=== PATIENT | female | born 1965 | race Caucasian/White ===

== ENCOUNTER 2019-02-25 10:37 | Outpatient (RCR) | payer MEDICARE, SELFPAY | END 2019-03-10 00:01 | LOC: ONCRAD 10:37 | PROVIDERS: Family Provider Family Medicine; Visit Provider Specialist | DX: C15.5 Malignant neoplasm of lower third of esophagus (principal); C79.51 Secondary malignant neoplasm of bone; C77.2 Secondary and unspecified malignant neoplasm of intra-abdominal lymph nodes; C79.72 Secondary malignant neoplasm of left adrenal gland; G89.3 Neoplasm related pain (acute) (chronic); K21.9 Gastro-esophageal reflux disease without esophagitis; E11.9 Type 2 diabetes mellitus without complications; M54.5 Low back pain; Z79.891 Long term (current) use of opiate analgesic | CPT/HCPCS: 77290; 77295; 77300 ×2; 77301; 77334 ×2; 77338; 77470; 99205 ==

== ENCOUNTER 2019-03-22 18:19 | Emergency (ER) | payer MEDICARE, SELFPAY ==
[2019-03-22 18:38] VITALS: BP 131/98; PULSE 83; RESP 16; TEMP 37; O2SAT 100; BMI 23.3
--- NOTE | 2019-03-22 20:20 | ED_ITS ---
Entered by Hannah Gutierrez, acting as scribe for Jerod Banda MD, [facility] 22, 2019 18:19 HPI - General Adult General: Chief complaint: General Medical Stated complaint: Cancer Pt dehydration Time Seen by Provider: 03/22/19 20:19 Source: patient Mode of arrival: ambulatory Limitations: no limitations History of Present Illness: HPI narrative: 53 yo Female presents to ED with complaint of dehydration. Pt has esophageal cancer. Pt states she has back pain and is dehydrated. Pt states that she got choked and threw up. Pt's friend states that the tumor lays on her back and puts pressure on the nerves. Pt's friend states that the patient got very tired after her choking episode. Pt's friend states that the patient has had to get hydration treatments every 3-4 days and today is the 4th day. complaint: back pain/dehydrated Onset (ago): hour(s) Location: back Radiation: non-radiation Severity scale (1-10): 10 Quality: sharp Pain Consistency: constant Relieving factors: none Exacerbating factors: none Associated symptoms: Reports fevers/chills, nausea and vomiting Review of Systems General: Reports: 10 or more systems reviewed and unremarkable except in HPI and below Const: Reports: fever and chills GI: Reports: nausea and vomiting Musc: Reports: back pain PFSH ED PFSH: Statuses (acute, chronic, etc) shown below reflect problem list status as previously entered and may not be historically accurate Medical History (Updated 03/22/19 @ 22:53 by Jerod Banda MD, [facility] Biliary colic (Acute) Cholecystitis (Acute) Cholelithiasis (Acute) GI bleeding (Acute) HTN (hypertension) (Acute) UTI (urinary tract infection) (Acute) Surgical History (Updated 03/22/19 @ 20:33 by Hannah Gutierrez) History of cholecystectomy (Acute) Social History Smoking and tobacco status: never smoked Physical Exam Const: COMMON NORMALS: no apparent distress, average body habitus, oriented x3, no limitations, healthy appearing, alert and well nourished HENMT: COMMON NORMALS: normocephalic, head/scalp atraumatic, hearing grossly normal bilaterally, external ears normal, EAC's normal, TM's normal bilaterally, external nose normal, nasal mucous membranes and turbinates normal, moist oral mucous membranes, oropharynx normal, dentition normal and gingiva normal HEAD & SCALP: normocephalic and atraumatic NOSE: external nose normal and nasal mucous membranes and turbinates normal EXTERNAL EAR: Yes external ears normal EXTERNAL AUDITORY CANAL: EAC's normal TYMPANIC MEMBRANE: TM's normal bilaterally Eye: COMMON NORMALS: PERRL, EOMs intact bilaterally, conjunctivae normal, no scleral icterus, no papilledema, normal visual alston by confrontation and fundi normal bilaterally CONJUNCTIVA: Yes conjunctivae normal PUPIL: Yes PERRL DIRECT OPHTHALMOSCOPY: Yes no papilledema and Yes fundi normal bilaterally Neck/C-Spine: COMMON NORMALS: full ROM, supple, no meningeal signs, no JVD and no carotid bruits Chest: COMMONS NORMALS: inspection of chest normal and palpation of chest normal Resp: COMMON NORMALS: normal respiratory effort, no retractions, no use of accessory muscles, clear to auscultation bilaterally and percussion normal AUSCULTATION: clear to auscultation bilaterally PERCUSSION: percussion normal Cardio: COMMON NORMALS: no JVD, regular rate, regular rhythm, S1 normal heart sound, S2 normal heart sound, no gallops, no clicks, no murmurs, no rub and peripheral pulses 2+ throughout RATE: regular rate RHYTHM: regular rhythm HEART SOUNDS: S1 normal and S2 normal PERIPHERAL PULSES: pulses 2+ throughout GI: COMMON NORMALS: normal to inspection, nondistended, normoactive bowel sounds, soft to palpation, non-tender, no hepatosplenomegaly, no masses and no bruits PALPATION: Yes soft and Yes no hepatosplenomegaly : COMMON NORMALS: Yes no CVA tenderness BLADDER/KIDNEY EXAM: Yes no CVA tenderness Back/Pelvis: COMMON NORMALS: no CVA tenderness Extremity: COMMON NORMALS: normal to inspection, full ROM, normal capillary refill, no joint enlargement, no clubbing, cyanosis or edema, no calf tenderness and no pedal edema Neuro: COMMON NORMALS: oriented x3 SENSORIUM/ORIENTATION: Yes alert MENINGEAL SIGNS: Yes no meningeal signs Skin: COMMON NORMALS: no rashes or lesions noted, no wounds, skin turgor normal, no jaundice, no petechiae and no mottling GENERAL SKIN EXAM: no rashes or lesions noted and turgor normal Course Reevaluation(s): Reevaluation #1: Patient seen she feels much better. Pain resolved, no other symptoms. Discussed her lab and imaging findings with her-no acute findings. She is feels she is ready to go home. We will discharge her home with no new orders or medication. She voiced understanding and is in agreement with the plan. Time: 22:51 Vital Signs: Vital signs: Vital Signs Temperature 98.6 F 03/22/19 18:38 Pulse Rate 70 03/22/19 21:42 Respiratory Rate 18 03/22/19 21:42 Blood Pressure 123/85 03/22/19 21:42 Pulse Oximetry 100 03/22/19 21:42 MDM - General Adult MDM Narrative: Medical decision making narrative: Patient with metastatic esophageal cancer who presents to the emergency department with nonspecific s ymptoms. Evaluation in the emergency department was unremarkable. She is discharged home with no new orders. Medical Records: Attestation: I reviewed the patient's medical records. Lab Data: Attestation: I reviewed the patient's lab results. Labs: Lab Results 03/22/19 03/22/19 Range/Units 21:08 21:08 WBC 3.8 L (4.0-10.0) 10^3/ uL RBC 4.19 (4.1-5.3) 10^6/u L Hgb 11.8 (11.5-15.3) g/dL Hct 36.8 L (37.0-47.0) % MCV 87.8 (81-99) fL MCH 28.2 (28.0-34.0) pg MCHC 32.1 (30.0-36.0) g/dL RDW 13.8 (12.1-15.1) % Plt Count 178 (130-400) 10^3/c mm MPV 10.3 (7.4-10.4) fL Neut % (Auto) 71.6 % Lymph % (Auto) 15.9 % [place] % (Auto) 10.9 % Eos % (Auto) 0.8 % Baso % (Auto) 0.3 % Neut # (Auto) 2.8 (1.8-7.7) 10^3/u L Lymph # (Auto) 0.6 L (0.8-4.8) 10^3/u L [place] # (Auto) 0.4 (0.2-0.9) 10^3/u L Eos # (Auto) 0.0 (0.0-0.8) 10^3/u L Baso # (Auto) 0.0 (0.0-0.1) 10^3/u L Nucleated RBC % (a uto) 0 % Nucleated RBCs # 0.0 /100WBC Sodium 148 H (136-145) mmol/L Potassium 3.7 (3.5-5.1) mmol/L Chloride 106 (98-107) mmol/L Carbon Dioxide 26 (22-29) mmol/L Anion Gap 19.7 H (5-19) BUN 6 (6-20) mg/dL Creatinine 0.4 L (0.5-0.9) mg/dL GFR Calculation 165.7 H (90-130) mL/min Glucose 108 (74-109) mg/dL Calcium 9.2 (8.6-10.0) mg/Dl Total Bilirubin 0.6 (0.15-1.2) mg/dL AST 14 (0-32) U/L ALT 7 (0-33) U/L Alkaline Phosphata se 85 (35-105) IU/L Total Protein 6.4 L (6.6-8.7) g/dL Albumin 3.4 L (3.5-5.2) g/dL Globulin 3.0 (1.3-4.6) g/dL Lipase 12 L (13-60) U/L Imaging Data^: CXR: Attestation: I personally reviewed and interpreted this imaging study as follows: My impression: No acute findings Discharge Plan Discharge Patient Disposition: Home, Self-Care Clinical Impression: Vomiting Qualifiers: Vomiting type: unspecified Vomiting Intractability: non-intractable Nausea presence: with nausea Qualified Code(s): R11.2 - Nausea with vomiting, unspecified Condition: Stable Prescriptions: New Zofran 4 mg tablet 4 mg PO Q8H PRN (Reason: nausea and vomiting) Qty: 30 RF: 0 Continued oxycodone 15 mg tablet 15 mg PO Q4H RF: 0 famotidine 20 mg tablet 20 mg PO BID RF: 0 lisinopril 10 mg tablet 10 mg PO DAILY RF: 0 metoprolol succinate 25 mg tablet extended release 24 hr 12.5 mg PO DAILY RF: 0 ondansetron 4 mg tablet,disintegrating 4 mg translingual Q4H RF: 0 fluticasone propionate 50 mcg/actuation spray,suspension 1 spray INTRANASAL DAILY RF: 0 rosuvastatin 20 mg tablet 20 mg PO DAILY RF: 0 Discharge Orders: Discharge Order (Routine); Ordered 03/22/19 Ordered By: Jerod Banda Referrals: Antony Armstrong MD [Primary Care Provider] - 1-3 days Discharge Diet: Advance as tolerated Discharge Activity: Resume usual activity Activity Restrictions/Additional Instructions: Return for any new or worsening symptoms. Follow-up with your primary care provider within 3 days. Take the medicine for nausea as needed for nausea or vomiting. Drink plenty of fluids to keep well-hydrated. Coding Level of Care Code ED Manager Of Transportation for Chg Fwd Exam Problem Focused The documentation recorded by the Matt marrero Carmen, accurately reflects the service I personally performed and the decisions made by Solo ty Adegoke I, MD, [facility] Mar 22, 2019 18:19
[2019-03-22 20:24] VITALS: BP 136/98; PULSE 81; RESP 18; O2SAT 100
--- NOTE | 2019-03-22 21:07 | XR_ITS ---
WS: [id number] PROCEDURE: XR chest 2V* [id number] CLINICAL INFORMATION: vomiting COMPARISON: FINDINGS: Heart: Normal cardiac silhouette. Lungs: Lungs are clear. No consolidation or pleural fluid. Segmental elevation right hemidiaphragm. Bones: Normal visualized bony structures. XR/XR chest 2V* [id number] IMPRESSION: No acute chest findings.
[2019-03-22 21:21] LABS: Basophils % 0.3 %; Eosinophils % 0.8 %; Hematocrit 36.8 % (37.0-47.0); Hemoglobin 11.8 g/dL (11.5-15.3); Lymphocytes # 0.6 10^3/uL (0.8-4.8); Lymphocytes % 15.9 %; Mean Corpuscular HGB Conc 32.1 g/dL (30.0-36.0); Mean Corpuscular Hemoglobin 28.2 pg (28.0-34.0); Mean Corpuscular Volume 87.8 fL (81-99); Mean Platelet Volume 10.3 fL (7.4-10.4); Monocytes # 0.4 10^3/uL (0.2-0.9); Monocytes % 10.9 %; Neutrophils # 2.8 10^3/uL (1.8-7.7); Neutrophils % 71.6 %; Nucleated Red Blood Cells % 0 %; Platelet Count 178 10^3/cmm (130-400); Red Blood Count 4.19 10^6/uL (4.1-5.3); Red Cell Distribution Width 13.8 % (12.1-15.1); White Blood Count 3.8 10^3/uL (4.0-10.0)
[2019-03-22 21:31] VITALS: RESP 16
[2019-03-22] MEDS: morphine 4 mg/mL SDV 1 mL 6 MG IVP (21:31)
[2019-03-22] MEDS: sodium chloride 0.9% 1,000 ML 999 ML IV (21:32)
[2019-03-22] MEDS: ondansetron 2 mg/ML SDV 2 mL 4 MG IVP (21:32)
[2019-03-22 21:38] LABS: Alanine Aminotransferase 7 U/L (0-33); Albumin Level 3.4 g/dL (3.5-5.2); Alkaline Phosphatase 85 IU/L (35-105); Anion Gap 19.7 (5-19); Aspartate Amino Transferase 14 U/L (0-32); Blood Urea Nitrogen 6 mg/dL (6-20); Calcium 9.2 mg/Dl (8.6-10.0); Carbon Dioxide 26 mmol/L (22-29); Chloride 106 mmol/L (98-107); Glomerular Filtration Rate 165.7 mL/min (90-130); Glucose 108 mg/dL (74-109); Lipase 12 U/L (13-60); Potassium 3.7 mmol/L (3.5-5.1); Sodium 148 mmol/L (136-145); Total Bilirubin 0.6 mg/dL (0.15-1.2); Total Protein 6.4 g/dL (6.6-8.7)
[2019-03-22 21:42] VITALS: BP 123/85; PULSE 70; RESP 18; O2SAT 100
[2019-03-22 23:28] VITALS: BP 138/98; PULSE 89; RESP 16; O2SAT 97
== END 2019-03-22 23:28 | disposition home or self-care (01) ==
PROVIDERS: Emergency Provider Family Medicine; Family Provider Family Medicine; PCP Family Medicine
DX: R11.2 Nausea with vomiting, unspecified (principal); Z85.01 Personal history of malignant neoplasm of esophagus; I10 Essential (primary) hypertension
CPT/HCPCS: 71046; 80053; 83690; 85025; 96360; 96361; 96374; 96375; 99282; J2270; J2405; J7030

== ENCOUNTER 2019-04-08 15:47 | Emergency (ER) | payer MEDICARE, SELFPAY ==
[2019-04-08 16:30] VITALS: BP 133/76; PULSE 86; RESP 16; TEMP 36.3; O2SAT 100; BMI 21.6
--- NOTE | 2019-04-08 16:34 | XR_ITS ---
WS: [id number] Left femur and thigh, AP and lateral views, 04/08/2019 Clinical Data: FALL Comparison: None. Findings: No fractures or dislocations are seen. The soft tissues are normal. The visualized knee shows no abno rmalities. XR/XR femur LT min 2V* [id number] Impression: Negative left femur and thigh.
--- NOTE | 2019-04-08 16:34 | XR_ITS ---
WS: [id number] Left hip, 2 views, 04/08/2019 Clinical Data: FALL Comparison: None. Findings: No fractures or dislocations are seen. The hip joint is intact. The soft tissues are not remarkable. The adjacent pelvis is normal. XR/XR hip LT 2-3V wo/w pel* [id number] Impression: Negative left hip.
--- NOTE | 2019-04-08 19:09 | ED_ITS ---
HPI - Fall General: Chief Complaint: Fall Stated Complaint: fall Time Seen by Provider: 04/08/19 18:57 Source: patient Mode of arrival: ambulatory Limitations: no limitations History of Present Illness: HPI Narrative: Patient comes in for evaluation after a trip and fall at the [employer] store injuring her left hip and leg. Patient does have a history of cancer and is presently under treatment with radiation. Patient denies any other complaints of pain or discomfort. Patient appears well. Patient appears in moderate pain. Review of Systems General: Reports: 10 or more systems reviewed and unremarkable except in HPI and below Musc: Reports: extremity pain (left hip and leg) PFS ED PFSH: Statuses (acute, chronic, etc) shown below reflect problem list status as previously entered and may not be historically accurate Medical History (Updated 04/08/19 @ 19:11 by ACACIA Gauthier) Biliary colic (Acute) Cholecystitis (Acute) Cholelithiasis (Acute) GI bleeding (Acute) HTN (hypertension) (Acute) UTI (urinary tract infection) (Acute) Surgical History (Updated 03/22/19 @ 20:33 by Hannah Gutierrez) History of cholecystectomy (Acute) Social History Smoking and tobacco status: never smoked Physical Exam Const: COMMON NORMALS: no apparent distress and oriented x3 GENERAL APPEARANCE: cooperative HENMT: COMMON NORMALS: normocephalic, external ears normal, EAC's normal, TM's normal bilaterally and external nose normal HEAD & SCALP: normal to inspection and normocephalic FACE & SINUS: normal facial exam NOSE: external nose normal GENERAL EAR: hearing not grossly impaired EXTERNAL EAR: Yes external ears normal EXTERNAL AUDITORY CANAL: EAC's normal TYMPANIC MEMBRANE: TM's normal bilaterally MOUTH: oral and palatal mucosa normal THROAT: posterior oropharynx normal Eye: COMMON NORMALS: PERRL and EOMs intact bilaterally PUPIL: Yes PERRL Neck/C-Spine: COMMON NORMALS: full ROM and no lymphadenopathy Lymph: LYMPHATIC: no lymphedema noted Chest: COMMONS NORMALS: inspection of chest normal and palpation of chest normal Resp: COMMON NORMALS: normal respiratory effort and clear to auscultation bilaterally AUSCULTATION: clear to auscultation bilaterally Cardio: COMMON NORMALS: regular rate and regular rhythm RATE: regular rate RHYTHM: regular rhythm GI: COMMON NORMALS: normal to inspection, nondistended, normoactive bowel sounds and non-tender : COMMON NORMALS: Yes no CVA tenderness BLADDER/KIDNEY EXAM: Yes no CVA tenderness Back/Pelvis: COMMON NORMALS: no CVA tenderness and thoracic and lumbar spine normal to inspection Extremity: COMMON NORMALS: normal to inspection NARRATIVE EXTREMITY EXAM: no deformity noted, tenderness noted to lateral left hip, and left knee, no obvious deformity GENERAL: No edema Neuro: COMMON NORMALS: oriented x3, moves all extremities and no focal motor deficits Psych: COMMON NORMALS: mental status grossly normal and cooperative Skin: COMMON NORMALS: no rashes or lesions noted GENERAL SKIN EXAM: no rashes or lesions noted Course Vital Signs: Vital signs: Vital Signs Temperature 97.4 F L 04/08/19 16:30 Pulse Rate 86 04/08/19 16:30 Respiratory Rate 16 04/08/19 16:30 Blood Pressure 133/76 04/08/19 16:30 Pulse Oximetry 100 04/08/19 16:30 MDM - Fall MDM Narrative: Medical decision making narrative: Patient comes in for evaluation of injury sustained during a fall at the [employer]. Exam notes no obvious injury or deformity. Patient is weightbearing with help of a cane. Patient does have some tenderness to the musculature. Differential diagnosis includes fractures, sprains, contusions, intervertebral disc injury. X-rays of the hip and femur on the left side noted no fracture. Patient reports understanding agreed to plan for treatment and need for follow-up. Patient was medicated in the ER for pain and nausea. Patient tolerated well. Discharge Plan Discharge Patient Disposition: Home, Self-Care Clinical Impression: Fall from other slipping, tripping, or stumbling Contusion Qualifiers: Encounter type: initial encounter Contusion area: hip Laterality: left Qualified Code(s): S70.02XA - Contusion of left hip, initial encounter Condition: Stable Prescriptions: No Action oxycodone 15 mg tablet 15 mg PO Q4H RF: 0 famotidine 20 mg tablet 20 mg PO BID RF: 0 lisinopril 10 mg tablet 10 mg PO DAILY RF: 0 metoprolol succinate 25 mg tablet extended release 24 hr 12.5 mg PO DAILY RF: 0 ondansetron 4 mg tablet,disintegrating 4 mg translingual Q4H RF: 0 fluticasone propionate 50 mcg/actuation spray,suspension 1 spray INTRANASAL DAILY RF: 0 rosuvastatin 20 mg tablet 20 mg PO DAILY RF: 0 Zofran 4 mg tablet 4 mg PO Q8H PRN (Reason: nausea and vomiting) Qty: 30 RF: 0 Discharge Orders: Discharge Order (Routine); Ordered 04/08/19 Ordered By: Jason Darby Referrals: Antony Armstrong MD [Primary Care Provider] - Discharge Diet: Usual diet Discharge Activity: Increase activity as tolerated Patient Instructions: Contusion Activity Restrictions/Additional Instructions: Activity as tolerated Drink plenty of water Follow-up with primary care in one week or as needed Return to ER as needed Coding Level of Care Code ED Cash Management Officer for Chg Fwd Exam Problem Focused
[2019-04-08] MEDS: HYDROcodone-acetaminophen 5-325 mg Tablet 1 TAB PO (19:15)
[2019-04-08] MEDS: ondansetron 4 MG Tablet PO (19:18)
[2019-04-08] MEDS: ondansetron 2 mg/ML SDV 2 mL 4 MG IM (19:32)
[2019-04-08 19:42] VITALS: RESP 16; O2SAT 99
[2019-04-08] MEDS: morphine 4 mg/mL SDV 1 mL IM (19:42)
--- NOTE | 2019-04-08 20:01 | PC.NURSE ---
after PO meds adm, pt began to vomit with both pills in emesis. New orders obtained from PA to adm meds via IM shots
[2019-04-08 20:02] VITALS: BP 127/87; PULSE 86; RESP 16; TEMP 36.8; O2SAT 99
== END 2019-04-08 20:00 | disposition home or self-care (01) ==
PROVIDERS: Emergency Provider Nurse Practitioner Family; Family Provider Family Medicine; PCP Family Medicine
DX: S70.02XA Contusion of left hip, initial encounter (principal); W01.0XXA Fall on same level from slipping, tripping and stumbling without subsequent striking against object, initial encounter; Y92.512 Supermarket, store or market as the place of occurrence of the external cause; I10 Essential (primary) hypertension
CPT/HCPCS: 73502; 73552; 96372; 99281; 99283; J2270; J2405; Q0162

== ENCOUNTER 2019-04-10 05:47 | Outpatient (RCR) | payer MEDICARE, SELFPAY ==
[2019-03-13 10:06] LABS: Basophils % 0.2 %; Eosinophils % 0.4 %; Hematocrit 40.9 % (37.0-47.0); Hemoglobin 13.2 g/dL (11.5-15.3); Lymphocytes # 1.2 10^3/uL (0.8-4.8); Lymphocytes % 23.8 %; Mean Corpuscular HGB Conc 32.3 g/dL (30.0-36.0); Mean Corpuscular Hemoglobin 27.8 pg (28.0-34.0); Mean Corpuscular Volume 86.1 fL (81-99); Mean Platelet Volume 11.1 fL (7.4-10.4); Monocytes # 0.5 10^3/uL (0.2-0.9); Monocytes % 9.9 %; Neutrophils # 3.4 10^3/uL (1.8-7.7); Neutrophils % 65.3 %; Nucleated Red Blood Cells % 0 %; Platelet Count 228 10^3/cmm (130-400); Red Blood Count 4.75 10^6/uL (4.1-5.3); Red Cell Distribution Width 13.5 % (12.1-15.1); White Blood Count 5.2 10^3/uL (4.0-10.0)
[2019-03-13 10:22] LABS: Alanine Aminotransferase 7 U/L (0-33); Albumin Level 4.1 g/dL (3.5-5.2); Alkaline Phosphatase 89 IU/L (35-105); Anion Gap 14.6 (5-19); Aspartate Amino Transferase 9 U/L (0-32); Blood Urea Nitrogen 14 mg/dL (6-20); Carbon Dioxide 27 mmol/L (22-29); Chloride 103 mmol/L (98-107); Globulin 2.9 g/dL (1.3-4.6); Glomerular Filtration Rate 128.1 mL/min (90-130); Glucose 142 mg/dL (74-109); Potassium 3.6 mmol/L (3.5-5.1); Sodium 141 mmol/L (136-145); Total Bilirubin 0.4 mg/dL (0.15-1.2)
[2019-03-13] MEDS: sodium chloride 0.9% 1,000 ML 999 ML IV (10:22)
[2019-03-19] MEDS: sodium chloride 0.9% 1,000 ML 999 ML IV (10:31)
[2019-03-20] MEDS: sodium chloride 0.9% 1,000 ML 999 ML IV (11:01)
--- NOTE | 2019-03-23 12:20 | ONCRAD TMN_ITS ---
Radiation Oncology Weekly Treatment Management Patient: Maria D Stubbs MR#: [id number] : 1965> Age: 53> Sex: Female Dictated by: Dr. Alber Seaman Date of Service: 03/17/2019 Referring Physician(s) : Dr. 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 ID: [id number], Energy: 15X, Dose/Fx (cGy): 300, #Fx: , Dose Correction (cGy): 0, Total Dose (cGy): 300, Start Date: 03/17/2019, Elapsed Days: 0 Esophagus 50Gy, Treatment Site: [id number], Ref. ID: [id number], Energy: 6X, Dose/Fx (cGy): 250, #Fx: , Dose Correction (cGy): 0, Total Dose (cGy): 250, Start Date: 03/17/2019, Elapsed Days: 0 Current Complaints/Interval History: Constitutional Complains of lack of appetite and change in weight down 8.6 lbs. since last visit on 02/25/19. Denies fatigue, fever and night sweats. ENMT Denies odynophagia but has dysphagia tolerating soft diet. Respiratory Complains of hiccoughs. Denies cough and dyspnea. Gastrointestinal Complains of vomiting had it on Saturday. Denies abdominal pain, heartburn / dyspepsia and nausea. Musculoskeletal Complains of bone pain on the right lower side of the back. Denies muscle weakness. Current Medications: Dexamethasone, hydroCHLOROthiazide, lisinopril, metoprolol Succinate ER, oxyCODONE HCl, oxyCODONE HCl, raNITIdine HCl, senna S. Allergies: Latex and Adhesive tape. Vital Signs: Performed on 03/17/2019 1:44 PM BMI - 24.629 kg/m2 (high), Height - 65.00 in, Weight - 148.0 lbs, Temperature - 97.6 f, Pulse - 76, Respiration - 20, O2 Sat - 99 %, Pain - 10 and BP - 130/ 86 mm(hg). Physical Exam: Appears stable, no skin erythema or desquamation. Performance Status: 0 - Fully active, able to carry on all predisease activities without restrictions. (ECOG) Lab: Test performed on 03/13/2019 11:10 AM Cr Clearance (Est) - 142.56 ml/min (high). Imaging: No new diagnostic imaging was performed since the last weekly treatment visit. All radiation therapy related imaging (including but not limited to kV and CBCT generated images) was reviewed. Appropriate changes, if any, were made to assure accurate target localization. Impression/Plan: Started RT today. Continue treatment as planned. CPT: 43937 Signed by: Dr. Alber Seaman>03/23/2019 12:18:52 PM <<Signature on File>>
--- NOTE | 2019-03-24 14:14 | ONCRAD TMN_ITS ---
Radiation Oncology Weekly Treatment Management Patient: Maria D Stubbs MR#: [id number] : 1965> Age: 53> Sex: Female Dictated by: Dr. Alber Seaman Date of Service: 03/24/2019 Referring Physician(s) : Dr. 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 ID: [id number], Energy: 15X, Dose/Fx (cGy): 300, #Fx: , Dose Correction (cGy): 0, Total Dose (cGy): 1,800, Start Date: 03/17/2019, Elapsed Days: 7 Treatment Site: [id number], Ref. ID: [id number], Energy: 6X, Dose/Fx (cGy): 250, #Fx: , Dose Correction (cGy): 0, Total Dose (cGy): 1,500, Start Date: 03/17/2019, Elapsed Days: 7 Current Complaints/Interval History: Constitutional Complains of lack of appetite and has to eat soft foods and drinking liquids and gained 4.2 lbs. since last OTV on 03/17/19. Denies fatigue, fever and night sweats. ENMT Dysphagia improved some tolerating soft diet. Respiratory Complains of hiccoughs occasionally. Denies cough, dyspnea and wheezing. Gastrointestinal Complains of vomiting had it a couple of times on Saturday. Denies abdominal pain, constipation, diarrhea, heartburn / dyspepsia and nausea. Musculoskeletal The pain between the shoulder blades is improving Current Medications: Dexamethasone, hydroCHLOROthiazide, lisinopril, metoprolol Succinate ER, ondansetron, oxyCODONE HCl, oxyCODONE HCl, raNITIdine HCl, senna S. Allergies: Latex and Adhesive tape. Vital Signs: Performed on 03/24/2019 1:29 PM BMI - 25.328 kg/m2 (high), Height - 65.00 in, Weight - 152.2 lbs, Temperature - 97.8 f, Pulse - 82, Respiration - 20, O2 Sat - 99 %, Pain - 5 and BP - 102/ 65 mm(hg). Physical Exam: Appears stable, no skin erythema or desquamation. Performance Status: 0 - Fully active, able to carry on all predisease activities without restrictions. (ECOG) Lab: Test performed on 03/13/2019 11:10 AM Cr Clearance (Est) - 142.56 ml/min (high). Imaging: No new diagnostic imaging was performed since the last weekly treatment visit. All radiation therapy related imaging (including but not limited to kV and CBCT generated images) was reviewed. Appropriate changes, if any, were made to assure accurate target localization. Impression/Plan: Tolerating treatment well with good response. Continue treatment as planned. CPT: 91386 Signed by: Dr. Alber Seaman>03/24/2019 2:12:34 PM <<Signature on File>>
[2019-03-25] MEDS: sodium chloride 0.9% 500 ML IV (13:30)
[2019-03-31] MEDS: sodium chloride 0.9% 1,000 ML 999 ML IV (13:58)
--- NOTE | 2019-03-31 16:34 | ONCRAD TMN_ITS ---
Radiation Oncology Weekly Treatment Management Patient: Maria D Stubbs MR#: [id number] : 1965> Age: 53> Sex: Female Dictated by: Dr. Alber Seaman Date of Service: 03/31/2019 Referring Physician(s) : Dr. 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 ID: [id number], Energy: 15X, Dose/Fx (cGy): 300, #Fx: , Dose Correction (cGy): 0, Total Dose (cGy): 3,000, Start Date: 03/17/2019, End Date: 03/30/2019, Elapsed Days: 13 Treatment Site: [id number], Ref. ID: [id number], Energy: 6X, Dose/Fx (cGy): 250, #Fx: , Dose Correction (cGy): 0, Total Dose (cGy): 2,750, Start Date: 03/17/2019, Elapsed Days: 14 Current Complaints/Interval History: Constitutional Complains of lack of appetite. Complains of mild fatigue. Complains of rigors / chills. Complains of change in weight. Denies fever and night sweats. ENMT Dysphagia improved but has odynophagia when eating some solid food. Respiratory Denies cough, dyspnea, hiccoughs and wheezing. Gastrointestinal Complains of nausea and intermittent vomiting. Denies abdominal pain, constipation, diarrhea and heartburn / dyspepsia. Current Medications: Dexamethasone, hydroCHLOROthiazide, lisinopril, metoprolol Succinate ER, ondansetron, oxyCODONE HCl, oxyCODONE HCl, raNITIdine HCl, senna S. Allergies: Latex and Adhesive tape. Vital Signs: Performed on 03/31/2019 1:36 PM BMI - 23.53 kg/m2 (high), Height - 65.00 in, Weight - 141.4 lbs, Temperature - 98.5 f, Pulse - 98, Respiration - 20, O2 Sat - 98 %, Pain - 10 and BP - 145/ 87 mm(hg)(high/). Physical Exam: Appears stable, no skin erythema or desquamation. Performance Status: 0 - Fully active, able to carry on all predisease activities without restrictions. (ECOG) Lab: Test performed on 03/13/2019 11:10 AM Cr Clearance (Est) - 142.56 ml/min (high). Imaging: No new diagnostic imaging was performed since the last weekly treatment visit. All radiation therapy related imaging (including but not limited to kV, CBCT generated images) was reviewed. Appropriate changes, if any, were made to assure accurate target localization. Impression/Plan: Tolerating treatment well with expected side effects. Continue treatment as planned. She will get IV fluid today. Encouraged nutrient intake CPT: 71285 Signed by: Dr. Alber Seaman>03/31/2019 4:32:03 PM <<Signature on File>>
[2019-04-02] MEDS: sodium chloride 0.9% 500 ML IV (13:40)
[2019-04-09] MEDS: sodium chloride 0.9% 1,000 ML 999 ML IV (13:58)
--- NOTE | 2019-04-14 12:10 | ONCRAD TMN_ITS ---
Radiation Oncology Weekly Treatment Management Patient: Maria D Stubbs MR#: [id number] : 1965 Age: 53 Sex: Female Dictated by: Dr. Alber Seaman Date of Service: 04/09/2019 Referring Physician(s) : Dr. 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 ID: [id number], Energy: 15X, Dose/Fx (cGy): 300, #Fx: , Dose Correction (cGy): 0, Total Dose (cGy): 3,000, Start Date: 03/17/2019, End Date: 03/30/2019, Elapsed Days: 13 Course: Esophagus 50Gy, Treatment Site: [id number], Ref. ID: [id number], Energy: 6X, Dose/Fx (cGy): 250, #Fx: , Dose Correction (cGy): 0, Total Dose (cGy): 4,187.5, Start Date: 03/17/2019, Elapsed Days: 23 Course: Esophagus 50Gy, Treatment Site: [id number], Ref. ID: [id number], Energy: 6X, Dose/Fx (cGy): 62.5, #Fx: , Dose Correction (cGy): 0, Total Dose (cGy): 62.5, Start Date: 04/03/2019, End Date: 04/03/2019, Elapsed Days: 0 Current Complaints/Interval History: Constitutional Complains of lack of appetite. Complains of mild fatigue. Complains of rigors / chills. Denies fever and night sweats. ENMT Denies dysphagia but has odynophagia occasionally. Respiratory Denies cough, dyspnea, hiccoughs and wheezing. Gastrointestinal Complains of nausea and intermittent vomiting. Denies abdominal pain and heartburn / dyspepsia. Current Medications: Dexamethasone, hydroCHLOROthiazide, lisinopril, magnesium Citrate, metoprolol Succinate ER, ondansetron, oxyCODONE HCl, oxyCODONE HCl, raNITIdine HCl, senna S. Allergies: Latex and Adhesive tape. Vital Signs: Performed on 04/09/2019 1:33 PM BMI - 23.564 kg/m2 (high), Height - 65.00 in, Weight - 141.6 lbs, Temperature - 97.3 f, Pulse - 95, Respiration - 20, O2 Sat - 99 %, Pain - 8 and BP - 105/ 77 mm(hg). Physical Exam: Appears stable, no skin erythema or desquamation. Performance Status: 1 - No physically strenuous activity, but ambulatory and able to carry out light or sedentary work (e.g. office work, light house work). (ECOG) Lab: Test performed on 03/13/2019 11:10 AM Cr Clearance (Est) - 142.56 ml/min (high). Imaging: No new diagnostic imaging was performed since the last weekly treatment visit. All radiation therapy related imaging (including but not limited to CBCT generated images) was reviewed. Appropriate changes, if any, were made to assure accurate target localization. Impression/Plan: Tolerating treatment well with good response ??? improved dysphagia. Continue treatment as planned. CPT: 32779 Signed by: Dr. Alber Seaman>04/14/2019 12:09:11 PM <<Signature on File>>
== END 2019-04-10 23:59 | disposition home or self-care (01) ==
LOC: ONCMED 05:47
PROVIDERS: Internal Medicine Medical Oncology; Family Provider Family Medicine; PCP Family Medicine; Visit Provider Radiology Radiation Oncology
DX: Z51.0 Encounter for antineoplastic radiation therapy (principal); C15.5 Malignant neoplasm of lower third of esophagus; C79.51 Secondary malignant neoplasm of bone; E86.0 Dehydration; G89.3 Neoplasm related pain (acute) (chronic); Z79.891 Long term (current) use of opiate analgesic
CPT/HCPCS: 77014; 77280; 77336; 77386; 77387; 77412; 77427; 80053; 85025; 96360; 96361; 96365; 96367; 96375; G6002; J1100; J2405; J3490; J7030; J7040

== ENCOUNTER 2019-04-16 05:49 | Outpatient (RCR) | payer MEDICARE, SELFPAY ==
[2019-04-14] MEDS: sodium chloride 0.9% 1,000 ML 999 ML IV (14:10)
== END 2019-04-16 23:59 | disposition home or self-care (01) ==
LOC: ONCMED 05:49
PROVIDERS: Family Provider Family Medicine; PCP Family Medicine; Visit Provider Radiology Radiation Oncology
DX: Z51.0 Encounter for antineoplastic radiation therapy (principal); C15.5 Malignant neoplasm of lower third of esophagus; E86.0 Dehydration
CPT/HCPCS: 77386; 96361; 96365; 96367; J1100; J2405; J3490; J7030

== ENCOUNTER 2019-04-18 15:20 | Emergency (ER) | payer MEDICARE, SELFPAY ==
[2019-04-18 15:24] VITALS: BP 114/80; PULSE 99; RESP 18; TEMP 36.6; O2SAT 99; BMI 28.3
--- NOTE | 2019-04-18 16:29 | USCV_ITS ---
Maria D Stubbs Age: 53 Gender: F : 1965 Exam Date: 04/18/2019 16:40 Ordering Phys: Bryson Chapman AUCTION ASSISTANT Technologist: Amna Naqvi Exam Location: [facility] [place] Indication: Lower extremity swelling HISTORY: Lower extremity swelling. PROCEDURES: Comparison: none available. Grayscale and duplex color Doppler venous Ultrasound performed in bilateral lower extremities. The following venous structures were evaluated: common femoral vein, profunda vein, proximal portion of the greater saphenous vein, superficial femoral vein, and the popliteal vein. In addition, the posterior tibial and peroneal trunk were evaluated. Serial compression, augmentation maneuvers, and spectral Doppler flow evaluation were performed. FINDINGS: Within the bilateral lower extremity deep venous system, including the common femoral, femoral, popliteal, posterior tibial and peroneal veins, appropriate anechoic, compressible lumens are noted. Duplex color Doppler evaluation shows spontaneous cepahalad flow with appropriate augmentation waveforms. The saphenofemoral junction is/are patent. No evidence of DVT seen in any vessel visualized at this time. Mid calf veins not well seen, bilaterally. CONCLUSIONS No evidence of bilateral lower extremity occlusive or obvious non occlusive DVT. Ricardo Ackerman MD (Electronically Signed) Final Date: 19 April 2019 08:40 S
--- NOTE | 2019-04-18 16:30 | XR_ITS ---
WS: [id number] ONE VIEW CHEST HISTORY: 53 years old Female with lower extremity swelling AP upright chest comparison 03/22/2019 FINDINGS: Lungs are clear and well aerated and costophrenic angle sharp. Heart size and pulmonary vascular timmy ings unremarkable. No subdiaphragmatic free air. No fracture seen. XR/XR chest 1V portable [id number] IMPRESSION: No acute cardiopulmonary findings.
--- NOTE | 2019-04-18 16:33 | ED_ITS ---
HPI - General Adult General: Chief complaint: General Medical Stated complaint: legs/feet swelling pain Time Seen by Provider: 04/18/19 15:59 History of Present Illness: HPI narrative: Patient is a 53-year-old female who presents to the emergency department with complaint of swelling to both lower extremities for last 3 to 4 days. She denies any falls. She does admit to similar episode of swelling in 2008 but is not aware of any congestive heart failure, DVTs or PEs. She is not called her primary care provider about this issue. She has a history of hypertension, diabetes and esophageal cancer undergoing radiation. No chemotherapy. Status post cholecystectomy. Allergic to tape and latex. Denies any pain. Denies any chest pain, pressure, tightness or shortness of breath. Radiation: non-radiation Exacerbating factors: eating (May be worse since she is eating more soup.) Associated symptoms: Deny chest pain, dyspnea, headache(s), rash or short of breath Review of Systems Const: Denies: fever Eyes: Denies: change in vision ENMT: Denies: dry mouth Card: Reports: edema; Denies: chest pain Resp: Denies: shortness of breath GI: Denies: abdominal pain : Denies: flank pain, difficulty urinating or painful urination Musc: Reports: extremity swelling; Denies: redness Skin/Breast: Reports: skin swelling; Denies: rash Neuro: Denies: headache or weakness in extremities Psych: Denies: anxiety Endo: Denies: excessive urination Fidel/Lymph: Denies: purpura All/Imm: Denies: hives PFSH ED PFSH: Statuses (acute, chronic, etc) shown below reflect problem list status as previously entered and may not be historically accurate Medical History (Updated 04/18/19 @ 18:18 by Bryson Chapman NP) Biliary colic (Acute) Cholecystitis (Acute) Cholelithiasis (Acute) GI bleeding (Acute) HTN (hypertension) (Acute) UTI (urinary tract infection) (Acute) Surgical History (Updated 03/22/19 @ 20:33 by Hannah Gutierrez) History of cholecystectomy (Acute) Social History Smoking and tobacco status: former smoker Physical Exam Const: COMMON NORMALS: no apparent distress and alert GENERAL APPEARANCE: cooperative ORIENTATION/CONSCIOUSNESS: Yes awake, Yes oriented to person, Yes oriented to place and Yes oriented to time HENMT: COMMON NORMALS: normocephalic HEAD & SCALP: normocephalic Eye: GENERAL EYE: normal appearance of both eyes Neck/C-Spine: CERVICAL SPINE: Yes cervical ROM normal Lymph: LYMPHATIC: no lymphadenopathy noted Chest: CHEST: Yes symmetrical chest wall rise Resp: COMMON NORMALS: normal respiratory effort Cardio: COMMON NORMALS: regular rate and regular rhythm RATE: regular rate RHYTHM: regular rhythm GI: COMMON NORMALS: soft to palpation INSPECTION: Yes normal to inspection AUSCULTATION: Yes normoactive bowel sounds PALPATION: Yes soft Back/Pelvis: THORACIC SPINE/UPPER BACK: Yes normal to inspection LUMBAR SPINE/LOWER BACK: Yes normal to inspection Extremity: GENERAL: Yes normal exam except as noted and Yes edema (2+) Neuro: SENSORIUM/ORIENTATION: Yes alert, Yes oriented to person, Yes oriented to place and Yes oriented to time Psych: COMMON NORMALS: speech normal APPEARANCE: Yes grossly normal ATTITUDE: Yes calm ACTIVITY/MOTOR BEHAVIOR: Yes appropriate eye contact SPEECH: Yes normal speech Skin: COMMON NORMALS: no rashes or lesions noted GENERAL SKIN EXAM: no rashes or lesions noted OTHER: small bruise to right 2nd toe. no laceration Course ED course: Patient has had incomplete work-up in the emergency room for bilateral lower extremity. She wishes to sign out AGAINST MEDICAL ADVICE. She states she will follow-up with her primary care provider. Vital Signs: Vital signs: Vital Signs Temperature 97.8 F 04/18/19 15:24 Pulse Rate 99 04/18/19 15:24 Respiratory Rate 18 04/18/19 15:24 Blood Pressure 114/80 04/18/19 15:24 Pulse Oximetry 99 04/18/19 15:24 MDM - General Adult MDM Narrative: Medical decision making narrative: 1754 patient with hypokalemia. 40 meq KCL ordered. Patient with UTI. 1814 patient informed of current status of lab and pending delta troponin. She states she cannot wait any longer she has a cousin that needs to get home. Patient wishes to sign out AGAINST MEDICAL ADVICE. Informed patient to follow- up with primary care provider for ongoing evaluation of her bilateral lower extremity swelling. Will provide antibiotics for discharge. Discussed risks of significant heart failure, ID, stroke, and disability without complete work-up with her history. Patient verbalized understanding. She wishes to sign out AGAINST MEDICAL ADVICE again. Patient has capacity for rational thought process and verbalized understanding of risk. Differential Diagnosis: Differential Diagnosis: DVT, low protein, peripheral edema, history of cancer, CHF, ID Lab Data: Labs: Lab Results 04/18/19 04/18/19 04/18/19 Range/Units 16:23 17:06 17:06 WBC 6.1 (4.0-10.0) 10^3/ uL RBC 4.02 L (4.1-5.3) 10^6/u L Hgb 11.3 L (11.5-15.3) g/dL Hct 36.3 L (37.0-47.0) % MCV 90.3 (81-99) fL MCH 28.1 (28.0-34.0) pg MCHC 31.1 (30.0-36.0) g/dL RDW 14.2 (12.1-15.1) % Plt Count 137 (130-400) 10^3/c mm MPV 10.6 H (7.4-10.4) fL Neut % (Auto) 88.4 % Lymph % (Auto) 2.3 % Arenac % (Auto) 7.9 % Eos % (Auto) 0.0 % Baso % (Auto) 0.2 % Neut # (Auto) 5.4 (1.8-7.7) 10^3/u L Lymph # (Auto) 0.1 L (0.8-4.8) 10^3/u L [place]ac # (Auto) 0.5 (0.2-0.9) 10^3/u L Eos # (Auto) 0.0 (0.0-0.8) 10^3/u L Baso # (Auto) 0.0 (0.0-0.1) 10^3/u L Nucleated RBC % (a uto) 0 % Nucleated RBCs # 0.0 /100WBC Sodium 138 (136-145) mmol/L Potassium 3.0 L (3.5-5.1) mmol/L Chloride 98 (98-107) mmol/L Carbon Dioxide 29 (22-29) mmol/L Anion Gap 14.0 (5-19) BUN 12 (6-20) mg/dL Creatinine 0.5 (0.5-0.9) mg/dL GFR Calculation 128.1 (90-130) mL/min Glucose 109 (65-115) mg/dL Calcium 8.8 (8.5-10.5) mg/dL Total Bilirubin 0.6 (0.15-1.2) mg/dL AST 8 (0-32) U/L ALT 7 (0-33) U/L Alkaline Phosphata se 87 (35-105) IU/L Troponin T Baselin e (0-10) ng/mL NT-Pro-B Natriuret Pep 551 H (0-125) pg/mL Total Protein 5.4 L (6.6-8.7) g/dL Albumin 2.2 L (3.5-5.2) g/dL Globulin 3.2 (1.3-4.6) g/dL Urine Color Yellow (Yellow) Urine Appearance Hazy A (CLEAR) Urine pH 7 (5-7) Ur Specific Gravit y 1.000 L (1.005-1.030) Urine Protein 1+ H (Negative) Urine Glucose (UA) Norm (Normal) Urine Ketones 1+ H (Negative) Urine Occult Blood 3+ H (Negative) Urine Nitrate Negative (Negative) Urine Bilirubin 1+ H (NEGATIVE) Urine Urobilinogen 4 H (Negative) mg/dL Ur Leukocyte Hanna ase 2+ H (Negative) Urine RBC 40-50 H (0-2) /hpf Urine WBC 55-80 H (0-5) /hpf Ur Squamous Epith Cells 10-15 H (0-5) Urine Bacteria 2+ H (NONE) Urine Mucus Trace 04/18/19 Range/Units 17:06 WBC (4.0-10.0) 10^3/ uL RBC (4.1-5.3) 10^6/u L Hgb (11.5-15.3) g/dL Hct (37.0-47.0) % MCV (81-99) fL MCH (28.0-34.0) pg MCHC (30.0-36.0) g/dL RDW (12.1-15.1) % Plt Count (130-400) 10^3/c mm MPV (7.4-10.4) fL Neut % (Auto) % Lymph % (Auto) % Arenac % (Auto) % Eos % (Auto) % Baso % (Auto) % Neut # (Auto) (1.8-7.7) 10^3/u L Lymph # (Auto) (0.8-4.8) 10^3/u L A[place]ac # (Auto) (0.2-0.9) 10^3/u L Eos # (Auto) (0.0-0.8) 10^3/u L Baso # (Auto) (0.0-0.1) 10^3/u L Nucleated RBC % (a uto) % Nucleated RBCs # /100WBC Sodium (136-145) mmol/L Potassium (3.5-5.1) mmol/L Chloride (98-107) mmol/L Carbon Dioxide (22-29) mmol/L Anion Gap (5-19) BUN (6-20) mg/dL Creatinine (0.5-0.9) mg/dL GFR Calculation (90-130) mL/min Glucose (65-115) mg/dL Calcium (8.5-10.5) mg/dL Total Bilirubin (0.15-1.2) mg/dL AST (0-32) U/L ALT (0-33) U/L Alkaline Phosphata se (35-105) IU/L Troponin T Baselin e 25 H (0-10) ng/mL NT-Pro-B Natriuret Pep (0-125) pg/mL Total Protein (6.6-8.7) g/dL Albumin (3.5-5.2) g/dL Globulin (1.3-4.6) g/dL Urine Color (Yellow) Urine Appearance (CLEAR) Urine pH (5-7) Ur Specific Gravit y (1.005-1.030) Urine Protein (Negative) Urine Glucose (UA) (Normal) Urine Ketones (Negative) Urine Occult Blood (Negative) Urine Nitrate (Negative) Urine Bilirubin (NEGATIVE) Urine Urobilinogen (Negative) mg/dL Ur Leukocyte Hanna ase (Negative) Urine RBC (0-2) /hpf Urine WBC (0-5) /hpf Ur Squamous Epith Cells (0-5) Urine Bacteria (NONE) Urine Mucus Discharge Plan Discharge Patient Disposition: Left Against Medical Advice Clinical Impression: Edema, peripheral, Acute hypokalemia Condition: Stable Prescriptions: New nitrofurantoin monohyd/m-cryst [Macrobid] 100 mg capsule 100 mg PO BID 7 Days Qty: 14 RF: 0 No Action oxycodone 15 mg tablet 15 mg PO Q4H RF: 0 famotidine 20 mg tablet 20 mg PO BID RF: 0 lisinopril 10 mg tablet 10 mg PO DAILY RF: 0 metoprolol succinate 25 mg tablet extended release 24 hr 12.5 mg PO DAILY RF: 0 ondansetron 4 mg tablet,disintegrating 4 mg translingual Q4H RF: 0 fluticasone propionate 50 mcg/actuation spray,suspension 1 spray INTRANASAL DAILY RF: 0 rosuvastatin 20 mg tablet 20 mg PO DAILY RF: 0 Zofran 4 mg tablet 4 mg PO Q8H PRN (Reason: nausea and vomiting) Qty: 30 RF: 0 Discharge Orders: Discharge Order (Routine); Ordered 04/18/19 Ordered By: Bryson Chapman Referrals: Antony Armstrong MD [Primary Care Provider] - Discharge Diet: Advance as tolerated Discharge Activity: Increase activity as tolerated Patient Instructions: Leg Edema (ED) Activity Restrictions/Additional Instructions: Please follow-up with your primary care provider for ongoing evaluation of your lower extremity swelling. Return the emergency room for worsening symptoms or concerns. Coding Level of Care Code ED Hospital Food Service Worker for Pancho Fwkeith Exam Problem Focused
[2019-04-18 17:17] LABS: Basophils % 0.2 %; Hematocrit 36.3 % (37.0-47.0); Hemoglobin 11.3 g/dL (11.5-15.3); Lymphocytes # 0.1 10^3/uL (0.8-4.8); Lymphocytes % 2.3 %; Mean Corpuscular HGB Conc 31.1 g/dL (30.0-36.0); Mean Corpuscular Hemoglobin 28.1 pg (28.0-34.0); Mean Corpuscular Volume 90.3 fL (81-99); Mean Platelet Volume 10.6 fL (7.4-10.4); Monocytes # 0.5 10^3/uL (0.2-0.9); Monocytes % 7.9 %; Neutrophils # 5.4 10^3/uL (1.8-7.7); Neutrophils % 88.4 %; Nucleated Red Blood Cells % 0 %; Platelet Count 137 10^3/cmm (130-400); Red Blood Count 4.02 10^6/uL (4.1-5.3); Red Cell Distribution Width 14.2 % (12.1-15.1); White Blood Count 6.1 10^3/uL (4.0-10.0)
[2019-04-18 17:33] LABS: Bilirubin Urine 1+ (NEGATIVE); Blood Urine 3+ (Negative); Glucose Urine UA Norm (Normal); Ketones Urine 1+ (Negative); Nitrate Urine Negative (Negative); Protein Urine 1+ (Negative); Urine Appearance Hazy (CLEAR); Urine Color Yellow (Yellow); Urobilinogen Urine 4 mg/dL (Negative); pH Urine 7 (5-7)
[2019-04-18 17:33] LABS: Troponin(5th) Baseline 25 ng/mL (0-10)
[2019-04-18 17:34] LABS: Add Urine Microscopic? YES; Leukocyte Esterase Urine 2+ (Negative)
[2019-04-18 17:39] LABS: Mucus Urine TRACE
[2019-04-18 17:41] LABS: RBC Urine 40-50 /hpf (0-2)
[2019-04-18 17:42] LABS: Alanine Aminotransferase 7 U/L (0-33); Albumin Level 2.2 g/dL (3.5-5.2); Alkaline Phosphatase 87 IU/L (35-105); Aspartate Amino Transferase 8 U/L (0-32); Blood Urea Nitrogen 12 mg/dL (6-20); Calcium 8.8 mg/dL (8.5-10.5); Carbon Dioxide 29 mmol/L (22-29); Chloride 98 mmol/L (98-107); Globulin 3.2 g/dL (1.3-4.6); Glomerular Filtration Rate 128.1 mL/min (90-130); Glucose 109 mg/dL (65-115); NT Pro B Type Natriuretic Pept 551 pg/mL (0-125); Sodium 138 mmol/L (136-145); Total Bilirubin 0.6 mg/dL (0.15-1.2); Total Protein 5.4 g/dL (6.6-8.7)
[2019-04-18 17:42] LABS: Bacteria Urine 2+; WBC Urine 55-80 /hpf (0-5)
[2019-04-18 17:43] LABS: Add Urine Culture? Yes
--- NOTE | 2019-04-18 18:28 | ECG_ITS ---
Measurements Intervals [place] Rate: 96 P: 11 NM: 128 QRS: 9 QRSD: 95 T: 10 QT: 332 QTc: 421 SINUS RHYTHM WITH OCCASIONAL SUPRAVENTRICULAR PREMATURE COMPLEXES NONSPECIFIC T-WAVE ABNORMALITY Compared to ECG 06/22/2016 03:39:09 T-wave abnormality now present Myocardial infarct finding no longer present Electronically Signed On 04-19-2019 0:22:37 [employer] TAPPER HELPER by Lena Rangel M.D. [id number]
--- NOTE | 2019-04-18 18:28 | ED_ITS ---
HPI - General Adult General: Chief complaint: General Medical Stated complaint: legs/feet swelling pain Time Seen by Provider: 04/18/19 15:59 History of Present Illness: Exacerbating factors: eating (May be worse since she is eating more soup.) PFSH ED PFSH: Statuses (acute, chronic, etc) shown below reflect problem list status as previously entered and may not be historically accurate Medical History (Updated 04/18/19 @ 18:28 by Bryson Chapman NP) Biliary colic (Acute) Cholecystitis (Acute) Cholelithiasis (Acute) GI bleeding (Acute) HTN (hypertension) (Acute) UTI (urinary tract infection) (Acute) Surgical History (Updated 03/22/19 @ 20:33 by Hannah Gutierrez) History of cholecystectomy (Acute) Social History Smoking and tobacco status: former smoker Course Vital Signs: Vital signs: Vital Signs Temperature 97.8 F 04/18/19 15:24 Pulse Rate 99 04/18/19 15:24 Respiratory Rate 18 04/18/19 15:24 Blood Pressure 114/80 04/18/19 15:24 Pulse Oximetry 99 04/18/19 15:24 MDM - General Adult Lab Data: Labs: Lab Results 04/18/19 04/18/19 04/18/19 Range/Units 16:23 17:06 17:06 WBC 6.1 (4.0-10.0) 10^3/ uL RBC 4.02 L (4.1-5.3) 10^6/u L Hgb 11.3 L (11.5-15.3) g/dL Hct 36.3 L (37.0-47.0) % MCV 90.3 (81-99) fL MCH 28.1 (28.0-34.0) pg MCHC 31.1 (30.0-36.0) g/dL RDW 14.2 (12.1-15.1) % Plt Count 137 (130-400) 10^3/c mm MPV 10.6 H (7.4-10.4) fL Neut % (Auto) 88.4 % Lymph % (Auto) 2.3 % Andrews % (Auto) 7.9 % Eos % (Auto) 0.0 % Baso % (Auto) 0.2 % Neut # (Auto) 5.4 (1.8-7.7) 10^3/u L Lymph # (Auto) 0.1 L (0.8-4.8) 10^3/u L Andrews # (Auto) 0.5 (0.2-0.9) 10^3/u L Eos # (Auto) 0.0 (0.0-0.8) 10^3/u L Baso # (Auto) 0.0 (0.0-0.1) 10^3/u L Nucleated RBC % (a uto) 0 % Nucleated RBCs # 0.0 /100WBC Sodium 138 (136-145) mmol/L Potassium 3.0 L (3.5-5.1) mmol/L Chloride 98 (98-107) mmol/L Carbon Dioxide 29 (22-29) mmol/L Anion Gap 14.0 (5-19) BUN 12 (6-20) mg/dL Creatinine 0.5 (0.5-0.9) mg/dL GFR Calculation 128.1 (90-130) mL/min Glucose 109 (65-115) mg/dL Calcium 8.8 (8.5-10.5) mg/dL Total Bilirubin 0.6 (0.15-1.2) mg/dL AST 8 (0-32) U/L ALT 7 (0-33) U/L Alkaline Phosphata se 87 (35-105) IU/L Troponin T Baselin e (0-10) ng/mL NT-Pro-B Natriuret Pep 551 H (0-125) pg/mL Total Protein 5.4 L (6.6-8.7) g/dL Albumin 2.2 L (3.5-5.2) g/dL Globulin 3.2 (1.3-4.6) g/dL Urine Color Yellow (Yellow) Urine Appearance Hazy A (CLEAR) Urine pH 7 (5-7) Ur Specific Gravit y 1.000 L (1.005-1.030) Urine Protein 1+ H (Negative) Urine Glucose (UA) Norm (Normal) Urine Ketones 1+ H (Negative) Urine Occult Blood 3+ H (Negative) Urine Nitrate Negative (Negative) Urine Bilirubin 1+ H (NEGATIVE) Urine Urobilinogen 4 H (Negative) mg/dL Ur Leukocyte Hanna ase 2+ H (Negative) Urine RBC 40-50 H (0-2) /hpf Urine WBC 55-80 H (0-5) /hpf Ur Squamous Epith Cells 10-15 H (0-5) Urine Bacteria 2+ H (NONE) Urine Mucus Trace 04/18/19 Range/Units 17:06 WBC (4.0-10.0) 10^3/ uL RBC (4.1-5.3) 10^6/u L Hgb (11.5-15.3) g/dL Hct (37.0-47.0) % MCV (81-99) fL MCH (28.0-34.0) pg MCHC (30.0-36.0) g/dL RDW (12.1-15.1) % Plt Count (130-400) 10^3/c mm MPV (7.4-10.4) fL Neut % (Auto) % Lymph % (Auto) % Andrews % (Auto) % Eos % (Auto) % Baso % (Auto) % Neut # (Auto) (1.8-7.7) 10^3/u L Lymph # (Auto) (0.8-4.8) 10^3/u L Andrews # (Auto) (0.2-0.9) 10^3/u L Eos # (Auto) (0.0-0.8) 10^3/u L Baso # (Auto) (0.0-0.1) 10^3/u L Nucleated RBC % (a uto) % Nucleated RBCs # /100WBC Sodium (136-145) mmol/L Potassium (3.5-5.1) mmol/L Chloride (98-107) mmol/L Carbon Dioxide (22-29) mmol/L Anion Gap (5-19) BUN (6-20) mg/dL Creatinine (0.5-0.9) mg/dL GFR Calculation (90-130) mL/min Glucose (65-115) mg/dL Calcium (8.5-10.5) mg/dL Total Bilirubin (0.15-1.2) mg/dL AST (0-32) U/L ALT (0-33) U/L Alkaline Phosphata se (35-105) IU/L Troponin T Baselin e 25 H (0-10) ng/mL NT-Pro-B Natriuret Pep (0-125) pg/mL Total Protein (6.6-8.7) g/dL Albumin (3.5-5.2) g/dL Globulin (1.3-4.6) g/dL Urine Color (Yellow) Urine Appearance (CLEAR) Urine pH (5-7) Ur Specific Gravit y (1.005-1.030) Urine Protein (Negative) Urine Glucose (UA) (Normal) Urine Ketones (Negative) Urine Occult Blood (Negative) Urine Nitrate (Negative) Urine Bilirubin (NEGATIVE) Urine Urobilinogen (Negative) mg/dL Ur Leukocyte Hanna ase (Negative) Urine RBC (0-2) /hpf Urine WBC (0-5) /hpf Ur Squamous Epith Cells (0-5) Urine Bacteria (NONE) Urine Mucus Discharge Plan Discharge Patient Disposition: Left Against Medical Advice Clinical Impression: Edema, peripheral, Acute hypokalemia UTI (urinary tract infection) Qualifiers: Urinary tract infection type: acute cystitis Hematuria presence: with hematuria Qualified Code(s): N30.01 - Acute cystitis with hematuria Condition: Stable Prescriptions: New Macrobid 100 mg capsule 100 mg PO BID 7 Days Qty: 14 RF: 0 No Action oxycodone 15 mg tablet 15 mg PO Q4H RF: 0 famotidine 20 mg tablet 20 mg PO BID RF: 0 lisinopril 10 mg tablet 10 mg PO DAILY RF: 0 metoprolol succinate 25 mg tablet extended release 24 hr 12.5 mg PO DAILY RF: 0 ondansetron 4 mg tablet,disintegrating 4 mg translingual Q4H RF: 0 fluticasone propionate 50 mcg/actuation spray,suspension 1 spray INTRANASAL DAILY RF: 0 rosuvastatin 20 mg tablet 20 mg PO DAILY RF: 0 Zofran 4 mg tablet 4 mg PO Q8H PRN (Reason: nausea and vomiting) Qty: 30 RF: 0 Discharge Orders: Discharge Order (Routine); Ordered 04/18/19 Ordered By: Bryson Chapman Referrals: Antony Armstrong MD [Primary Care Provider] - Discharge Diet: Advance as tolerated Discharge Activity: Increase activity as tolerated Patient Instructions: Leg Edema (ED) Activity Restrictions/Additional Instructions: Please follow-up with your primary care provider for ongoing evaluation of your lower extremity swelling. Return the emergency room for worsening symptoms or concerns. Coding Level of Care Code ED Heavy Duty Diesel Mechanic for Pancho Alves
[2019-04-18 18:29] VITALS: BP 122/69; PULSE 103; RESP 18; O2SAT 97
== END 2019-04-18 18:31 | disposition left against medical advice (07) ==
PROVIDERS: Emergency Provider Nurse Practitioner; Family Provider Family Medicine; PCP Family Medicine
DX: R60.0 Localized edema (principal); E87.6 Hypokalemia; I10 Essential (primary) hypertension; Z87.891 Personal history of nicotine dependence; N30.01 Acute cystitis with hematuria; Z87.440 Personal history of urinary (tract) infections; Z53.21 Procedure and treatment not carried out due to patient leaving prior to being seen by health care provider
CPT/HCPCS: 36415; 71045; 80053; 81001; 83880; 84484; 85025; 87077; 87086; 87186; 93005; 93970; 99282; 99284; A9270

== ENCOUNTER 2019-04-23 13:37 | Outpatient (CLI) | payer MEDICARE, SELFPAY ==
--- NOTE | 2019-04-23 | XR_ITS ---
WS: [id number] ABDOMEN SERIES Supine and upright views of the abdomen CLINICAL INFORMATION: CONSTIPATION ACUTE COMPARISON: None. FINDINGS: Lumbar scoliosis convex left. 5 nonrib-bearing lumbar vertebral bodies. Normal caliber small and larg e bowel. No evidence of high-grade obstruction. No air-fluid levels. No free on the upright view. XR/XR abdomen min 2V [id number] IMPRESSION: 1. Lumbar scoliosis convex left. 2. Normal bowel gas pattern.
== END 2019-04-23 13:38 | disposition home or self-care (01) ==
LOC: RADOUTREAD 04-24 07:43
PROVIDERS: Family Provider Family Medicine; PCP Family Medicine; Visit Provider Family Medicine
DX: Z76.89 Persons encountering health services in other specified circumstances (principal)

== ENCOUNTER 2019-04-23 14:41 | Outpatient (CLI) | payer MEDICARE, SELFPAY ==
--- NOTE | 2019-04-23 14:51 | CTR_ITS ---
PROCEDURE INFORMATION: Exam: CT Abdomen And Pelvis With Contrast Exam date and time: 04/23/2019 3:01 PM Age: 53 years old Clinical indication: Abdominal pain; Prior surgery; Surgery type: Gb; Additional info: Abd pain TECHNIQUE: Imaging protocol: Computed tomography of the abdomen and pelvis with intravenous contrast. Total DLP: 624.42 mGy-cm Radiation optimization: All CT scans at this facility use at least one of these dose optimization techniques: automated exposure control; mA and/or kV adjustment per patient size (includes targeted exams where dose is matched to clinical indication); or iterative reconstruction. Contrast material: OMNI 300; Contrast volume: 95 ml; Contrast route: IV; COMPARISON: CT Chest/Abdomen/Pelvis w IV* 08/26/2018 3:21 PM FINDINGS: Pleural space: New onset minimal left pleural fluid collection. Liver: Normal. No mass. Gallbladder and bile ducts: Stable cholecystectomy. Pancreas: Normal. No ductal dilation. Spleen: Normal. No splenomegaly. Adrenals: Interval appearance right adrenal hyperplasia versus adrenal metastasis measuring up to 1.7 cm in diameter. Correlation with non-emergent MRI is recommended to rule out malignant neoplasm versus benign adrenal adenoma. Kidneys and ureters: Stable bilateral parapelvic cysts. Stomach and bowel: Unremarkable. No obstruction. No mucosal thickening. Appendix: No evidence of appendicitis. Intraperitoneal space: Interval appearance of mild right upper quadrant fluid between the liver and right hemidiaphragm, right pericolic fluid and free fluid in the pelvis. Vasculature: Unremarkable. No abdominal aortic aneurysm. Lymph nodes: Unremarkable. No enlarged lymph nodes. Bladder: Unremarkable as visualized. Reproductive: Unremarkable as visualized. Bones/joints: Grade 1 anterior non-spondylitic spondylolisthesis of L4 on L5 with central spinal stenosis and prominent facet degenerative changes. Moderate multilevel spine degenerative changes including degenerative disc disease, spondylosis and facet degenerative changes. Soft tissues: Continues significant asymmetry in the size of the right breast versus left breast which appears stable. Other findings: Levoscoliosis. CT/CT abdomen pelvis w con* [id number] IMPRESSION: 1. Interval appearance right adrenal hyperplasia versus adrenal metastasis measuring up to 1.7 cm in diameter. Correlation with non-emergent MRI is recommended to rule out malignant neoplasm versus benign adrenal adenoma. 2. Stable cholecystectomy. 3. Interval appearance of mild right upper quadrant fluid between the liver and right hemidiaphragm, right pericolic fluid and free fluid in the pelvis. 4. New onset minimal left pleural fluid collection. Radiation Dose CTDIVOL = (mGy): DLP = 624.42 (mGy-cm)
[2019-04-23] MEDS: iohexol 300 mg/mL 100 mL Btl 95 ML IV (17:22)
[2019-04-23] MEDS: iohexol 300 mg/mL 50 mL Btl 25 ML IV (17:25)
== END 2019-04-23 14:42 | disposition home or self-care (01) ==
LOC: RAD 14:48
PROVIDERS: Family Provider Family Medicine; PCP Family Medicine; Visit Provider Family Medicine
DX: R10.9 Unspecified abdominal pain (principal)
CPT/HCPCS: 74177; Q9967

== ENCOUNTER 2019-06-06 05:05 | Emergency (ER) | payer MEDICARE, SELFPAY ==
--- NOTE | 2019-06-06 05:07 | XRR_ITS ---
PROCEDURE INFORMATION: Exam: XR Chest, 1 View Exam date and time: 06/06/2019 5:14 AM Age: 53 years old Clinical indication: Chest pain; Type not specified; Additional info: Cp TECHNIQUE: Imaging protocol: XR of the chest Views: 1 view. COMPARISON: CR XR chest 1V portable [id number] 04/18/2019 4:59 PM FINDINGS: Lungs: Slightly greater lucency of the smaller left hemithorax as before. Lungs still clear. Pleural space: Still no apparent pleural fluid or pneumothorax. Heart/Mediastinum: Still no cardiomegaly. Bones/joints: Interval prominent narrowing of the left subacromial space. Less narrowing of the right subacromial space than before. No apparent acute bony disease. XR/XR chest 1V portable [id number] IMPRESSION: No acute findings. Continued slightly greater lucency of the smaller left hemithorax raising the possibility of chest wall asymmetry.
--- NOTE | 2019-06-06 05:08 | ECG_ITS ---
Measurements Intervals [place] Rate: 67 P: 66 LA: 143 QRS: 53 QRSD: 94 T: 125 QT: 424 QTc: 450 SINUS RHYTHM WITH SINUS ARRHYTHMIA NONSPECIFIC ST & T-WAVE ABNORMALITY Compared to ECG 04/18/2019 17:14:42 No significant changes Electronically Signed On 06-06-2019 9:37:16 CDT by Katarzyna Henriquez M.D. [id number]
[2019-06-06 05:12] VITALS: BP 132/99; PULSE 66; RESP 16; TEMP 36.8; O2SAT 97
--- NOTE | 2019-06-06 05:14 | W.ED.CHESTPA ---
HPI - Chest Pain General: Chief Complaint: Chest Pain Stated Complaint: CP Time Seen by Provider: 06/06/19 05:07 History of Present Illness: HPI narrative: 53-year-old female with no history of coronary artery disease. She presents with chest pain after waking up and going to the bathroom this morning. She states it is 10 out of 10. Sharp to the left chest wall. Somewhat reproducible. She says she has been coughing but not running a fever and not producing any sputum. She also says she has had some lower extremity swelling. This is bilateral. MD complaint: chest pain Onset (ago): minute(s) Timing of current episode: constant Prior episodes: Yes Onset: during rest Pain location: left chest Pain radiation: none Severity: severe Quality: sharp Relieving factors: nothing Exacerbating factors: nothing Associated symptoms: Deny dyspnea, fever(s), nausea, palpitations or vomiting Review of Systems Const: Denies: fever or chills Eyes: Denies: change in vision or blurry vision ENMT: Denies: painful swallowing, nose bleeds, post nasal drip or facial/sinus pain Card: Reports: chest pain; Denies: palpitations, irregular heart rhythm, edema, swelling of feet/ankles or shortness of breath when lying down Resp: Reports: non-productive cough; Denies: shortness of breath, productive cough or wheezing GI: Denies: nausea or vomiting : Denies: painful urination or blood in urine Musc: Denies: back pain, redness or joint warmth Skin/Breast: Denies: rash, itching or redness Neuro: Denies: headache, dizziness, vertigo, confusion or seizure-like activity Psych: Denies: anxiety PFSH ED PFSH: Medical History (Updated 06/06/19 @ 06:20 by Adrien Foster DO) Biliary colic Cholecystitis Cholelithiasis GI bleeding HTN (hypertension) UTI (urinary tract infection) Surgical History (Updated 03/22/19 @ 20:33 by Hannah Gutierrez) History of cholecystectomy Social History Smoking and tobacco status: never smoked Physical Exam Const: GENERAL APPEARANCE: well developed ORIENTATION/CONSCIOUSNESS: Yes oriented to person, Yes oriented to place and Yes oriented to time HENMT: COMMON NORMALS: normocephalic, external ears normal and external nose normal HEAD & SCALP: normocephalic FACE & SINUS: normal facial exam NOSE: external nose normal and no nasal discharge EXTERNAL EAR: Yes external ears normal MOUTH: tongue normal Eye: COMMON NORMALS: PERRL, EOMs intact bilaterally and conjunctivae normal EYELID: eyelids normal CONJUNCTIVA: Yes conjunctivae normal PUPIL: Yes PERRL Neck/C-Spine: COMMON NORMALS: full ROM GENERAL: No tracheal deviation Chest: COMMONS NORMALS: inspection of chest normal CHEST: Yes tenderness Resp: COMMON NORMALS: clear to auscultation bilaterally EFFORT & INSPECTION: No tachypneic, No respiratory distress, No retractions, No uses accessory muscles and No tracheal deviation AUSCULTATION: clear to auscultation bilaterally, no rhonchi, no wheezes and lung sounds not diminished Cardio: COMMON NORMALS: regular rate and regular rhythm RATE: regular rate RHYTHM: regular rhythm HEART SOUNDS: no murmurs PERIPHERAL PULSES: radial pulses present GI: INSPECTION: No abdominal distension AUSCULTATION: No hyperactive bowel sounds and No hypoactive bowel sounds PALPATION: No guarding and No rigid PERCUSSION: no dullness to percussion and no tympanic to percussion Neuro: SENSORIUM/ORIENTATION: Yes oriented to person, Yes oriented to place and Yes oriented to time Psych: COMMON NORMALS: mental status grossly normal Skin: COMMON NORMALS: no rashes or lesions noted GENERAL SKIN EXAM: no rashes or lesions noted Course Vital Signs: Vital signs: Vital Signs Temperature 98.3 F 06/06/19 05:12 Pulse Rate 72 06/06/19 06:00 Respiratory Rate 14 06/06/19 06:00 Blood Pressure 123/85 06/06/19 06:00 Pulse Oximetry 97 06/06/19 06:00 MDM - Chest Pain MDM Narrative: Medical decision making narrative: 53-year-old female with no prior history of coronary disease. Somewhat reproducible left-sided chest pain. Chest x-ray is essentially negative. EKG shows no acute ST changes with a normal axis. The one from the field was normal. Laboratory is benign. Her troponin is 28 which is unchanged from her prior visit a couple weeks ago. Her other laboratory is benign. She will be allowed home. Lab Data: Labs: Lab Results 06/06/19 06/06/19 06/06/19 Range/Units 05:20 05:20 05:20 WBC 6.2 (4.0-10.0) 10^3/ uL RBC 4.01 L (4.1-5.3) 10^6/u L Hgb 11.3 L (11.5-15.3) g/dL Hct 36.5 L (37.0-47.0) % MCV 91.0 (81-99) fL MCH 28.2 (28.0-34.0) pg MCHC 31.0 (30.0-36.0) g/dL RDW 16.3 H (12.1-15.1) % Plt Count 281 (130-400) 10^3/c mm MPV 9.9 (7.4-10.4) fL Neut % (Auto) 70.7 % Lymph % (Auto) 22.3 % [place] % (Auto) 6.0 % Eos % (Auto) 0.2 % Baso % (Auto) 0.5 % Neut # (Auto) 4.4 (1.8-7.7) 10^3/u L Lymph # (Auto) 1.4 (0.8-4.8) 10^3/u L [place] # (Auto) 0.4 (0.2-0.9) 10^3/u L Eos # (Auto) 0.0 (0.0-0.8) 10^3/u L Baso # (Auto) 0.0 (0.0-0.1) 10^3/u L Nucleated RBC % (a uto) 0 % Nucleated RBCs # 0.0 /100WBC Sodium 139 (136-145) mmol/L Potassium 4.4 (3.5-5.1) mmol/L Chloride 102 (98-107) mmol/L Carbon Dioxide 24 (22-29) mmol/L Anion Gap 17.4 (5-19) BUN 14 (6-20) mg/dL Creatinine 0.6 (0.5-0.9) mg/dL GFR Calculation 103.8 (90-130) mL/min Glucose 85 (65-115) mg/dL Calculated Osmolal ity 283 L (285-295) mOsm/k g Calcium 9.9 (8.5-10.5) mg/dL Total Bilirubin 0.8 (0.15-1.2) mg/dL AST 16 (0-32) U/L ALT 12 (0-33) U/L Alkaline Phosphata se 90 (35-105) IU/L Creatine Kinase 74 (26-192) U/L Troponin T Baselin e 28 H (0-10) ng/mL NT-Pro-B Natriuret Pep 657 H (0-125) pg/mL Total Protein 6.6 (6.6-8.7) g/dL Albumin 3.6 (3.5-5.2) g/dL Globulin 3.0 (1.3-4.6) g/dL Discharge Plan Discharge Patient Disposition: Home, Self-Care Clinical Impression: Chest pain Qualifiers: Chest pain type: unspecified Qualified Code(s): R07.9 - Chest pain, unspecified Condition: Stable Prescriptions: No Action oxycodone 15 mg tablet 15 mg PO Q4H RF: 0 famotidine 20 mg tablet 20 mg PO BID RF: 0 lisinopril 10 mg tablet 10 mg PO DAILY RF: 0 metoprolol succinate 25 mg tablet extended release 24 hr 12.5 mg PO DAILY RF: 0 ondansetron 4 mg tablet,disintegrating 4 mg translingual Q4H RF: 0 fluticasone propionate 50 mcg/actuation spray,suspension 1 spray INTRANASAL DAILY RF: 0 rosuvastatin 20 mg tablet 20 mg PO DAILY RF: 0 Zofran 4 mg tablet 4 mg PO Q8H PRN (Reason: nausea and vomiting) Qty: 30 RF: 0 Discharge Orders: Discharge Order (Routine); Ordered 06/06/19 Ordered By: Adrien Foster Referrals: Antony Armstrong MD [Primary Care Provider] - 4-7 days Discharge Diet: Advance as tolerated Discharge Activity: Increase activity as tolerated Patient Instructions: Chest Pain (ED) Activity Restrictions/Additional Instructions: Return for worsening shortness of breath, fever greater than 100, cough with sputum production, worsening chest pain, other concerning symptoms. 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
[2019-06-06 05:27] LABS: Basophils % 0.5 %; Eosinophils % 0.2 %; Hematocrit 36.5 % (37.0-47.0); Hemoglobin 11.3 g/dL (11.5-15.3); Lymphocytes # 1.4 10^3/uL (0.8-4.8); Lymphocytes % 22.3 %; Mean Corpuscular Hemoglobin 28.2 pg (28.0-34.0); Mean Platelet Volume 9.9 fL (7.4-10.4); Monocytes # 0.4 10^3/uL (0.2-0.9); Neutrophils # 4.4 10^3/uL (1.8-7.7); Neutrophils % 70.7 %; Nucleated Red Blood Cells % 0 %; Platelet Count 281 10^3/cmm (130-400); Red Blood Count 4.01 10^6/uL (4.1-5.3); Red Cell Distribution Width 16.3 % (12.1-15.1); White Blood Count 6.2 10^3/uL (4.0-10.0)
[2019-06-06] MEDS: aspirin 81 mg Chew Tablet 324 MG PO (05:27)
[2019-06-06 05:31] VITALS: BP 132/99; PULSE 74; RESP 19
[2019-06-06] MEDS: lidocaine 2% viscous 15 ML, aluminum-mag hydrox-simethicon 30 ML, sucralfate oral liq 1 GM PO (05:34)
[2019-06-06] MEDS: ondansetron 2 mg/ML SDV 2 mL 4 MG IVP (05:35)
[2019-06-06 05:36] VITALS: RESP 18; O2SAT 98
[2019-06-06] MEDS: morphine 4 mg/mL SDV 1 mL IVP (05:36)
[2019-06-06 05:41] LABS: Troponin(5th) Baseline 28 ng/mL (0-10)
[2019-06-06 05:49] LABS: Alanine Aminotransferase 12 U/L (0-33); Albumin Level 3.6 g/dL (3.5-5.2); Alkaline Phosphatase 90 IU/L (35-105); Anion Gap 17.4 (5-19); Aspartate Amino Transferase 16 U/L (0-32); Blood Urea Nitrogen 14 mg/dL (6-20); Calcium 9.9 mg/dL (8.5-10.5); Carbon Dioxide 24 mmol/L (22-29); Chloride 102 mmol/L (98-107); Creatine Phosphokinase 74 U/L (26-192); Glomerular Filtration Rate 103.8 mL/min (90-130); Glucose 85 mg/dL (65-115); NT Pro B Type Natriuretic Pept 657 pg/mL (0-125); Osmolality Calculated 283 mOsm/kg (285-295); Potassium 4.4 mmol/L (3.5-5.1); Sodium 139 mmol/L (136-145); Total Bilirubin 0.8 mg/dL (0.15-1.2); Total Protein 6.6 g/dL (6.6-8.7)
[2019-06-06 06:00] VITALS: BP 123/85; PULSE 72; RESP 14; O2SAT 97
[2019-06-06 06:35] VITALS: BP 123/85; PULSE 90; RESP 18; O2SAT 100
== END 2019-06-06 06:37 | disposition home or self-care (01) ==
PROVIDERS: Emergency Provider Emergency Medicine; Family Provider Family Medicine; PCP Family Medicine
DX: R07.9 Chest pain, unspecified (principal); I10 Essential (primary) hypertension
CPT/HCPCS: 12345; 71045; 80053; 82550; 83880; 84484; 85025; 93005; 96374; 96375; 99283; 99284; J2270; J2405

== ENCOUNTER 2019-06-06 22:27 | Emergency (ER) | payer MEDICARE, SELFPAY ==
[2019-06-06 22:36] VITALS: BMI 21.9
[2019-06-06 22:42] VITALS: BP 119/86; PULSE 104; RESP 18; TEMP 36.6; O2SAT 99
--- NOTE | 2019-06-06 23:38 | W.ED.WOUNDLC ---
HPI - Wound/Laceration General: Chief Complaint: Wound/Laceration Stated Complaint: finger lac Time Seen by Provider: 06/06/19 22:51 History of Present Illness: Onset (ago): hour(s) Extremity Location: Left: hand Place: home Patient tetanus UTD: Yes Context: accidental Associated symptoms: Reports no associated symptoms; Denies nausea or vomiting Review of Systems Resp: Denies: shortness of breath or productive cough GI: Denies: abdominal pain, nausea or vomiting : Denies: difficulty urinating Neuro: Denies: numbness in extremities or weakness in extremities PFSH ED PFSH: Medical History (Updated 06/06/19 @ 23:44 by Adrien Foster DO) Biliary colic Cholecystitis Cholelithiasis GI bleeding HTN (hypertension) UTI (urinary tract infection) Surgical History (Updated 03/22/19 @ 20:33 by Hannah Gutierrez) History of cholecystectomy Social History Smoking and tobacco status: never smoked Physical Exam Const: COMMON NORMALS: no apparent distress and oriented x3 HENMT: COMMON NORMALS: normocephalic HEAD & SCALP: normocephalic FACE & SINUS: normal facial exam Chest: COMMONS NORMALS: inspection of chest normal Resp: COMMON NORMALS: normal respiratory effort, no retractions and clear to auscultation bilaterally AUSCULTATION: clear to auscultation bilaterally Cardio: COMMON NORMALS: regular rate and regular rhythm RATE: regular rate RHYTHM: regular rhythm HEART SOUNDS: no murmurs GI: COMMON NORMALS: soft to palpation PALPATION: Yes soft Extremity: NARRATIVE EXTREMITY EXAM: 0.5 cm laceration left index finger clean Neuro: COMMON NORMALS: oriented x3 Procedures Laceration Laceration 1: Site: hand (Left index finger) Side (If applicable): left Size (cm): 0.5 Description: linear Depth: simple, single layer Pre-repair: wound explored and irrigated extensively Skin layer closed with: other (Skin adhesive) Course Vital Signs: Vital signs: Vital Signs Temperature 97.8 F 06/06/19 22:42 Pulse Rate 104 H 06/06/19 22:42 Respiratory Rate 18 06/06/19 22:42 Blood Pressure 119/86 06/06/19 22:42 Pulse Oximetry 99 06/06/19 22:42 Discharge Plan Discharge Patient Disposition: Home, Self-Care Clinical Impression: Laceration Condition: Stable Prescriptions: No Action oxycodone 15 mg tablet 15 mg PO Q4H RF: 0 famotidine 20 mg tablet 20 mg PO BID RF: 0 lisinopril 10 mg tablet 10 mg PO DAILY RF: 0 metoprolol succinate 25 mg tablet extended release 24 hr 12.5 mg PO DAILY RF: 0 ondansetron 4 mg tablet,disintegrating 4 mg translingual Q4H RF: 0 fluticasone propionate 50 mcg/actuation spray,suspension 1 spray INTRANASAL DAILY RF: 0 rosuvastatin 20 mg tablet 20 mg PO DAILY RF: 0 Zofran 4 mg tablet 4 mg PO Q8H PRN (Reason: nausea and vomiting) Qty: 30 RF: 0 Discharge Orders: Discharge Order (Routine); Ordered 06/06/19 Ordered By: Adrien Foster Referrals: Antony Armstrong MD [Primary Care Provider] - 4-7 days Discharge Diet: Usual diet Discharge Activity: Increase activity as tolerated Patient Instructions: Laceration (ED), Skin Adhesive Care (ED) Discharge Date/Time: 06/06/19 23:50 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
== END 2019-06-06 23:50 | disposition home or self-care (01) ==
PROVIDERS: Emergency Provider Emergency Medicine; Family Provider Family Medicine; PCP Family Medicine
DX: S61.211A Laceration without foreign body of left index finger without damage to nail, initial encounter (principal); I10 Essential (primary) hypertension; X58.XXXA Exposure to other specified factors, initial encounter
CPT/HCPCS: 12001; 12345; 99281; 99282

== ENCOUNTER 2019-06-30 10:36 | Emergency (ER) | payer MEDICARE, SELFPAY ==
[2019-06-30 10:41] VITALS: BMI 21.6
[2019-06-30 10:43] VITALS: BP 135/100; PULSE 113; RESP 18; TEMP 36.8; O2SAT 96
--- NOTE | 2019-06-30 11:01 | ED_ITS ---
HPI - General Adult General: Chief complaint: General Medical Stated complaint: N/V/D Time Seen by Provider: 06/30/19 10:59 Source: patient Mode of arrival: ambulatory Limitations: no limitations History of Present Illness: HPI narrative: 53-year-old female comes in today for complaints of diarrhea for the last 2 days. Patient also has a history of persistent nausea and vomiting for several weeks now as she describes. Patient does have esophageal cancer and has been under treatment with Dr. Hilliard for the last year. Patient denies any fever. Patient has a history of diabetes but has lost a lot of weight since cancer and no longer is classified as diabetic. Patient is on some blood pressure medication routinely but denies any other chronic medical problems. Patient has also had some swelling in bilateral lower extremities. Associated symptoms: Reports nausea and vomiting Review of Systems General: Reports: 10 or more systems reviewed and unremarkable except in HPI and below GI: Reports: nausea, vomiting and diarrhea PFS ED PFSH: Medical History (Updated 06/30/19 @ 14:16 by ARLENE GauthierP) Biliary colic Cholecystitis Cholelithiasis GI bleeding HTN (hypertension) UTI (urinary tract infection) Surgical History (Updated 03/22/19 @ 20:33 by Hannah Gutierrez) History of cholecystectomy Social History Smoking and tobacco status: never smoked Physical Exam Const: COMMON NORMALS: no apparent distress and oriented x3 GENERAL APPEARANCE: cooperative HENMT: COMMON NORMALS: normocephalic, TM's normal bilaterally and external nose normal HEAD & SCALP: normal to inspection and normocephalic NOSE: external nose normal TYMPANIC MEMBRANE: TM's normal bilaterally MOUTH: oral and palatal mucosa normal THROAT: posterior oropharynx normal Eye: GENERAL EYE: normal appearance of both eyes Neck/C-Spine: COMMON NORMALS: full ROM Lymph: LYMPHATIC: no lymphadenopathy noted Chest: COMMONS NORMALS: inspection of chest normal Resp: COMMON NORMALS: normal respiratory effort EFFORT & INSPECTION: Yes able to speak in complete sentences Cardio: COMMON NORMALS: regular rate and regular rhythm RATE: regular rate RHYTHM: regular rhythm GI: COMMON NORMALS: normal to inspection, nondistended, normoactive bowel sounds (Abdomen is soft and nontender. Bowel sounds are present throughout.) and non-tender : COMMON NORMALS: Yes no CVA tenderness BLADDER/KIDNEY EXAM: Yes no CVA tenderness Back/Pelvis: COMMON NORMALS: no CVA tenderness and thoracic and lumbar spine normal to inspection Extremity: NARRATIVE EXTREMITY EXAM: Bilateral lower extremities have's some mild edema from about the mid lower leg down to the feet. Neuro: COMMON NORMALS: oriented x3 and moves all extremities Psych: COMMON NORMALS: mental status grossly normal and cooperative Skin: COMMON NORMALS: no rashes or lesions noted GENERAL SKIN EXAM: no rashes or lesions noted Course Vital Signs: Vital signs: Vital Signs Temperature 98.2 F 06/30/19 10:43 Pulse Rate 113 H 06/30/19 10:43 Respiratory Rate 18 06/30/19 10:43 Blood Pressure 135/100 06/30/19 10:43 Pulse Oximetry 96 06/30/19 10:43 MDM - General Adult MDM Narrative: Medical decision making narrative: Patient comes in today for complaints of diarrhea stool and nausea. Patient reports nausea and vomiting has been chronic in nature. Patient does report that the diarrhea started last night though. On exam patient's abdomen soft nontender to palpation. Bowel sounds are present and normal. Skin is warm and dry color is pink. Differential diagnosis includes but not limited to esophageal rupture, bowel obstruction, constipation, fecal impaction, complication secondary to metastatic cancer. Laboratory values were normal except for some mild anemia noted on blood count. CT scan of the chest abdomen and pelvis noted stool in the bowel and a collection of stool in the rectum. CT also noted some interval changes in the overall CT scan. Reviewed exam with patient recommendations for review of CT by primary care or oncologist. Offered to give patient enemas to help evacuate the stool from the rectum patient at this time deferred reported that she would do this at home. Recommended milk of magnesia twice a day for constipation. Patient reported understanding of care plan and need for follow- up. Lab Data: Labs: Lab Results 06/30/19 06/30/19 06/30/19 Range/Units 11:00 11:18 11:18 WBC 8.4 (4.0-10.0) 10^3/ uL RBC 3.83 L (4.1-5.3) 10^6/u L Hgb 10.7 L (11.5-15.3) g/dL Hct 34.0 L (37.0-47.0) % MCV 88.8 (81-99) fL MCH 27.9 L (28.0-34.0) pg MCHC 31.5 (30.0-36.0) g/dL RDW 14.9 (12.1-15.1) % Plt Count 322 (130-400) 10^3/c mm MPV 9.6 (7.4-10.4) fL Neut % (Auto) 84.1 % Lymph % (Auto) 10.1 % [place] % (Auto) 5.1 % Eos % (Auto) 0.0 % Baso % (Auto) 0.2 % Neut # (Auto) 7.1 (1.8-7.7) 10^3/u L Lymph # (Auto) 0.9 (0.8-4.8) 10^3/u L [place] # (Auto) 0.4 (0.2-0.9) 10^3/u L Eos # (Auto) 0.0 (0.0-0.8) 10^3/u L Baso # (Auto) 0.0 (0.0-0.1) 10^3/u L Nucleated RBC % (a uto) 0 % Nucleated RBCs # 0.0 /100WBC Sodium 139 (136-145) mmol/L Potassium 3.8 (3.5-5.1) mmol/L Chloride 100 (98-107) mmol/L Carbon Dioxide 25 (22-29) mmol/L Anion Gap 17.8 (5-19) BUN 17 (6-20) mg/dL Creatinine 0.6 (0.5-0.9) mg/dL GFR Calculation 103.8 (90-130) mL/min Glucose 81 (65-115) mg/dL Calculated Osmolal ity 283 L (285-295) mOsm/k g Lactate (0.5-2.2) mmol/L Calcium 9.4 (8.5-10.5) mg/dL Magnesium 1.7 (1.7-2.3) mg/dL Total Bilirubin 0.6 (0.15-1.2) mg/dL AST 14 (0-32) U/L ALT 9 (0-33) U/L Alkaline Phosphata se 77 (35-105) IU/L Total Protein 6.4 L (6.6-8.7) g/dL Albumin 3.1 L (3.5-5.2) g/dL Globulin 3.3 (1.3-4.6) g/dL Lipase 8 L (13-60) U/L Urine Color Zaynab (Yellow) Urine Appearance Cloudy (CLEAR) Urine pH 5.0 (5-7) Ur Specific Gravit y 1.020 (1.005-1.030) Urine Protein 1+ H (Negative) Urine Glucose (UA) Norm (Normal) Urine Ketones 1+ H (Negative) Urine Blood Neg (Negative) Urine Nitrate Positive H (Negative) Urine Bilirubin 1+ H (NEGATIVE) Urine Urobilinogen 8 H (Negative) mg/dL Ur Leukocyte Hanna ase 2+ H (Negative) Urine RBC None (0-2) /hpf Urine WBC 55-80 H (0-5) /hpf Ur Squamous Epith Cells 5-10 H (0-5) Urine Bacteria 2+ H (NONE) Urine Mucus Trace 06/30/19 Range/Units 11:34 WBC (4.0-10.0) 10^3/ uL RBC (4.1-5.3) 10^6/u L Hgb (11.5-15.3) g/dL Hct (37.0-47.0) % MCV (81-99) fL MCH (28.0-34.0) pg MCHC (30.0-36.0) g/dL RDW (12.1-15.1) % Plt Count (130-400) 10^3/c mm MPV (7.4-10.4) fL Neut % (Auto) % Lymph % (Auto) % [place] % (Auto) % Eos % (Auto) % Baso % (Auto) % Neut # (Auto) (1.8-7.7) 10^3/u L Lymph # (Auto) (0.8-4.8) 10^3/u L Harris # (Auto) (0.2-0.9) 10^3/u L Eos # (Auto) (0.0-0.8) 10^3/u L Baso # (Auto) (0.0-0.1) 10^3/u L Nucleated RBC % (a uto) % Nucleated RBCs # /100WBC Sodium (136-145) mmol/L Potassium (3.5-5.1) mmol/L Chloride (98-107) mmol/L Carbon Dioxide (22-29) mmol/L Anion Gap (5-19) BUN (6-20) mg/dL Creatinine (0.5-0.9) mg/dL GFR Calculation (90-130) mL/min Glucose (65-115) mg/dL Calculated Osmolal ity (285-295) mOsm/k g Lactate 0.9 (0.5-2.2) mmol/L Calcium (8.5-10.5) mg/dL Magnesium (1.7-2.3) mg/dL Total Bilirubin (0.15-1.2) mg/dL AST (0-32) U/L ALT (0-33) U/L Alkaline Phosphata se (35-105) IU/L Total Protein (6.6-8.7) g/dL Albumin (3.5-5.2) g/dL Globulin (1.3-4.6) g/dL Lipase (13-60) U/L Urine Color (Yellow) Urine Appearance (CLEAR) Urine pH (5-7) Ur Specific Gravit y (1.005-1.030) Urine Protein (Negative) Urine Glucose (UA) (Normal) Urine Ketones (Negative) Urine Blood (Negative) Urine Nitrate (Negative) Urine Bilirubin (NEGATIVE) Urine Urobilinogen (Negative) mg/dL Ur Leukocyte Hanna ase (Negative) Urine RBC (0-2) /hpf Urine WBC (0-5) /hpf Ur Squamous Epith Cells (0-5) Urine Bacteria (NONE) Urine Mucus EKG Data^: EKG 1: Attestation: I personally reviewed and interpreted this EKG as follows: (1151, NSR, rate 99 and regular, no ectopy or ST elevation) Computer generated interpretation: Chest/Abdomen/Pelvis CT 06/30/19 12:03 IMPRESSION: 1. Left supraclavicular mass appears slightly progressed compared to prior examinations consistent with metastatic disease described above. 2. Progressed AP window and anterior mediastinal lymph nodes consistent with metastatic disease. 3. Chronic appearing fibrosis and atelectasis in the right middle lobe and right lower lobe. No acute-appearing pulmonary infiltrates. 4. Previously described right adrenal hyperplasia versus mass similar in appearance. 5. Air distended loops of small and large bowel with dense rectal impaction and distended rectum. Mild induration in the surrounding perirectal soft tissues can be seen with proctitis. No drainable abscess or fluid collection. 6. Air distended loops of small and large bowel with a few air-fluid levels. This can be seen with adynamic ileus, mild partial small bowel obstruction, or small bowel enteritis. 7. Mild diffuse body wall anasarca. 8. Metastatic lesion involving the right T12 pedicle and lamina. 9. Diffuse thickening at the GE junction consistent with known esophageal carcinoma. Discharge Plan Discharge Patient Disposition: Home, Self-Care Clinical Impression: Fecal impaction in rectum Constipation Qualifiers: Constipation type: unspecified constipation type Qualified Code(s): K59.00 - Constipation, unspecified Condition: Stable Prescriptions: Unruly Christine Milk of Magnesia 400 mg/5 mL suspension 20 ml PO BID PRN (Reason: constipation) Qty: 118 RF: 0 No Action hydrochlorothiazide 12.5 mg Tablet 12.5 mg PO DAILY RF: 0 oxycodone 15 mg tablet 15 mg PO Q4H PRN (Reason: Pain) RF: 0 famotidine 20 mg tablet 20 mg PO BID RF: 0 lisinopril 10 mg tablet 10 mg PO DAILY RF: 0 metoprolol succinate 25 mg tablet extended release 24 hr 12.5 mg PO DAILY RF: 0 fluticasone propionate 50 mcg/actuation spray,suspension 1 spray INTRANASAL DAILY RF: 0 ondansetron HCl [Zofran] 4 mg tablet 4 mg PO Q8H PRN (Reason: nausea and vomiting) Qty: 30 RF: 0 Discharge Orders: Discharge Order (Routine); Ordered 06/30/19 Ordered By: Jason Darby Referrals: Antony Armstrong MD [Primary Care Provider] - Discharge Diet: Usual diet Discharge Activity: Increase activity as tolerated Patient Instructions: Constipation (ED) Activity Restrictions/Additional Instructions: Drink plenty of water. Use milk of magnesia twice a day until good solid stool results. You may need to use a fleets enema for further assistance and stool removal from the rectum. Return to the ER for high fever or significant bowel pain. Follow-up with primary care as needed. 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
--- NOTE | 2019-06-30 11:07 | ECG_ITS ---
Measurements Intervals [place] Rate: 99 P: 62 MT: 160 QRS: 11 QRSD: 87 T: 1 QT: 362 QTc: 466 SINUS RHYTHM Compared to ECG 06/06/2019 05:16:15 Sinus arrhythmia no longer present T-wave abnormality no longer present Electronically Signed On 06-30-2019 18:11:55 CDT by Krista Aranda M.D. [id number]
[2019-06-30 11:31] LABS: Basophils % 0.2 %; Hemoglobin 10.7 g/dL (11.5-15.3); Lymphocytes # 0.9 10^3/uL (0.8-4.8); Lymphocytes % 10.1 %; Mean Corpuscular HGB Conc 31.5 g/dL (30.0-36.0); Mean Corpuscular Hemoglobin 27.9 pg (28.0-34.0); Mean Corpuscular Volume 88.8 fL (81-99); Mean Platelet Volume 9.6 fL (7.4-10.4); Monocytes # 0.4 10^3/uL (0.2-0.9); Monocytes % 5.1 %; Neutrophils # 7.1 10^3/uL (1.8-7.7); Neutrophils % 84.1 %; Nucleated Red Blood Cells % 0 %; Platelet Count 322 10^3/cmm (130-400); Red Blood Count 3.83 10^6/uL (4.1-5.3); Red Cell Distribution Width 14.9 % (12.1-15.1); White Blood Count 8.4 10^3/uL (4.0-10.0)
[2019-06-30 11:58] LABS: Alanine Aminotransferase 9 U/L (0-33); Albumin Level 3.1 g/dL (3.5-5.2); Alkaline Phosphatase 77 IU/L (35-105); Anion Gap 17.8 (5-19); Aspartate Amino Transferase 14 U/L (0-32); Blood Urea Nitrogen 17 mg/dL (6-20); Calcium 9.4 mg/dL (8.5-10.5); Carbon Dioxide 25 mmol/L (22-29); Chloride 100 mmol/L (98-107); Creatinine Clr Calc Pharmacy 96.6457; Globulin 3.3 g/dL (1.3-4.6); Glomerular Filtration Rate 103.8 mL/min (90-130); Glucose 81 mg/dL (65-115); Lipase 8 U/L (13-60); Magnesium 1.7 mg/dL (1.7-2.3); Osmolality Calculated 283 mOsm/kg (285-295); Potassium 3.8 mmol/L (3.5-5.1); Sodium 139 mmol/L (136-145); Total Bilirubin 0.6 mg/dL (0.15-1.2); Total Protein 6.4 g/dL (6.6-8.7)
[2019-06-30 12:02] LABS: Lactate (Lactic Acid level) 0.9 mmol/L (0.5-2.2)
--- NOTE | 2019-06-30 12:03 | CT_ITS ---
WS: [id number] CT CHEST, ABDOMEN, AND PELVIS TECHNIQUE: Contrast-enhanced CT of the chest, abdomen, and pelvis with coronal and sagittal reformatt ed images. CLINICAL INFORMATION: n/v/d COMPARISON: April 23, 2019 and PET/CT January 29, 2019 DLP: 1133.[address] scans at [facility] use at least one of these dose optimization techniques: automat ed exposure control; mA and/or kV adjustment per patient size (includes targeted exams where dose is matched to clinical indication); or iterative reconstruction. CT CHEST: History of esophageal cancer. Normal caliber thoracic aorta. Left supraclavicular metastatic necrotic lymph node/mass measuring 2.3 x 3.1 cm is slightly progressed compared to the prior examinations. No axillary lymphadenopathy. Enlarged AP window and anterior mediastinal lymph nodes appear progressed consistent with metastatic disease. Largest measures 11 mm. Diffuse thickening of the distal esophagu s and GE junction consistent with known esophageal carcinoma. Lungs are well aerated. No acute pulmon tri infiltrates. No focal pneumonia. Chronic appearing fibrosis and atelectasis in the right middle l obe and right lower lobe. CT ABDOMEN AND PELVIS: Normal liver. Abdominal images degraded by breathing artifact. Normal renal parenchymal enhancement. No hydronephrosis. Normal spleen. Prominent rectosigmoid constipation with distended rectum. Surround ing induration and edema in the perirectal soft tissues likely due to proctitis. No drainable abscess or fluid collection. Air distended loops of small and large bowel with a few air-fluid levels can be seen with partial sma ll bowel obstruction versus adynamic ileus or small bowel enteritis. Persistent air within the colon. Stable right adrenal hyperplasia versus mass Diffuse body wall anasarca. No significant free fluid. Thoracolumbar scoliosis. Bony metastatic lesio ns in the right T12 pedicle and posterior elements. This corresponds to the to the FDG avid area on t he prior PET/CT. CT/CT chest abd pel w con* IMPRESSION: 1. Left supraclavicular mass appears slightly progressed compared to prior exa minations consistent with metastatic disease described above. 2. Progressed AP window and anterior mediastinal lymph nodes consistent with m etastatic disease. 3. Chronic appearing fibrosis and atelectasis in the right middle lobe and rig ht lower lobe. No acute-appearing pulmonary infiltrates. 4. Previously described right adrenal hyperplasia versus mass similar in julien dunlap. 5. Air distended loops of small and large bowel with dense rectal impaction an d distended rectum. Mild induration in the surrounding perirectal soft tissues can be seen with proctitis. No drainable abscess or fluid collection. 6. Air distended loops of small and large bowel with a few air-fluid levels. T his can be seen with adynamic ileus, mild partial small bowel obstruction, or s mall bowel enteritis. 7. Mild diffuse body wall anasarca. 8. Metastatic lesion involving the right T12 pedicle and lamina. 9. Diffuse thickening at the GE junction consistent with known esophageal carc inoma.
[2019-06-30 12:06] LABS: Add Urine Culture? Yes; Add Urine Microscopic? YES; Bacteria Urine 2+; Bilirubin Urine 1+ (NEGATIVE); Blood Urine Neg (Negative); Glucose Urine UA Norm (Normal); Ketones Urine 1+ (Negative); Leukocyte Esterase Urine 2+ (Negative); Mucus Urine TRACE; Nitrate Urine Positive (Negative); Protein Urine 1+ (Negative); Urine Appearance Cloudy (CLEAR); Urine Color Amber (Yellow); Urobilinogen Urine 8 mg/dL (Negative); WBC Urine 55-80 /hpf (0-5)
[2019-06-30] MEDS: sodium chloride 0.9% 500 ML 999 ML IV (12:26)
[2019-06-30] MEDS: diphenoxylate/atropine Tablet 2 TAB PO (12:26)
[2019-06-30] MEDS: ondansetron 2 mg/ML SDV 2 mL 4 MG IVP (12:27)
[2019-06-30] MEDS: iohexol 300 mg/mL 100 mL Btl IV (13:04)
[2019-06-30] MEDS: HYDROcodone-acetaminophen 5-325 mg Tablet 1 TAB PO (13:16)
[2019-06-30 14:39] VITALS: BP 130/99; PULSE 102; RESP 20; O2SAT 96
--- NOTE | 2019-07-02 11:10 | PC.NURSE ---
pt was called to have her come back to ED
--- NOTE | 2019-07-02 14:53 | P.HP_ITS ---
Providers/Chief Complaint Admitting Physician: Sabi Wakefield Primary Care Provider: Antony Armstrong MD Chief Complaint: N/V/D History of Present Illness Maria D Stubbs is a 53 year old female with a past medical history of distal esophageal cancer, stage IVb. She presented to the hospital today due to intractable nausea and vomiting. She reports that she has been having trouble o ricki the past couple of days. She states that she came to the ER initially was discharged to home with concern for fecal impaction. She stated that she will typically go up to a month without having a bowel movement. She does not recall when her last bowel movement was. Patient reports following with her oncologist today and due to the concern for continued nausea and vomiting she was sent to [facility] for further evaluation and treatment. Patient was seen and evaluated in the emergency department noted to have a CT scan of her abdomen and pelvis which showed fecal impaction and concern for bilateral groundglass opacifications on the chest. She reported that she has been having increased cough and sputum production. She denies any fevers at home, no sick contacts and reported that she lives at home by herself. She reports that she has not been hospitalized recently but was seen and evaluated in the emergency department recently. Patient noted decreased appetite and decreased oral intake. She stated that she has not had any recent radiation, stated that she has been unable to lie on the hard surface to receive radiation therapy. Patient reports decreased energy due to concerns noted. She denies any contact of anyone with confirmed or suspected CO VID-19, denies any recent travel. Patient was seen and evaluated in the emergency department she was tested for CO VID-19 due to reported cough, sputum production and bilateral groundglass opacities. She was noted to have concern for urinary tract infection with ESBL E. coli and started on IV antibiotics. She did not have any episodes of vomiting while in the ED but reported 4 episodes this morning prior to arrival. Review of Systems Const: Reports: change in appetite, change in weight and fatigue; Denies: fever or chills Eyes: Denies: change in vision ENMT: Denies: nasal congestion Card: Reports: edema; Denies: chest pain or palpitations Resp: Reports: productive cough; Denies: shortness of breath or coughing up blood GI: Reports: abdominal pain, nausea, vomiting and constipation; Denies: diarrhea, blood in stool or black tarry stool : Reports: painful urination; Denies: blood in urine Musc: Denies: extremity pain or muscle cramps Skin/Breast: Denies: rash or new lesion Neuro: Denies: headache or dizziness Psych: Denies: anxiety or depression Endo: Denies: excessive urination or hot flashes Fidel/Lymph: Reports: easy bruising; Denies: easy bleeding Medications/Allergies Home Medications Medication Instructions Recorded Confirmed Last Taken Type famotidine 20 mg PO BID 03/22/19 07/02/19 07/01/19 History fluticasone propionate 1 spray INTRANASAL DAILY 03/22/19 07/02/19 07/01/19 History lisinopril 10 mg PO DAILY 03/22/19 07/02/19 07/01/19 History metoprolol succinate 12.5 mg PO DAILY 03/22/19 07/02/19 07/02/19 History oxycodone 15 mg PO Q4H PRN 03/22/19 07/02/19 06/29/19 History hydrochlorothiazide 12.5 mg PO DAILY 06/30/19 07/02/19 07/01/19 History Allergies Allergy/AdvReac Type Severity Reaction Status Date / Time adhesive Allergy ALGY-Rash Verified 04/08/19 16:33 latex Allergy ALGY-Rash Verified 04/08/19 16:33 PFSH Acute PFSH: Medical History (Updated 07/02/19 @ 15:31 by Sabi Wakefield DO) Biliary colic Cholecystitis Cholelithiasis Diverticulosis Esophageal cancer, stage IV 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, stage IVb GI bleeding History of diabetes mellitus HTN (hypertension) UTI (urinary tract infection) Surgical History (Updated 07/02/19 @ 15:31 by Sabi Wakefield DO) History of cholecystectomy History of esophagogastroduodenoscopy (EGD) Family History (Updated 07/02/19 @ 15:32 by Sabi Wakefield DO) Mother Congestive heart failure Social History (Updated 07/02/19 @ 15:32 by Sabi Wakefield DO) Smoking and tobacco status: never smoked Alcohol intake: never Substance/Drug Use: never Vitals/I&O/Wt Last Vital Signs Temp 98.2 F 06/30/19 10:43 Pulse 102 H 06/30/19 14:39 Resp 20 H 06/30/19 14:39 BP 130/99 06/30/19 14:39 Pulse Ox 96 06/30/19 14:39 Physical Exam Const: COMMON NORMALS: oriented x3 and alert GENERAL APPEARANCE: cooperative and frail appearing NUTRITIONAL APPEARANCE: thin ORIENTATION/CONSCIOUSNESS: Yes awake, Yes oriented to person, Yes oriented to place and Yes oriented to time HENMT: COMMON NORMALS: normocephalic and head/scalp atraumatic HEAD & SCALP: normocephalic and atraumatic TEETH & GINGIVA: Yes poor dentition Eye: COMMON NORMALS: PERRL PUPIL: Yes PERRL Neck/C-Spine: COMMON NORMALS: supple GENERAL: Yes normal visual inspection Resp: COMMON NORMALS: normal respiratory effort and clear to auscultation bilaterally EFFORT & INSPECTION: Yes able to speak in complete sentences AUSCULTATION: no rhonchi and no wheezes OTHER: Diminished breath sounds in the bases bilaterally, no appreciable wheezing or rhonchi Cardio: COMMON NORMALS: regular rate, regular rhythm and no murmurs RATE: tachycardic RHYTHM: regular rhythm GI: COMMON NORMALS: soft to palpation OTHER: Soft, tenderness to palpation in the epigastric region as well as in the left lower quadrant, no guarding or rigidity, hypoactive bowel sounds : COMMON NORMALS: Yes no CVA tenderness BLADDER/KIDNEY EXAM: Yes no CVA tenderness Back/Pelvis: COMMON NORMALS: no CVA tenderness Extremity: COMMON NORMALS: no calf tenderness NARRATIVE EXTREMITY EXAM: 2+ pitting edema in the lower extremities bilaterally Neuro: COMMON NORMALS: oriented x3, CN's II-XII intact bilaterally, moves all extremities and no focal motor deficits SENSORIUM/ORIENTATION: Yes alert, Yes oriented to person, Yes oriented to place and Yes oriented to time SPEECH: speech normal Psych: COMMON NORMALS: mental status grossly normal and cooperative Skin: COMMON NORMALS: no rashes or lesions noted GENERAL SKIN EXAM: no rashes or lesions noted Data : 06/30/19 11:18 06/30/19 11:18 Micro: Microbiology 06/30/19 11:00 Urine Culture - Final Urine,Clean Catch Escherichia coli esbl 06/30/19 11:34 Blood Culture - Preliminary Blood Gram positive hay A&P Assessment and plan (1) Vomiting: Intractable nausea and vomiting Admit and continue with gentle IV fluids and antiemetics Patient initially reported 4 episodes of vomiting prior to admission but requesting diet while in the ED. Due to improvement will give clear liquid diet but if any recurrent symptoms will change to n.p.o. status. Believe that this is multifactorial related to patient's fecal impaction, underlying malignancy as well as urinary tract infection. Status: Acute Qualifiers: Nausea presence: with nausea Vomiting Intractability: non-intractable Vomiting type: unspecified Qualified Code(s): R11.2 - Nausea with vomiting, unspecified (2) Fecal impaction in rectum: Lactulose and MiraLAX started Milk and molasses enema Improved appearance of CT scan, no evidence of any small bowel obstruction or ileus at this time, patient requesting diet, will give clear liquids but if any worsening pain or nausea will transition to n.p.o. status Chronic pain due to malignancy on daily opioids that is likely contributing to opioid-induced constipation Status: Acute (3) Acute cystitis: Acute cystitis with ESBL E. coli, continue with broad-spectrum IV antibiotics at this time. We will continue on Zosyn. No CVA tenderness at time of exam in the ED. Status: Acute Qualifiers: Hematuria presence: without hematuria Qualified Code(s): N30.00 - Acute cystitis without hematuria (4) Pneumonia: Patient has bilateral glaucoma glass opacifications on chest imaging. She reports increasing cough over the past couple of days. Due to her recently being in the emergency department and her respiratory symptoms will test for CO VID-19. Patient to remain on contact and droplet precautions until testing returns. Patient also reports increased nausea and vomiting over the past several days and findings could be consistent with aspiration pneumonia, speech therapy ordered for evaluation and treatment and will continue on IV Zosyn as above for cystitis along with aspiration coverage. Status: Acute Qualifiers: Laterality: bilateral Lung location: lower lobe of lung Pneumonia type: due to unspecified organism Qualified Code(s): J18.9 - Pneumonia, unspecified organism (5) Esophageal cancer, stage IV: Patient followed by Dr. Hilliard, hematology/oncology Previously receiving radiation, now holding off Status: Acute Additional A&P Information Bilateral lower extremity edema: 2+ pitting edema in the lower extremities bilaterally, negative Homans sign in the lower extremities bilaterally, appears to be more related to fluid, echocardiogram ordered for evaluation cardiac status. Will check TSH Hypertension: Continue on lisinopril and metoprolol, hold hydrochlorothiazide at this time as patient continues to have recurrent nausea and vomiting and do not wish for her to become to hypovolemic Previously diagnosed diabetes, now diet controlled due to weight loss secondary to metastatic disease Chronic pain on daily opioids, due to metastatic disease: Continue on home oxycodone Previously positive blood culture: Blood culture from 06/30/2019 shows gram- positive organisms, likely believed to be contamination as it is different organism than urine culture however will continue on IV antibiotics and repeat blood culture. DVT ppx: Lovenox Diet: Clear liquid diet Code status: Full code Attestations Medical Necessity Statement*: Placed on observation at this time due to ESBL E. coli UTI with intractable nausea and vomiting and fecal impaction with metastatic esophageal cancer. Expected stay less than 2 midnights. 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
== END 2019-06-30 14:42 | disposition home or self-care (01) ==
PROVIDERS: Emergency Provider Nurse Practitioner Family; Family Provider Family Medicine; PCP Family Medicine
DX: K56.41 Fecal impaction (principal); I10 Essential (primary) hypertension
CPT/HCPCS: 12345; 71260; 74177; 80053; 81001; 83605; 83630; 83690; 83735; 85025; 87040; 87077; 87086; 87186; 87205; 93005; 96361; 96374; 96375; 99282; 99284; J2405; J7040; Q9967

== ENCOUNTER 2019-07-02 08:57 | Outpatient (CLI) | payer MEDICARE, SELFPAY ==
[2019-07-02] MEDS: sodium chloride 0.9% 1,000 ML 999 ML IV (09:55)
[2019-07-02] MEDS: HYDROmorphone 1 mg/mL INJ 1 mL 2 MG IV (10:30)
== END 2019-07-02 08:58 | disposition home or self-care (01) ==
LOC: ONCMED 09:00
PROVIDERS: Family Provider Family Medicine; PCP Family Medicine; Visit Provider Internal Medicine Medical Oncology
DX: Z51.11 Encounter for antineoplastic chemotherapy (principal); C15.5 Malignant neoplasm of lower third of esophagus; C79.51 Secondary malignant neoplasm of bone; Z79.52 Long term (current) use of systemic steroids
CPT/HCPCS: 96361; 96365; 96367; 96375; J1100; J1170; J2405; J3490; J7030

== ENCOUNTER 2019-07-02 11:50 | Inpatient (IN) | payer MEDICARE, SELFPAY ==
[2019-07-02] VITALS (37 sets, daily range): BP systolic 125–150; BP diastolic 85–111; PULSE 79–116; RESP 11–36; TEMP 36.5; O2SAT 92–100; BMI 18.3
--- NOTE | 2019-07-02 12:07 | W.ED.GENADLT ---
HPI - General Adult General: Chief complaint: General Medical Stated complaint: SWELLING, SENT BY DR CARRIZALES Time Seen by Provider: 07/02/19 11:54 Source: patient Mode of arrival: ambulatory Limitations: no limitations History of Present Illness: HPI narrative: 53-year-old female with a history of cancer has had vomiting and diarrhea for the last 4 to 5 days. States she is unable to tolerate any p.o. Patient seen here 2 days ago and had a UTI along with CT showed a possible partial small bowel obstruction. Patient sent back up here by her oncologist to be admitted. She denies any fevers. She has had no cough. Onset (ago): day(s) Associated symptoms: Reports nausea and vomiting; Deny chest pain, dyspnea, headache(s) or rash Review of Systems Const: Denies: fever, chills, body aches or change in appetite Eyes: Denies: blurry vision or eye discomfort ENMT: Denies: throat pain or dental pain Card: Denies: chest pain Resp: Denies: shortness of breath GI: Reports: nausea, vomiting and diarrhea : Denies: painful urination Musc: Denies: neck pain or back pain Skin/Breast: Denies: rash Neuro: Denies: headache Psych: Denies: depression Fidel/Lymph: Denies: easy bruising All/Imm: Denies: hives PFSH ED PFSH: Medical History Biliary colic Cholecystitis Cholelithiasis GI bleeding HTN (hypertension) UTI (urinary tract infection) Surgical History History of cholecystectomy Social History Smoking and tobacco status: never smoked Physical Exam Const: COMMON NORMALS: no apparent distress, oriented x3 and healthy appearing HENMT: COMMON NORMALS: normocephalic and head/scalp atraumatic HEAD & SCALP: normocephalic and atraumatic Eye: COMMON NORMALS: PERRL and EOMs intact bilaterally PUPIL: Yes PERRL Neck/C-Spine: COMMON NORMALS: full ROM and supple Chest: COMMONS NORMALS: inspection of chest normal and palpation of chest normal Resp: COMMON NORMALS: normal respiratory effort, no retractions, no use of accessory muscles and clear to auscultation bilaterally AUSCULTATION: clear to auscultation bilaterally Cardio: COMMON NORMALS: regular rate, regular rhythm and no murmurs RATE: regular rate RHYTHM: regular rhythm GI: COMMON NORMALS: normal to inspection, nondistended, normoactive bowel sounds, soft to palpation, non-tender and no masses PALPATION: Yes soft Extremity: COMMON NORMALS: normal to inspection and full ROM Neuro: COMMON NORMALS: oriented x3, moves all extremities and no focal motor deficits Psych: COMMON NORMALS: mental status grossly normal, thought process normal and cooperative THOUGHT PROCESS: normal thought process Skin: COMMON NORMALS: no rashes or lesions noted and no wounds GENERAL SKIN EXAM: no rashes or lesions noted Course Vital Signs: Vital signs: Vital Signs Temperature 97.7 F 07/02/19 11:59 Pulse Rate 87 07/02/19 12:18 Respiratory Rate 16 07/02/19 12:18 Blood Pressure 137/91 07/02/19 12:18 Pulse Oximetry 98 07/02/19 11:59 MDM - General Adult MDM Narrative: Medical decision making narrative: Patient presents here with cystitis, CT scan showing a pneumonia. Patient also has vomiting. I spoke to Dr. almonte and will admit. Patient's cultures from her previous urine showed resistance to Rocephin but is susceptible to Zosyn so will start on vancomycin and Zosyn for her UTI and pneumonia Lab Data: Labs: Lab Results 07/02/19 07/02/19 Range/Units 12:18 12:18 WBC 9.0 (4.0-10.0) 10^3/ uL RBC 4.07 L (4.1-5.3) 10^6/u L Hgb 11.4 L (11.5-15.3) g/dL Hct 37.0 (37.0-47.0) % MCV 90.9 (81-99) fL MCH 28.0 (28.0-34.0) pg MCHC 30.8 (30.0-36.0) g/dL RDW 15.1 (12.1-15.1) % Plt Count 277 (130-400) 10^3/c mm MPV 9.5 (7.4-10.4) fL Neut % (Auto) 94.0 % Lymph % (Auto) 3.8 % [place] % (Auto) 1.6 % Eos % (Auto) 0.0 % Baso % (Auto) 0.2 % Neut # (Auto) 8.5 H (1.8-7.7) 10^3/u L Lymph # (Auto) 0.3 L (0.8-4.8) 10^3/u L [place] # (Auto) 0.1 L (0.2-0.9) 10^3/u L Eos # (Auto) 0.0 (0.0-0.8) 10^3/u L Baso # (Auto) 0.0 (0.0-0.1) 10^3/u L Nucleated RBC % (a uto) 0 % Nucleated RBCs # 0.0 /100WBC Sodium 138 (136-145) mmol/L Potassium 3.8 (3.5-5.1) mmol/L Chloride 103 (98-107) mmol/L Carbon Dioxide 24 (22-29) mmol/L Anion Gap 14.8 (5-19) BUN 13 (6-20) mg/dL Creatinine 0.5 (0.5-0.9) mg/dL GFR Calculation 128.1 (90-130) mL/min Glucose 95 (65-115) mg/dL Calculated Osmolal ity 282 L (285-295) mOsm/k g Calcium 8.6 (8.5-10.5) mg/dL Total Bilirubin 0.4 (0.15-1.2) mg/dL AST 19 (0-32) U/L ALT 9 (0-33) U/L Alkaline Phosphata se 85 (35-105) IU/L Total Protein 6.3 L (6.6-8.7) g/dL Albumin 2.9 L (3.5-5.2) g/dL Globulin 3.4 (1.3-4.6) g/dL Imaging Data^: CT Abd/Pel: Radiologist's impression: [address] [address] [address] Scan Report Signed Patient: Maria D Stubbs Unit #: [id number] : 1965 Age/Sex: 53 / F ADM Date: 07/02/19 Loc: ER Room/Bed: Attending Dr: Ordering Provider/Ordering MD: Eboni Crook MD Date of Service: 07/02/19 Procedure(s): CT abdomen pelvis w con* [id number] Accession Number(s): [id number] Report Number: [id number] WS: [id number] CT ABDOMEN PELVIS TECHNIQUE: Contrast-enhanced CT of the abdomen and pelvis with coronal and sagittal reformatted images. CLINICAL INFORMATION: vomiting COMPARISON: 04/23/2019 and 06/30/2019 DLP: 602.[address] scans at [facility] use at least one of these dose optimization techniques: automated exposure control; mA and/or kV adjustment per patient size (includes targeted exams where dose is matched to clinical indication); or iterative reconstruction. FINDINGS: Groundglass infiltrates in the lung bases are new since the recent examination June 30, 2019 consistent with pneumonia. Groundglass infiltrates in the right lower lobe medially and left lower lobe medially. Stable atelectasis with air bronchograms in the right middle lobe. Mild intrahepatic biliary ductal dilatation. Normal portal vein and splenic vein. Heterogeneously enhancing lesion within the medial segment right hepatic lobe not seen previously due to motion artifact. This measures approximately 2.5 x 1.5 cm. Hepatic lesion suspicious for metastatic disease but indeterminant. Diffuse thickening of the GE junction consistent with known esophageal carcinoma. Normal renal parenchymal enhancement. No hydronephrosis. Normal spleen.Stable right adrenal hyperplasia versus mass. Fatty atrophy of the pancreas. Prominent rectosigmoid constipation is again seen with surrounding induration suspicious for reactive changes or proctitis. This appears similar to the recent examination. Diverticulosis. No evidence of acute diverticulitis. Small bowel appears less distended today. No other significant interval changes. Trace free fluid in the pelvis. Thoracolumbar scoliosis. Bony metastatic lesions in the right T12 pedicle and posterior elements. This corresponds to the to the FDG avid area on the prior PET/CT. Attempted notification Eboni Crook MD at 07/02/2019 1:28 PM. Not currently available for verbal report. CT/CT abdomen pelvis w con* [id number] IMPRESSION: 1. New groundglass infiltrates in the lung bases consistent with pneumonia. These have developed since June 30, 2019 2. Persistent markedly distended rectum with rectal impaction and surrounding induration similar to the recent examination. 3. Improved small bowel distention today. 4. Heterogeneously enhancing lesion involving the medial segment right hepatic lobe measuring 2.5 x 1.5 cm not seen on the recent examination due to motion artifact. This is indeterminant but suspicious for metastatic disease. 5. No hydronephrosis. 6. Stable right adrenal mass versus hyperplasia. 7. Diffuse thickening at the GE junction consistent with known esophageal carcinoma. 8. Stable bony metastatic disease involving T12 posterior elements described previously. EKG Data^: EKG 1: Attestation: I personally reviewed and interpreted this EKG as follows: EKG interpretation date: 07/02/19 EKG interpretation time: 12:19 Interpretation: nsr hr [address] or t wave abnormalities qrs 90 qtc 441 Computer generated interpretation: Abdomen/Pelvis CT 07/02/19 12:13 IMPRESSION: 1. New groundglass infiltrates in the lung bases consistent with pneumonia. These have developed since June 30, 2019 2. Persistent markedly distended rectum with rectal impaction and surrounding induration similar to the recent examination. 3. Improved small bowel distention today. 4. Heterogeneously enhancing lesion involving the medial segment right hepatic lobe measuring 2.5 x 1.5 cm not seen on the recent examination due to motion artifact. This is indeterminant but suspicious for metastatic disease. 5. No hydronephrosis. 6. Stable right adrenal mass versus hyperplasia. 7. Diffuse thickening at the GE junction consistent with known esophageal carcinoma. 8. Stable bony metastatic disease involving T12 posterior elements described previously. Discharge Plan Discharge Patient Disposition: Admitted As Inpatient Clinical Impression: Acute cystitis, Pneumonia, Vomiting Condition: Stable Prescriptions: No Action hydrochlorothiazide 12.5 mg Tablet 12.5 mg PO DAILY RF: 0 oxycodone 15 mg tablet 15 mg PO Q4H PRN (Reason: Pain) RF: 0 famotidine 20 mg tablet 20 mg PO BID RF: 0 lisinopril 10 mg tablet 10 mg PO DAILY RF: 0 metoprolol succinate 25 mg tablet extended release 24 hr 12.5 mg PO DAILY RF: 0 fluticasone propionate 50 mcg/actuation spray,suspension 1 spray INTRANASAL DAILY RF: 0 Referrals: Antony Armstrong MD [Primary Care Provider] - Coding Level of Care Code ED Electronic Systems Technician for Chg Fwd Exam Comprehensive
--- NOTE | 2019-07-02 12:13 | CT_ITS ---
WS: [id number] CT ABDOMEN PELVIS TECHNIQUE: Contrast-enhanced CT of the abdomen and pelvis with coronal and sagittal reformatted image s. CLINICAL INFORMATION: vomiting COMPARISON: 04/23/2019 and 06/30/2019 DLP: 602.[address] scans at [facility] use at least one of these dose optimization techniques: automat ed exposure control; mA and/or kV adjustment per patient size (includes targeted exams where dose is matched to clinical indication); or iterative reconstruction. FINDINGS: Groundglass infiltrates in the lung bases are new since the recent examination June 29 consistent with pneumonia. Groundglass infiltrates in the right lower lobe medially and left lower lobe medially. Stable atelectasis with air bronchograms in the right middle lobe. Mild intrahepatic biliary ductal dilatation. Normal portal vein and splenic vein. Heterogeneously enh ancing lesion within the medial segment right hepatic lobe not seen previously due to motion artifact . This measures approximately 2.5 x 1.5 cm. Hepatic lesion suspicious for metastatic disease but inde terminant. Diffuse thickening of the GE junction consistent with known esophageal carcinoma. Normal renal parenchymal enhancement. No hydronephrosis. Normal spleen.Stable right adrenal hyperplas ia versus mass. Fatty atrophy of the pancreas. Prominent rectosigmoid constipation is again seen with surrounding induration suspicious for reactive changes or proctitis. This appears similar to the rec ent examination. Diverticulosis. No evidence of acute diverticulitis. Small bowel appears less disten ded today. No other significant interval changes. Trace free fluid in the pelvis. Thoracolumbar scoliosis. Bony metastatic lesions in the right T12 pedicle and posterior elements. Thi s corresponds to the to the FDG avid area on the prior PET/CT. Attempted notification Eboni Crook MD at 07/02/2019 1:28 PM. Not currently available for verbal report. CT/CT abdomen pelvis w con* [id number] IMPRESSION: 1. New groundglass infiltrates in the lung bases consistent with pneumonia. Th julia have developed since June 30, 2019 2. Persistent markedly distended rectum with rectal impaction and surrounding induration similar to the recent examination. 3. Improved small bowel distention today. 4. Heterogeneously enhancing lesion involving the medial segment right hepatic lobe measuring 2.5 x 1.5 cm not seen on the recent examination due to motion a rtifact. This is indeterminant but suspicious for metastatic disease. 5. No hydronephrosis. 6. Stable right adrenal mass versus hyperplasia. 7. Diffuse thickening at the GE junction consistent with known esophageal carc inoma. 8. Stable bony metastatic disease involving T12 posterior elements described p reviously.
[2019-07-02 12:25] LABS: Basophils % 0.2 %; Hemoglobin 11.4 g/dL (11.5-15.3); Lymphocytes # 0.3 10^3/uL (0.8-4.8); Lymphocytes % 3.8 %; Mean Corpuscular HGB Conc 30.8 g/dL (30.0-36.0); Mean Corpuscular Volume 90.9 fL (81-99); Mean Platelet Volume 9.5 fL (7.4-10.4); Monocytes # 0.1 10^3/uL (0.2-0.9); Monocytes % 1.6 %; Neutrophils # 8.5 10^3/uL (1.8-7.7); Nucleated Red Blood Cells % 0 %; Platelet Count 277 10^3/cmm (130-400); Red Blood Count 4.07 10^6/uL (4.1-5.3); Red Cell Distribution Width 15.1 % (12.1-15.1)
[2019-07-02] MEDS: piperacillin-tazobactam 3.375 GM in sodium chloride 0.9% (plus) 50 ML IV ×2 (12:38→20:58)
[2019-07-02 12:45] LABS: Alanine Aminotransferase 9 U/L (0-33); Albumin Level 2.9 g/dL (3.5-5.2); Alkaline Phosphatase 85 IU/L (35-105); Anion Gap 14.8 (5-19); Aspartate Amino Transferase 19 U/L (0-32); Blood Urea Nitrogen 13 mg/dL (6-20); Calcium 8.6 mg/dL (8.5-10.5); Carbon Dioxide 24 mmol/L (22-29); Chloride 103 mmol/L (98-107); Globulin 3.4 g/dL (1.3-4.6); Glomerular Filtration Rate 128.1 mL/min (90-130); Glucose 95 mg/dL (65-115); Osmolality Calculated 282 mOsm/kg (285-295); Potassium 3.8 mmol/L (3.5-5.1); Sodium 138 mmol/L (136-145); Total Bilirubin 0.4 mg/dL (0.15-1.2); Total Protein 6.3 g/dL (6.6-8.7)
[2019-07-02] MEDS: iohexol 300 mg/mL 100 mL Btl IV (13:03)
[2019-07-02 14:38] LABS: Urine Appearance Hazy (CLEAR); Urine Color Yellow (Yellow); pH Urine 6.5 (5-7)
[2019-07-02 14:39] LABS: Add Urine Microscopic? YES; Bacteria Urine 1+; Bilirubin Urine Neg (NEGATIVE); Blood Urine 2+ (Negative); Glucose Urine UA Norm (Normal); Ketones Urine 1+ (Negative); Leukocyte Esterase Urine 2+ (Negative); Nitrate Urine Positive (Negative); Protein Urine Neg (Negative); RBC Urine 25-40 /hpf (0-2); Squamous Epithelial Cell Urine 0-4 (0-5); Urobilinogen Urine 1 mg/dL (Negative); WBC Urine 55-80 /hpf (0-5)
[2019-07-02 14:40] LABS: Add Urine Culture? Yes
[2019-07-02 20:32] LABS: NT Pro B Type Natriuretic Pept 630 pg/mL (0-125); Thyroid Stimulating Hormone 3.01 uIU/mL (0.27-4.20)
[2019-07-02] MEDS: oxyCODONE IR 30 mg Tablet 15 MG PO (20:57)
[2019-07-02] MEDS: enoxaparin 40 mg/0.4 mL Syringe SUBCUT (21:01)
[2019-07-02] MEDS: lactated ringers 1,000 ML 50 ML IV (21:01)
[2019-07-02] MEDS: polyethylene glycol 3350 Pkt 17 gm PO (21:01)
--- NOTE | 2019-07-02 21:53 | PC.NURSE ---
Patient is med-surg overflow patient to ICU bed 5. Patient complains of intermittent nausea during assessment, states that this is frequent for her and passes quickly normally. Declines PRN medication for nausea. Patient up to bedside commode with assist x1.
--- NOTE | 2019-07-02 22:00 | PC.NURSE ---
Patient resting in bed, medications given for pain. Patient requesting to not be awoken until IV antibiotics are ready to be disconnected. Patient refuses enema, educated on reason for administration but patient declines and states I just don't want to be up all night, I need to get some sleep. I will take one in the morning. Will continue to monitor
[2019-07-03] VITALS (121 sets, daily range): BP systolic 114–161; BP diastolic 83–101; PULSE 70–116; RESP 5–30; TEMP 36.3–36.6; O2SAT 85–100
--- NOTE | 2019-07-03 | USCV_ITS ---
Enoc Maria D Age: 53 Gender: F : 1965 Exam Date: 07/03/2019 15:55 Ordering Phys: Sabi Wakefield DO Technologist: Denilson Byrd [place] [facility] [place] Indication: CHF BP: 130 / 80 HR: 71 Rhythm: Sinus Technical Quality: Fair MEASUREMENTS (Male / Female) Normal Values 2D ECHO LV Diastolic Diameter PLAX 2.9 cm 4.2 - 5.9 / 3.9 - 5.3 cm LV Systolic Diameter PLAX 1.8 cm IVS Diastolic Thickness 0.9 cm 0.6 - 1.0 / 0.6 - 0.9 cm IVS Systolic Thickness 1.1 cm LVPW Diastolic Thickness 1.0 cm 0.6 - 1.0 / 0.6 - 0.9 cm LVPW Systolic Thickness 1.4 cm LVOT Diameter 2.1 cm LV Ejection Fraction 2D Teich 71.6 % LV Ejection Fraction MOD 2C 47.6 % LV Ejection Fraction 2C AL 45.6 % LA Diameter 3.4 cm LA Width 3.6 cm LA Height 4.0 cm RA Width 2.8 cm RA Height 3.6 cm Aorta at Sinotubular Diameter 2.9 cm M-MODE LV Diastolic Diameter MM 4.5 cm 4.2 - 5.9 / 3.9 - 5.3 cm LV Systolic Diameter MM 3.1 cm LV Ejection Fraction MM Teich 58.2 % IVS Diastolic Thickness MM 0.9 cm 0.6 - 1.0 / 0.6 - 0.9 cm IVS Systolic Thickness MM 1.3 cm LVPW Diastolic Thickness MM 1.0 cm 0.6 - 1.0 / 0.6 - 0.9 cm LVPW Systolic Thickness MM 1.5 cm RV Diastolic Diameter MM 1.2 cm Aortic Annulus Diameter 3.8 cm LA Ao Ratio MM 0.9 MV E Point Septal Separation 0.4 cm DOPPLER AV Peak Velocity 113.0 cm/s LVOT Peak Velocity 73.0 cm/s AV Area Cont Eq vti 2.1 cm squared AV Area Cont Eq pk 2.2 cm squared MV Area PHT 5.0 cm squared Mitral E to A Ratio 0.9 MV E' Velocity 7.0 cm/s Mitral E to MV E' Ratio 8.0 Mitral E to LV E' Lateral Ratio 8.1 Mitral E to LV E' Septal Ratio 7.8 TR Peak Velocity 160.0 cm/s TR Peak Gradient 10.2 mmHg TV Peak E Velocity 76.0 cm/s Right Atrial Pressure 3.0 mmHg Pulmonary Artery Systolic Pressu 13.2 mmHg FINDINGS Left Ventricle Normal left ventricular size and systolic function, EF 55 %. No regional wall motion abnormalities. Mild left ventricular hypertrophy. Grade I/IV diastolic dysfunction (abnormal relaxation filling pattern), normal to mildly elevated filling pressures. Right Ventricle Normal right ventricular size and systolic function. Right Atrium The right atrium is normal in size. Left Atrium The left atrium is normal in size. Mitral Valve Trace mitral valve regurgitation. Aortic Valve Thickened aortic valve. Tricuspid Valve No gross abnormalities noted Pulmonic Valve No gross abnormalities noted Pericardium Normal pericardium without effusion. Aorta Normal aortic annulus size. CONCLUSIONS Normal left ventricular size and systolic function, EF 55 %. No regional wall motion abnormalities. Mild left ventricular hypertrophy. Type I diastolic dysfunction. Trace mitral valve regurgitation. There is no pericardial effusion. There are no intracardiac masses. There are no prior echocardiogram studies to compare. Dr Krista Aranda MD FACC (Electronically Signed) Final Date: 03 July 2019 17:57 C MTDD
[2019-07-03] MEDS: oxyCODONE IR 30 mg Tablet 15 MG PO ×2 (01:04→05:11)
--- NOTE | 2019-07-03 04:09 | PC.NURSE ---
Patient sleeping, in no apparent distress. Will continue to monitor.
[2019-07-03] MEDS: piperacillin-tazobactam 3.375 GM in sodium chloride 0.9% (plus) 50 ML IV ×3 (04:37→19:31)
[2019-07-03 04:46] LABS: Basophils % 0.1 %; Eosinophils % 0.1 %; Hematocrit 33.9 % (37.0-47.0); Hemoglobin 10.6 g/dL (11.5-15.3); Lymphocytes % 14.3 %; Mean Corpuscular HGB Conc 31.3 g/dL (30.0-36.0); Mean Corpuscular Hemoglobin 28.4 pg (28.0-34.0); Mean Corpuscular Volume 90.9 fL (81-99); Mean Platelet Volume 9.4 fL (7.4-10.4); Monocytes # 0.5 10^3/uL (0.2-0.9); Monocytes % 6.5 %; Neutrophils # 5.4 10^3/uL (1.8-7.7); Neutrophils % 78.6 %; Nucleated Red Blood Cells % 0 %; Platelet Count 283 10^3/cmm (130-400); Red Blood Count 3.73 10^6/uL (4.1-5.3); Red Cell Distribution Width 15.2 % (12.1-15.1); White Blood Count 6.9 10^3/uL (4.0-10.0)
[2019-07-03 05:14] LABS: Anion Gap 13.3 (5-19); Blood Urea Nitrogen 11 mg/dL (6-20); Calcium 8.5 mg/dL (8.5-10.5); Carbon Dioxide 27 mmol/L (22-29); Chloride 105 mmol/L (98-107); Glomerular Filtration Rate 128.1 mL/min (90-130); Glucose 105 mg/dL (65-115); Osmolality Calculated 288 mOsm/kg (285-295); Potassium 4.3 mmol/L (3.5-5.1); Sodium 141 mmol/L (136-145)
--- NOTE | 2019-07-03 06:08 | PC.NURSE ---
Blanchable redness noted on coccyx and sacrum over bony prominences. Patient encouraged to shift laterally and avoid laying supine, patient verbalizes understanding. No skin breakdown noted.
[2019-07-03] MEDS: bisacodyl 5 mg Tablet 10 MG PO (07:38)
[2019-07-03] MEDS: HYDROcodone-acetaminophen 5-325 mg Tablet 1 TAB PO ×2 (07:39→14:02)
[2019-07-03] MEDS: fluticasone nasal spray 16gm Btl 1 SPRAY INTRANASAL (07:40)
[2019-07-03] MEDS: polyethylene glycol 3350 Pkt 17 gm PO (07:40)
[2019-07-03] MEDS: metoprolol succinate ER (24 HR) 25 mg Tablet 12.5 MG PO (07:41)
[2019-07-03] MEDS: famotidine 20 mg Tablet PO ×2 (07:41→18:41)
[2019-07-03] MEDS: lisinopril 10 mg Tablet PO (07:42)
[2019-07-03] MEDS: lactulose oral liq 20 gm/30 mL UDC 10 GM PO (07:42)
--- NOTE | 2019-07-03 09:41 | PC.OT ---
OT EVALUATION ORDERS RECEIVED. PATIENT IS CURRENTLY BEING TESTED FOR COVID; WILL HOLD EVALUATION UNTIL RESULTS.
--- NOTE | 2019-07-03 14:04 | PC.PT ---
I have checked on patient twice holding for covid results. Nursing reports confusion over tesitng. She reports that she was to be tested but that it got cancelled somehow. They are continueing to wait on testing. I checked back at roughly 1:30 PM and still same result with hours until test results return. Will continue to hold PT until results at this time.
[2019-07-03] MEDS: lactated ringers 1,000 ML 50 ML IV (14:08)
--- NOTE | 2019-07-03 15:12 | P.PN_ITS ---
Subjective Subjective: Interval history: Patient awake in bed at time of exam. She reported improved vomiting, continued intermittent nausea. Tolerating clear liquid diet at this time, has only had small bowel movement with assistance of RN Vitals/I&O/Wt Last Vital Signs Temp 97.3 F L 07/03/19 15:00 Pulse 88 07/03/19 15:05 Resp 22 H 07/03/19 15:05 BP 123/94 07/03/19 15:05 Pulse Ox 100 07/03/19 15:05 07/03/19 07/03/19 07/03/19 06:59 14:59 22:59 Intake Total 530 / 820 1355.833 / 1355.833 Output Total 150 / 150 300 / 300 Balance 380 / 670 1055.833 / 1055.833 Weight last 48 hrs Weight 50.802 kg Weight 49.895 kg Physical Exam Const: COMMON NORMALS: oriented x3 and alert GENERAL APPEARANCE: cooperative NUTRITIONAL APPEARANCE: thin ORIENTATION/CONSCIOUSNESS: Yes awake, Yes oriented to person, Yes oriented to place and Yes oriented to time HENMT: COMMON NORMALS: normocephalic and head/scalp atraumatic HEAD & SCALP: normocephalic and atraumatic Eye: COMMON NORMALS: PERRL PUPIL: Yes PERRL Neck/C-Spine: COMMON NORMALS: supple GENERAL: Yes normal visual inspection Resp: COMMON NORMALS: normal respiratory effort and clear to auscultation bilaterally EFFORT & INSPECTION: Yes able to speak in complete sentences AUSCULTATION: clear to auscultation bilaterally, no rhonchi and no wheezes Cardio: COMMON NORMALS: regular rate, regular rhythm and no murmurs RATE: regular rate RHYTHM: regular rhythm GI: COMMON NORMALS: non-tender INSPECTION: No abdominal distension OTHER: Soft, nontender, hypoactive bowel sounds : COMMON NORMALS: Yes no CVA tenderness BLADDER/KIDNEY EXAM: Yes no CVA tenderness Back/Pelvis: COMMON NORMALS: no CVA tenderness Extremity: COMMON NORMALS: no clubbing, cyanosis or edema and no calf tenderness Neuro: COMMON NORMALS: oriented x3, CN's II-XII intact bilaterally, moves all extremities and no focal motor deficits SENSORIUM/ORIENTATION: Yes alert, Yes oriented to person, Yes oriented to place and Yes oriented to time SPEECH: speech normal Psych: COMMON NORMALS: mental status grossly normal and cooperative Skin: COMMON NORMALS: no rashes or lesions noted GENERAL SKIN EXAM: no rashes or lesions noted Data : 07/03/19 04:30 07/03/19 04:30 Micro: Microbiology 07/02/19 12:37 Blood Culture - Preliminary Blood NEGATIVE TO DATE 07/02/19 12:40 Blood Culture - Preliminary Blood NEGATIVE TO DATE 07/02/19 14:15 Urine Culture - Preliminary Urine,Clean Catch Gram Negative Rods A&P Assessment and plan (1) Fecal impaction in rectum: Continue Lactulose and MiraLAX Milk and molasses enema ordered, will give today CT A/P performed on admission, continues to have significant fecal impaction Chronic pain due to malignancy on daily opioids that is likely contributing to opioid-induced constipation Status: Acute (2) Vomiting: Intractable nausea and vomiting, improved today D/C IVF, increase diet to full liquid diet Believe that this is multifactorial related to patient's fecal impaction, underlying malignancy as well as urinary tract infection. Status: Acute Qualifiers: Nausea presence: with nausea Vomiting Intractability: non-intractable Vomiting type: unspecified Qualified Code(s): R11.2 - Nausea with vomiting, unspecified (3) Pneumonia: Patient has bilateral glaucoma glass opacifications on chest imaging from CT A/P. Place order for CXR COVID-19 negative Question of aspiration pneumonia due to presenting symptoms, speech therapy ordered for evaluation and treatment and will continue on IV Zosyn as above for cystitis along with aspiration coverage. Status: Acute Qualifiers: Laterality: bilateral Lung location: lower lobe of lung Pneumonia type: due to unspecified organism Qualified Code(s): J18.9 - Pneumonia, unspecified organism (4) Acute cystitis: Continue on IV Zosyn. History of ESBL E. coli, will follow with repeat cultures. Status: Acute Qualifiers: Hematuria presence: without hematuria Qualified Code(s): N30.00 - Acute cystitis without hematuria (5) Esophageal cancer, stage IV: Followed by Dr. Hilliard, hematology/oncology No longer on radiation at this time Status: Acute Additional A&P Information Bilateral lower extremity edema: 2+ pitting edema in the lower extremities bilaterally, ECHO pending Hypertension: Continue on lisinopril and metoprolol, hold hydrochlorothiazide at this time due to recurrent nausea and vomiting on admission. We will continue to monitor blood pressure and restart if indicated Previously diagnosed diabetes, now diet controlled due to weight loss secondary to metastatic disease Chronic pain on daily opioids, due to metastatic disease: Continue on home oxycodone Previously positive blood culture: Blood culture from 06/30/2019 shows gram- positive organisms, likely believed to be contamination as it is different organ ism than urine culture however will continue on IV antibiotics and repeat blood culture. 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
--- NOTE | 2019-07-03 15:18 | USCV_ITS ---
NOTE: Report was unsigned for reason: Order was edited. Original Signature date and time was: 07/03/19 @ 1757 Maria D Stubbs Age: 53 Gender: F : 1965 Exam Date: 07/03/2019 15:55 Ordering Phys: Sabi Wakefield DO Technologist: Denilson Byrd Exam Location: [facility] – [place] Indication: CHF Aortic Velocity @ [facility] (cm/s) CONCLUSIONS Normal left ventricular size and systolic function, EF 55 %. No regional wall motion abnormalities. Mild left ventricular hypertrophy. Type I diastolic dysfunction. Trace mitral valve regurgitation. There is no pericardial effusion. There are no intracardiac masses. There are no prior echocardiogram studies to compare. Dr Krista Aranda MD [facility] Edited by: ALEJANDRO Network Systems Analyst (Electronically Signed) Final Date: 03 July 2019 17:57 Amended: 06 July 2019 07:09 C GRISELD
--- NOTE | 2019-07-03 15:29 | XR_ITS ---
WS: [id number] CHEST XRAY TECHNIQUE: Portable chest. CLINICAL INFORMATION: pneumonia COMPARISON: June 06, 2019 FINDINGS: Heart: Normal cardiac silhouette. Lungs: Chronic emphysematous changes. Patchy right lower lobe and right middle lobe infiltrate or ate lectasis with air bronchograms. This is similar in appearance to the recent CT. Small right pleural e ffusion. Bones: Normal visualized bony structures. XR/XR chest 1V portable [id number] IMPRESSION: 1. Compressive atelectasis or infiltrate right middle lobe and right lower lob e with air bronchograms similar in appearance to the CT June 30, 2019. 2. Small right pleural effusion.
--- NOTE | 2019-07-03 16:43 | PC.NURSE ---
report sheet sent up for transfer at 1600, echo completed and xray. pain treated and mom enema given. patient able to hold fluid for a short time and then got up to [facility] and was set up to disempact herself. she got powell delivered. her right arm saline lock was d/deisi at this time as well due to her discomfort.
[2019-07-03] MEDS: enoxaparin 40 mg/0.4 mL Syringe SUBCUT (19:31)
[2019-07-04] VITALS (7 sets, daily range): BP systolic 100–158; BP diastolic 68–82; PULSE 80–91; RESP 16–18; TEMP 36.2–37.1; O2SAT 93–100
[2019-07-04] MEDS: piperacillin-tazobactam 3.375 GM in sodium chloride 0.9% (plus) 50 ML IV (04:03)
[2019-07-04] MEDS: oxyCODONE IR 30 mg Tablet 15 MG PO ×2 (04:17→08:44)
[2019-07-04 06:05] LABS: Anion Gap 12.8 (5-19); Blood Urea Nitrogen 9 mg/dL (6-20); Calcium 8.5 mg/dL (8.5-10.5); Carbon Dioxide 24 mmol/L (22-29); Chloride 106 mmol/L (98-107); Creatinine Clr Calc Pharmacy 91.1835; Glomerular Filtration Rate 103.8 mL/min (90-130); Glucose 95 mg/dL (65-115); Osmolality Calculated 284 mOsm/kg (285-295); Potassium 3.8 mmol/L (3.5-5.1); Sodium 139 mmol/L (136-145)
[2019-07-04] MEDS: polyethylene glycol 3350 Pkt 17 gm PO (08:42)
[2019-07-04] MEDS: fluticasone nasal spray 16gm Btl 1 SPRAY INTRANASAL (08:42)
[2019-07-04] MEDS: metoprolol succinate ER (24 HR) 25 mg Tablet 12.5 MG PO (08:43)
[2019-07-04] MEDS: lisinopril 10 mg Tablet PO (08:44)
[2019-07-04] MEDS: famotidine 20 mg Tablet PO (08:44)
--- NOTE | 2019-07-04 11:24 | PM.DCS ---
Discharge Providers Date of Admission: 07/03/19 15:10 Date of Discharge: July 04, 2019 Attending Provider at Admission: Sabi Wakefield DO Attending Provider at Discharge: Edson Bae MD Primary Care Provider: Antony Armstrong MD Diagnoses at Discharge Discharge Diagnosis (1) Fecal impaction in rectum: Status: Acute (2) Vomiting: Status: Acute Qualifiers: Nausea presence: with nausea Vomiting Intractability: non-intractable Vomiting type: unspecified Qualified Code(s): R11.2 - Nausea with vomiting, unspecified (3) Pneumonia: Status: Acute Qualifiers: Laterality: bilateral Lung location: lower lobe of lung Pneumonia type: due to unspecified organism Qualified Code(s): J18.9 - Pneumonia, unspecified organism (4) Acute cystitis: Status: Acute Qualifiers: Hematuria presence: without hematuria Qualified Code(s): N30.00 - Acute cystitis without hematuria (5) Esophageal cancer, stage IV: Status: Acute Problem details: 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 coli UTI, fecal impaction, opiate induced constipation. For her ESBL E. coli UTI, patient presented to the emergency room on 06/30/2019 with positive cultures, repeat cultures on this admission showed ESBL E. coli UTI that was quite sensitive, as this infection was thought to be uncomplicated patient was discharged on 5 remaining days of Macrobid. For patient's fecal impaction, opiate induced constipation, she received enemas, MiraLAX, lactulose as inpatient. She tolerated this well, had several bowel movements as inpatient. Patient was discharged with outpatient instructions to use MiraLAX daily until she has a regular bowel movement every day, then use as needed. In addition discharged on lactulose to be used every day until she has a regular bowel movement every day, then use as needed. She was also discharged on bisacodyl. If patient continues to have constipation, she is to discuss with her outpatient physician about possible lubiprostone therapy. Patient was also found to have bilateral groundglass opacities on imaging, COVID-19 was negative, there were concerns for aspiration pneumonia, patient was discharged on Augmentin. Physical Exam Const: COMMON NORMALS: no apparent distress and oriented x3 HENMT: COMMON NORMALS: normocephalic HEAD & SCALP: normocephalic Neck/C-Spine: COMMON NORMALS: full ROM, no lymphadenopathy, no JVD and thyroid normal THYROID: thyroid normal Lymph: LYMPHATIC: no lymphadenopathy noted Resp: COMMON NORMALS: normal respiratory effort, no retractions, no use of accessory muscles and clear to auscultation bilaterally AUSCULTATION: clear to auscultation bilaterally Cardio: COMMON NORMALS: no JVD, regular rate, regular rhythm, S1 normal heart sound, S2 normal heart sound, no gallops, no clicks and no murmurs RATE: regular rate RHYTHM: regular rhythm HEART SOUNDS: S1 normal and S2 normal GI: COMMON NORMALS: normal to inspection, nondistended, normoactive bowel sounds, soft to palpation, non-tender and no hepatosplenomegaly PALPATION: Yes soft and Yes no hepatosplenomegaly Extremity: COMMON NORMALS: normal to inspection, full ROM and no pedal edema Neuro: COMMON NORMALS: oriented x3 Psych: COMMON NORMALS: mental status grossly normal, thought process normal and cooperative THOUGHT PROCESS: normal thought process Discharge Data Data Completed and Pending: Completed Studies During Hospitalization Category Date Time Status CT abdomen pelvis w con* [id number] Urge nt Cat Scan 07/02/19 12:13 Completed XR chest 1V sandra ble [id number] Routine Exams 07/03/19 15:29 Completed Pending at discharge Category Date Time Status Blood Culture Sta t Lab 07/02/19 12:40 Results Urine Culture Sta t Lab 07/02/19 14:15 Results CV echo complete* [id number] Routine Ultrasound 07/03/19 15:18 Taken Labs from last 24 hours 07/04/19 07/02/19 05:35 15:20 Sodium 139 Potassium 3.8 Chloride 106 Carbon Dioxide 24 Anion Gap 12.8 BUN 9 Creatinine 0.6 GFR Calculation 103.8 Glucose 95 Calculated Osmolal ity 284 L Calcium 8.5 Nasal/Oral COVID-1 9 PCR See comment Vitals: Last Vital Signs Temp 98.8 F 07/04/19 08:00 Pulse 91 07/04/19 08:00 Resp 16 07/04/19 08:00 BP 112/78 07/04/19 08:00 Pulse Ox 96 07/04/19 08:00 Discharge Plan Discharge Patient Disposition: Home, Self-Care Condition: Stable Prescriptions: New Miralax 17 gram Powder In Packet 17 g PO DAILY 30 Days Qty: 30 RF: 0 lactulose 20 gram/30 mL Solution 10 g PO DAILY PRN (Reason: constipation) 30 Days Qty: 1200 RF: 0 bisacodyl 5 mg Tablet,Delayed Release (Dr/Ec) 10 mg PO DAILY PRN (Reason: Constipation) 30 Days Qty: 30 RF: 0 Macrobid 100 mg capsule 100 mg PO BID 5 Days Qty: 10 RF: 0 Augmentin 875-125 mg tablet 1 tab PO BID 5 Days Qty: 10 RF: 0 Continued oxycodone 15 mg tablet 15 mg PO Q4H PRN (Reason: Pain) RF: 0 famotidine 20 mg tablet 20 mg PO BID RF: 0 lisinopril 10 mg tablet 10 mg PO DAILY RF: 0 metoprolol succinate 25 mg tablet extended release 24 hr 12.5 mg PO DAILY RF: 0 fluticasone propionate 50 mcg/actuation spray,suspension 1 spray INTRANASAL DAILY RF: 0 Held hydrochlorothiazide 12.5 mg Tablet 12.5 mg PO DAILY RF: 0 Hold Instructions: Resume on 07/09/19. hold until seen by primary care Discharge Orders: Discharge Order (Routine); Ordered 07/04/19 Ordered By: Edson Bae Referrals: Antony Armstrong MD [Primary Care Provider] - 4-7 days (Please call Saturday to set up a follow up appointment) Discharge Diet: Advance as tolerated Discharge Activity: Resume usual activity Patient Instructions: Constipation (DC), Fecal Impaction (GEN) Activity Restrictions/Additional Instructions: -Please use Macrobid as prescribed for acute cystitis -Please use Augmentin as prescribed for aspiration pneumonia -Please continue to hold hydrochlorothiazide until seen by primary care -For constipation and fecal impaction, please use MiraLAX once daily until you have a regular bowel movement, then use every day as needed -Use bisacodyl as needed for constipation -Use lactulose daily until you have a regular bowel movement, then use as needed -Follow-up with primary care in 1 week Discharge Attestations Time Spent in Discharge Care*: less than 30 min Quality Metrics Clinical Quality Measures During this hospital stay, did patient experience: None Coding Level of Care Code Acute Computer Programmer Analyst for Chg Fwd Diagnoses Fecal impaction in rectum K56.41 Vomiting R11.2 Nausea presence: with nausea Vomiting Intractability: non-intractable Vomiting type: unspecified Pneumonia J18.9 Laterality: bilateral Lung location: lower lobe of lung Pneumonia type: due to unspecified organism Acute cystitis N30.00 Hematuria presence: without hematuria Esophageal cancer, stage IV C15.9
--- NOTE | 2019-07-04 12:20 | PC.NURSE ---
Discharge to home, instructions given,prescriptions sent to [facility] in [place]. to main enterance via w/c to private vehicle.
== END 2019-07-04 12:20 | disposition home or self-care (01) | DRG 689 ==
LOC: ER 13:44 → ICU 07-03 06:23 → MEDSURG 07-03 18:32
PROVIDERS: Admitting Provider Family Medicine; Emergency Provider Emergency Medicine; Family Provider Family Medicine; PCP Family Medicine; Visit Provider Family Medicine
DX: N30.00 Acute cystitis without hematuria (principal); J69.0 Pneumonitis due to inhalation of food and vomit; C15.5 Malignant neoplasm of lower third of esophagus; K59.03 Drug induced constipation; T40.2X5A Adverse effect of other opioids, initial encounter; Y92.9 Unspecified place or not applicable; G89.3 Neoplasm related pain (acute) (chronic); Z92.3 Personal history of irradiation; I10 Essential (primary) hypertension; E11.9 Type 2 diabetes mellitus without complications; B96.20 Unspecified Escherichia coli [E. coli] as the cause of diseases classified elsewhere; Z79.891 Long term (current) use of opiate analgesic
CPT/HCPCS: 12345; 36415; 71045; 71260; 74177; 80048; 80053; 81001; 83605; 83630; 83690; 83735; 83880; 84443; 85025; 87040; 87077; 87086; 87186; 87205; 87635; 93005; 93306; 96361; 96365; 96367; 96372; 96374; 96375; 97161; 97165; 99282; 99283; 99284; G0378; J1100; J1170; J1650; J2405; J2543; J3490; J7030; J7040; Q9967

== ENCOUNTER 2019-07-06 07:42 | Emergency (ER) | payer MEDICARE, SELFPAY ==
[2019-07-06 07:51] VITALS: BMI 18.6
[2019-07-06 07:54] VITALS: BP 100/82; PULSE 95; RESP 18; TEMP 36.4; O2SAT 99
--- NOTE | 2019-07-06 07:58 | ED_ITS ---
HPI - General Adult General: Chief complaint: General Medical Stated complaint: WEAKNESS, BODY ACHES Time Seen by Provider: 07/06/19 07:48 History of Present Illness: HPI narrative: Patient is a 53-year-old female who comes to the ED with nausea, vomiting and body aches. Patient says symptoms started 2 to 3 days ago. Patient was recent recently hospitalized and discharged on July 03 with UTI and pneumonia. She was given prescriptions for Macrobid and Augmentin. Patient has not filled the antibiotic prescription yet because she did not have the money. Patient says she has not been able to eat or drink much for the last 2 or 3 days because of the nausea vomiting and abdominal pain. The abdominal pain is in lower part of the abdomen. Patient also having body aches and has been coughing. Associated symptoms: Reports nausea and vomiting; Deny chest pain, dyspnea, headache(s), rash or palpitations Review of Systems 2 Const: Reports: body aches and fatigue; Denies: fever or chills Eyes: Denies: change in vision or eye discomfort ENMT: Denies: throat pain, painful swallowing, nasal discharge or nasal congestion Card: Denies: chest pain, palpitations, edema, swelling of feet/ankles, shortness of breath on exertion or shortness of breath when lying down Resp: Reports: non-productive cough; Denies: shortness of breath or productive cough GI: Reports: abdominal pain, nausea, vomiting, diarrhea and constipation; Denies: blood in stool : Denies: flank pain, painful urination or blood in urine Musc: Denies: neck pain, back pain or extremity swelling Skin/Breast: Denies: rash or new lesion Neuro: Denies: headache, numbness in extremities or weakness in extremities PFSH ED PFSH: Medical History Biliary colic Cholecystitis Cholelithiasis Diverticulosis Esophageal cancer, stage IV 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, stage IVb GI bleeding History of diabetes mellitus HTN (hypertension) UTI (urinary tract infection) Surgical History History of cholecystectomy History of esophagogastroduodenoscopy (EGD) Family History Mother Congestive heart failure Social History Smoking and tobacco status: never smoked Alcohol intake: never Physical Exam Const: COMMON NORMALS: no apparent distress, oriented x3 and alert GENERAL APPEARANCE: cooperative and anxious HENMT: COMMON NORMALS: normocephalic HEAD & SCALP: normocephalic MOUTH: oral and palatal mucosa normal THROAT: posterior oropharynx normal and uvula midline Eye: COMMON NORMALS: PERRL PUPIL: Yes PERRL Neck/C-Spine: COMMON NORMALS: supple GENERAL: Yes normal visual inspection Lymph: LYMPHATIC: no lymphadenopathy noted (no cervical lymphadenopathy noted) Resp: COMMON NORMALS: normal respiratory effort, no retractions, no use of accessory muscles and clear to auscultation bilaterally EFFORT & INSPECTION: Yes able to speak in complete sentences and No respiratory distress AUSCULTATION: clear to auscultation bilaterally Cardio: COMMON NORMALS: regular rate, regular rhythm, S1 normal heart sound, S2 normal heart sound, no gallops, no clicks, no murmurs and peripheral pulses 2+ throughout RATE: regular rate RHYTHM: regular rhythm HEART SOUNDS: S1 normal and S2 normal PERIPHERAL PULSES: pulses 2+ throughout GI: COMMON NORMALS: normal to inspection, nondistended, normoactive bowel sounds, soft to palpation and no masses PALPATION: Yes soft and Yes tender Details: LLQ and RLQ : COMMON NORMALS: Yes no CVA tenderness BLADDER/KIDNEY EXAM: Yes no CVA tenderness Back/Pelvis: COMMON NORMALS: no CVA tenderness Extremity: COMMON NORMALS: normal to inspection and no pedal edema Neuro: COMMON NORMALS: oriented x3 and moves all extremities SENSORIUM/ORIENTATION: Yes alert Skin: COMMON NORMALS: no rashes or lesions noted GENERAL SKIN EXAM: no rashes or lesions noted and dry skin Course Vital Signs: Vital signs: Vital Signs Temperature 98.4 F 07/06/19 11:18 Pulse Rate 81 07/06/19 11:18 Respiratory Rate 16 07/06/19 11:18 Blood Pressure 107/75 07/06/19 11:18 Pulse Oximetry 95 07/06/19 11:18 MDM - General Adult MDM Narrative: Medical decision making narrative: Patient is a 53-year-old female who comes to the ED with abdominal pain nausea and vomiting. Patient was recently discharged from the hospital on July 03. She was sent home with a prescription for Augmentin and nitrofurantoin. These antibiotics were to treat pneumonia and UTI. Patient states that she has not picked those medications up from the pharmacy since discharge. Patient's vitals blood pressure 107/75, pulse 81, respirations 16, temperature 98.4 ?F, O2 saturation 95% on room air. Patient was showing no signs of any acute distress. CBC, CMP and lipase were all unremarkable. Urinalysis showed some bacteria and white and red blood cells. Influenza negative. Chest x-ray showed previously diagnosed right lower lung pneumonia. Patient had no episodes of emesis while here on the unit and improved after IV fluids and Zofran. Patient was then given IV Zosyn. Patient was discharged and told to fill her previously prescribed antibiotic prescriptions of Augmentin and Macrobid. I told her to follow-up with your PCP in 5 to 7 days for reevaluation. I told patient she can return to ED if symptoms worsen. Patient understood and agreed with plan. Lab Data: Attestation: I reviewed the patient's lab results. Labs: Lab Results 07/06/19 07/06/19 07/06/19 Range/Units 08:35 08:40 09:00 WBC 4.2 (4.0-10.0) 10^3/ uL RBC 4.06 L (4.1-5.3) 10^6/u L Hgb 11.6 (11.5-15.3) g/dL Hct 37.1 (37.0-47.0) % MCV 91.4 (81-99) fL MCH 28.6 (28.0-34.0) pg MCHC 31.3 (30.0-36.0) g/dL RDW 15.2 H (12.1-15.1) % Plt Count 244 (130-400) 10^3/c mm MPV 9.7 (7.4-10.4) fL Neut % (Auto) 72.8 % Lymph % (Auto) 18.2 % Briscoe % (Auto) 7.9 % Eos % (Auto) 0.2 % Baso % (Auto) 0.2 % Neut # (Auto) 3.0 (1.8-7.7) 10^3/u L Lymph # (Auto) 0.8 (0.8-4.8) 10^3/u L Briscoe # (Auto) 0.3 (0.2-0.9) 10^3/u L Eos # (Auto) 0.0 (0.0-0.8) 10^3/u L Baso # (Auto) 0.0 (0.0-0.1) 10^3/u L Nucleated RBC % (a uto) 0 % Nucleated RBCs # 0.0 /100WBC Sodium (136-145) mmol/L Potassium (3.5-5.1) mmol/L Chloride (98-107) mmol/L Carbon Dioxide (22-29) mmol/L Anion Gap (5-19) BUN (6-20) mg/dL Creatinine (0.5-0.9) mg/dL GFR Calculation (90-130) mL/min Glucose (65-115) mg/dL Calculated Osmolal ity (285-295) mOsm/k g Calcium (8.5-10.5) mg/dL Total Bilirubin (0.15-1.2) mg/dL AST (0-32) U/L ALT (0-33) U/L Alkaline Phosphata se (35-105) IU/L Total Protein (6.6-8.7) g/dL Albumin (3.5-5.2) g/dL Globulin (1.3-4.6) g/dL Lipase (13-60) U/L Urine Color Zaynab (Yellow) Urine Appearance Sl hazy (CLEAR) Urine pH 5.0 (5-7) Ur Specific Gravit y 1.025 (1.005-1.030) Urine Protein Trace (Negative) Urine Glucose (UA) Norm (Normal) Urine Ketones 1+ H (Negative) Urine Blood Trace H (Negative) Urine Nitrate Negative (Negative) Urine Bilirubin 1+ H (NEGATIVE) Urine Urobilinogen 8 H (Negative) mg/dL Ur Leukocyte Hanna ase 1+ H (Negative) Urine RBC 5-10 H (0-2) /hpf Urine WBC 10-15 H (0-5) /hpf Ur Squamous Epith Cells 25-40 H (0-5) Calcium Oxalate Cr ystal 25-40 H /hpf Urine Bacteria 2+ H (NONE) Influenza Type A A g Negative (Negative) Influenza Type B A g Negative (Negative) 07/06/19 Range/Units 09:00 WBC (4.0-10.0) 10^3/ uL RBC (4.1-5.3) 10^6/u L Hgb (11.5-15.3) g/dL Hct (37.0-47.0) % MCV (81-99) fL MCH (28.0-34.0) pg MCHC (30.0-36.0) g/dL RDW (12.1-15.1) % Plt Count (130-400) 10^3/c mm MPV (7.4-10.4) fL Neut % (Auto) % Lymph % (Auto) % Briscoe % (Auto) % Eos % (Auto) % Baso % (Auto) % Neut # (Auto) (1.8-7.7) 10^3/u L Lymph # (Auto) (0.8-4.8) 10^3/u L Briscoe # (Auto) (0.2-0.9) 10^3/u L Eos # (Auto) (0.0-0.8) 10^3/u L Baso # (Auto) (0.0-0.1) 10^3/u L Nucleated RBC % (a uto) % Nucleated RBCs # /100WBC Sodium 138 (136-145) mmol/L Potassium 3.4 L (3.5-5.1) mmol/L Chloride 102 (98-107) mmol/L Carbon Dioxide 27 (22-29) mmol/L Anion Gap 12.4 (5-19) BUN 9 (6-20) mg/dL Creatinine 0.5 (0.5-0.9) mg/dL GFR Calculation 128.1 (90-130) mL/min Glucose 94 (65-115) mg/dL Calculated Osmolal ity 282 L (285-295) mOsm/k g Calcium 8.5 (8.5-10.5) mg/dL Total Bilirubin 0.4 (0.15-1.2) mg/dL AST 14 (0-32) U/L ALT 9 (0-33) U/L Alkaline Phosphata se 81 (35-105) IU/L Total Protein 5.8 L (6.6-8.7) g/dL Albumin 2.5 L (3.5-5.2) g/dL Globulin 3.3 (1.3-4.6) g/dL Lipase 9 L (13-60) U/L Urine Color (Yellow) Urine Appearance (CLEAR) Urine pH (5-7) Ur Specific Gravit y (1.005-1.030) Urine Protein (Negative) Urine Glucose (UA) (Normal) Urine Ketones (Negative) Urine Blood (Negative) Urine Nitrate (Negative) Urine Bilirubin (NEGATIVE) Urine Urobilinogen (Negative) mg/dL Ur Leukocyte Hanan ase (Negative) Urine RBC (0-2) /hpf Urine WBC (0-5) /hpf Ur Squamous Epith Cells (0-5) Calcium Oxalate Cr ystal /hpf Urine Bacteria (NONE) Influenza Type A A g (Negative) Influenza Type B A g (Negative) Imaging Data^: CXR: Attestation: I personally reviewed and interpreted this imaging study as follows: Radiologist's impression: [place] [address] XRay Report Signed Patient: Maria D Stubbs Unit #: [id number] : [id number] Age/Sex: 53 / F ADM Date: 07/06/19 Loc: ER Room/Bed: Attending Dr: Ordering Provider/Ordering MD: David Ervin Date of Service: 07/06/19 Procedure(s): XR chest 1V portable [id number] Accession Number(s): [id number] Report Number: [id number] WS: [id number] PORTABLE CHEST HISTORY: cough COMPARISON: 07/03/2019 Partial atelectasis at the RIGHT lung base with obscuration the medial RIGHT diaphragm. Otherwise lungs are clear. Overall the aeration has slightly improved since 07/03/2019. No pleural effusion or pneumothorax. Cardiac size: Normal. Mediastinum/Aorta: Normal mediastinum. Sclerotic focus in the LEFT clavicle. XR/XR chest 1V portable [id number] IMPRESSION: Slightly improved aeration bilaterally. A node atelectasis or pneumonia at the medial RIGHT lung base. Dictated By: Kari Prabhakar DO Signed By: Kari Prabhakar DO Signed Date/Time: 07/06/19831 DD/ 9 Discharge Plan Discharge Patient Disposition: Home, Self-Care Clinical Impression: Acute cystitis Qualifiers: Hematuria presence: with hematuria Qualified Code(s): N30.01 - Acute cystitis with hematuria Pneumonia Qualifiers: Pneumonia type: due to unspecified organism Laterality: right Lung location: lower lobe of lung Qualified Code(s): J18.9 - Pneumonia, unspecified organism Condition: Stable Prescriptions: New Zofran 4 mg tablet 4 mg PO DAILY Qty: 14 RF: 0 No Action hydrochlorothiazide 12.5 mg Tablet 12.5 mg PO DAILY RF: 0 Hold Instructions: Resume on 07/09/19. hold until seen by primary care oxycodone 15 mg tablet 15 mg PO Q4H PRN (Reason: Pain) RF: 0 famotidine 20 mg tablet 20 mg PO BID RF: 0 lisinopril 10 mg tablet 10 mg PO DAILY RF: 0 metoprolol succinate 25 mg tablet extended release 24 hr 12.5 mg PO DAILY RF: 0 fluticasone propionate 50 mcg/actuation spray,suspension 1 spray INTRANASAL DAILY RF: 0 Miralax 17 gram Powder In Packet 17 g PO DAILY 30 Days Qty: 30 RF: 0 lactulose 20 gram/30 mL Solution 10 g PO DAILY PRN (Reason: constipation) 30 Days Qty: 1200 RF: 0 bisacodyl 5 mg Tablet,Delayed Release (Dr/Ec) 10 mg PO DAILY PRN (Reason: Constipation) 30 Days Qty: 30 RF: 0 Macrobid 100 mg capsule 100 mg PO BID 5 Days Qty: 10 RF: 0 Augmentin 875-125 mg tablet 1 tab PO BID 5 Days Qty: 10 RF: 0 Discharge Orders: Discharge Order (Routine); Ordered 07/06/19 Ordered By: David Ervin Referrals: Antony Armstrong MD [Primary Care Provider] - Discharge Diet: Regular Discharge Activity: Resume usual activity Patient Instructions: Urinary Tract Infection in Women (ED), Pneumonia (ED) Activity Restrictions/Additional Instructions: Call your PCP and set up an appointment for reevaluation 5 days. Fill previously prescribed prescriptions amoxicillin and Macrobid to treat pneumonia and UTI. I am also sending you with a prescription for Zofran that you can get filled and take as needed for nausea. Take Tylenol or ibuprofen as needed for pain or fevers. Drink plenty of fluids and stay hydrated. Discharge Date/Time: 07/06/19 11:15 Coding Level of Care Code ED Operations Support Coordinator for Chg Fwd Exam Comprehensive
--- NOTE | 2019-07-06 08:13 | XR_ITS ---
WS: [id number] PORTABLE CHEST HISTORY: cough COMPARISON: 07/03/2019 Partial atelectasis at the RIGHT lung base with obscuration the medial RIGHT diaphragm. Otherwise dontrell gs are clear. Overall the aeration has slightly improved since 07/03/2019. No pleural effusion or pneu mothorax. Cardiac size: Normal. Mediastinum/Aorta: Normal mediastinum. Sclerotic focus in the LEFT clavicle. XR/XR chest 1V portable [id number] IMPRESSION: Slightly improved aeration bilaterally. A node atelectasis or pneumonia at the medial RIGHT lung base.
[2019-07-06] MEDS: ondansetron 2 mg/ML SDV 2 mL 4 MG IVP (09:00)
[2019-07-06 09:12] LABS: Basophils % 0.2 %; Eosinophils % 0.2 %; Hematocrit 37.1 % (37.0-47.0); Hemoglobin 11.6 g/dL (11.5-15.3); Lymphocytes # 0.8 10^3/uL (0.8-4.8); Lymphocytes % 18.2 %; Mean Corpuscular HGB Conc 31.3 g/dL (30.0-36.0); Mean Corpuscular Hemoglobin 28.6 pg (28.0-34.0); Mean Corpuscular Volume 91.4 fL (81-99); Mean Platelet Volume 9.7 fL (7.4-10.4); Monocytes # 0.3 10^3/uL (0.2-0.9); Monocytes % 7.9 %; Neutrophils % 72.8 %; Nucleated Red Blood Cells % 0 %; Platelet Count 244 10^3/cmm (130-400); Red Blood Count 4.06 10^6/uL (4.1-5.3); Red Cell Distribution Width 15.2 % (12.1-15.1); White Blood Count 4.2 10^3/uL (4.0-10.0)
[2019-07-06] MEDS: sodium chloride 0.9% 500 ML IV (09:15)
[2019-07-06 09:18] LABS: Bilirubin Urine 1+ (NEGATIVE); Blood Urine Trace (Negative); Glucose Urine UA Norm (Normal); Ketones Urine 1+ (Negative); Leukocyte Esterase Urine 1+ (Negative); Nitrate Urine Negative (Negative); Protein Urine Trace (Negative); Specific Gravity, Urine 1.025 (1.005-1.030); Urine Appearance SL Hazy (CLEAR); Urine Color Amber (Yellow); Urobilinogen Urine 8 mg/dL (Negative)
[2019-07-06 09:22] LABS: Alanine Aminotransferase 9 U/L (0-33); Albumin Level 2.5 g/dL (3.5-5.2); Alkaline Phosphatase 81 IU/L (35-105); Anion Gap 12.4 (5-19); Aspartate Amino Transferase 14 U/L (0-32); Blood Urea Nitrogen 9 mg/dL (6-20); Calcium 8.5 mg/dL (8.5-10.5); Carbon Dioxide 27 mmol/L (22-29); Chloride 102 mmol/L (98-107); Globulin 3.3 g/dL (1.3-4.6); Glomerular Filtration Rate 128.1 mL/min (90-130); Glucose 94 mg/dL (65-115); Lipase 9 U/L (13-60); Osmolality Calculated 282 mOsm/kg (285-295); Potassium 3.4 mmol/L (3.5-5.1); Sodium 138 mmol/L (136-145); Total Bilirubin 0.4 mg/dL (0.15-1.2); Total Protein 5.8 g/dL (6.6-8.7)
[2019-07-06 09:38] LABS: Influenza A by IFA Negative (Negative); Influenza B by IFA Negative (Negative)
[2019-07-06 09:44] LABS: Add Urine Culture? No; Bacteria Urine 2+; Calcium Oxalate Crystals Urine 25-40 /hpf; Squamous Epithelial Cell Urine 25-40 (0-5)
[2019-07-06 09:53] VITALS: PULSE 78; RESP 16; O2SAT 96
[2019-07-06 10:27] VITALS: RESP 18
[2019-07-06] MEDS: morphine 4 mg/mL SDV 1 mL IVP (10:27)
[2019-07-06] MEDS: piperacillin-tazobactam 3.375 GM in sodium chloride 0.9% (plus) 50 ML IV (10:28)
[2019-07-06 11:18] VITALS: BP 107/75; PULSE 81; RESP 16; TEMP 36.9; O2SAT 95
== END 2019-07-06 11:15 | disposition home or self-care (01) ==
PROVIDERS: Emergency Provider Physician Assistant; Family Provider Family Medicine; PCP Family Medicine
DX: J18.9 Pneumonia, unspecified organism (principal); N30.01 Acute cystitis with hematuria; Z85.01 Personal history of malignant neoplasm of esophagus; I10 Essential (primary) hypertension; Z87.440 Personal history of urinary (tract) infections; E11.9 Type 2 diabetes mellitus without complications
CPT/HCPCS: 12345; 36415; 71045; 80053; 81001; 83690; 85025; 87040; 87804; 96365; 96375; 99283; 99284; J2270; J2405; J2543; J7030

== ENCOUNTER 2019-07-07 09:54 | Outpatient (CLI) | payer MEDICARE, SELFPAY ==
[2019-07-07] MEDS: sodium chloride 0.9% 1,000 ML 999 ML IV (10:12)
== END 2019-07-07 09:55 | disposition home or self-care (01) ==
LOC: ONCMED 09:54
PROVIDERS: Family Provider Family Medicine; PCP Family Medicine; Visit Provider Internal Medicine Medical Oncology
DX: C15.5 Malignant neoplasm of lower third of esophagus (principal); C79.51 Secondary malignant neoplasm of bone
CPT/HCPCS: 96360; J7030

== ENCOUNTER 2019-07-09 14:01 | Outpatient (CLI) | payer MEDICARE, SELFPAY ==
[2019-07-09] MEDS: sodium chloride 0.9% 1,000 ML 999 ML IV (14:35)
== END 2019-07-09 14:02 | disposition home or self-care (01) ==
LOC: ONCMED 14:01
PROVIDERS: Family Provider Family Medicine; PCP Family Medicine; Visit Provider Internal Medicine Medical Oncology
DX: C15.5 Malignant neoplasm of lower third of esophagus (principal); C79.51 Secondary malignant neoplasm of bone
CPT/HCPCS: 96360; J7030

== ENCOUNTER 2019-07-09 18:21 | Emergency (ER) | payer MEDICARE, SELFPAY ==
[2019-07-09 18:31] VITALS: BP 139/99; PULSE 86; RESP 18; TEMP 36.6; O2SAT 98; BMI 19.3
--- NOTE | 2019-07-09 18:51 | XR_ITS ---
WS: [id number] SACRUM AND COCCYX TECHNIQUE: AP angled and lateral views. HISTORY: fall/pain COMPARISON: None available. The entire sacrum is not been included on the AP projection was included on the AP film of the pelvis . No fracture or malalignment. Visualized bony structures are unremarkable. Acetabular rim and RIGHT side. XR/XR sacrum coccyx min 2V [id number] IMPRESSION: No sacral or coccygeal fractures are identified.
--- NOTE | 2019-07-09 18:51 | XR_ITS ---
WS: [id number] PELVIS AND RIGHT HIP HISTORY: fall; pain COMPARISON: None available. Right hip: No acute fracture or dislocation. Lytic area measuring 13 mm centered in the proximal RIGH T femoral cortex. Acetabular osteophytic ridging is moderate. Mild narrowing of the LEFT hip joint. No additional lytic areas within the bones of the pelvis. XR/XR hip RT 2-3V wo/w pel* 23300 IMPRESSION: 1. No hip fracture. 2. Lytic area proximal RIGHT femur cortex. Suspicious for metastatic lesion.
--- NOTE | 2019-07-09 18:52 | W.ED.FALL ---
HPI - Fall General: Chief Complaint: Fall Stated Complaint: FALL/HIP AND BACK PAIN Time Seen by Provider: 07/09/19 18:39 Source: patient Mode of arrival: ambulatory Limitations: no limitations History of Present Illness: HPI Narrative: Patient is a 53-year-old female who presents to ED today for evaluation following a fall. Patient tells me she normally uses a cane due to problems with her balance however was outside and for whatever reason thought she could ambulate without it. Patient states she lost her balance and fell. She denies chest pain, difficulty breathing, lightheadedness/dizziness prior to the fall. Patient tells me that when she fell she injured her right hip and tailbone. She was able to ambulate back to the house to call for help. Patient denies striking her head, LOC, denies neck/mid to lower back pain. MD complaint: fall Onset (ago): hour(s) Fall from: standing Fall witnessed: no Place fall occurred: home Loss of consciousness: None Prolonged down time: no Symptoms prior to fall: none Context: other (lost balance) Associated symptoms-after fall: Reports no associated symptoms and difficulty walking (chronically ); Denies abdominal pain, chest pain, headache(s), hematuria, lightheadedness or neck pain Review of Systems Const: Denies: fever or chills Card: Denies: chest pain, palpitations, irregular heart rhythm, edema, lightheadedness, syncope or pre-syncope Resp: Denies: shortness of breath GI: Denies: abdominal pain : Denies: flank pain, painful urination or blood in urine Musc: Reports: joint pain (R hip pain) and other ( tailbone pain ); Denies: neck pain or back pain Neuro: Reports: difficulty walking (chronically ); Denies: headache, numbness in extremities, weakness in extremities or changes in sensation PFS ED PFSH: Social History Smoking and tobacco status: never smoked Alcohol intake: never Physical Exam Const: COMMON NORMALS: no apparent distress, average body habitus, oriented x3, no limitations, healthy appearing, alert and well nourished Neck/C-Spine: COMMON NORMALS: full ROM CERVICAL SPINE: No cervical spine tenderness and No paracervical muscle tenderness Resp: COMMON NORMALS: normal respiratory effort and clear to auscultation bilaterally AUSCULTATION: clear to auscultation bilaterally Cardio: COMMON NORMALS: regular rate and regular rhythm RATE: regular rate RHYTHM: regular rhythm Back/Pelvis: COMMON NORMALS: thoracic and lumbar spine normal to inspection, no thoracic nor lumbar tenderness and thoraco-lumbar ROM normal COCCYX: tenderness Extremity: GENERAL: Yes normal exam except as noted RIGHT LOWER EXTREMITY: Yes hip joint (TTP lateral/posterior; can flex LE off table) Neuro: COMMON NORMALS: oriented x3, moves all extremities, no focal motor deficits and no sensory deficits noted SENSORIUM/ORIENTATION: Yes alert Skin: COMMON NORMALS: no rashes or lesions noted GENERAL SKIN EXAM: no rashes or lesions noted Course ED course: pt was ambulatory w/o difficulty with use of a walker to and from the bathroom Vital Signs: Vital signs: Vital Signs Temperature 97.9 F 07/09/19 18:31 Pulse Rate 86 07/09/19 18:31 Respiratory Rate 18 07/09/19 18:31 Blood Pressure 139/99 07/09/19 18:31 Pulse Oximetry 98 07/09/19 18:31 MDM - Fall Imaging Data^: XR sacrum/coccyx: My impression: no fxs/dislocations noted XR R hip/pelvis: My impression: no acute fxs noted Discharge Plan Discharge Patient Disposition: Home, Self-Care Clinical Impression: Fall Qualifiers: Encounter type: initial encounter Qualified Code(s): W19.XXXA - Unspecified fall, initial encounter Coccyx contusion Qualifiers: Encounter type: initial encounter Qualified Code(s): S30.0XXA - Contusion of lower back and pelvis, initial encounter Contusion of hip, right Qualifiers: Encounter type: initial encounter Qualified Code(s): S70.01XA - Contusion of right hip, initial encounter Condition: Stable Prescriptions: No Action hydrochlorothiazide 12.5 mg Tablet 12.5 mg PO DAILY RF: 0 Hold Instructions: Resume on 07/09/19. hold until seen by primary care ondansetron HCl [Zofran] 4 mg tablet 4 mg PO DAILY Qty: 14 RF: 0 amoxicillin-pot clavulanate 875-125 mg tablet 1 tab PO DAILY RF: 0 nitrofurantoin monohyd/m-cryst 100 mg capsule 100 mg PO DAILY RF: 0 oxycodone 15 mg tablet 15 mg PO Q4H PRN (Reason: Pain) RF: 0 famotidine 20 mg tablet 20 mg PO BID RF: 0 lisinopril 10 mg tablet 10 mg PO DAILY RF: 0 metoprolol succinate 25 mg tablet extended release 24 hr 12.5 mg PO DAILY RF: 0 fluticasone propionate 50 mcg/actuation spray,suspension 1 spray INTRANASAL DAILY RF: 0 Discharge Orders: Discharge Order (Routine); Ordered 07/09/19 Ordered By: Adriana Oconnell Referrals: Antony Armstrong MD [Primary Care Provider] - Discharge Diet: Usual diet Discharge Activity: Increase activity as tolerated Patient Instructions: Contusion in Adults (ED), Fall Prevention (ED) Activity Restrictions/Additional Instructions: USE YOUR CANE AT ALL TIMES FOR AMBULATION. Coding Level of Care Code ED Blender/Braze Applicator for Pancho Fwd Exam Comprehensive
[2019-07-09 20:37] VITALS: BP 128/98; PULSE 102; RESP 18; O2SAT 100
== END 2019-07-09 20:38 | disposition home or self-care (01) ==
PROVIDERS: Emergency Provider Physician Assistant; Family Provider Family Medicine; PCP Family Medicine
DX: S30.0XXA Contusion of lower back and pelvis, initial encounter (principal); S70.01XA Contusion of right hip, initial encounter; W19.XXXA Unspecified fall, initial encounter
CPT/HCPCS: 12345; 72220; 73502; 99281; 99283

== ENCOUNTER 2019-07-24 03:01 | Emergency (ER) | payer MEDICARE, SELFPAY ==
[2019-07-24] VITALS (14 sets, daily range): BP systolic 124–135; BP diastolic 91–98; PULSE 89; RESP 16; TEMP 36.7; O2SAT 98–100; BMI 15.0
--- NOTE | 2019-07-24 03:09 | W.ED.GENADLT ---
HPI - General Adult General: Chief complaint: General Medical Stated complaint: R ARM PAIN; BACK PAIN; NO URINATION TODAY Time Seen by Provider: 07/24/19 03:03 Source: patient Mode of arrival: ambulatory Limitations: no limitations History of Present Illness: HPI narrative: 53-year-old female who has a history of chronic pain and esophageal cancer states she has been having full body pain over the last week. States she hurts all over and has no specific spot that hurts she states she hurts head to toe. States she also had nausea and feels dehydrated. She denies any worsening or improving factors. Associated symptoms: Reports nausea; Deny chest pain, dyspnea, headache(s), rash or vomiting Review of Systems Const: Denies: fever(s), chills, body aches or change in appetite Eyes: Denies: blurry vision or eye discomfort ENMT: Denies: throat pain or dental pain Card: Denies: chest pain Resp: Denies: dyspnea GI: Reports: nausea; Denies: abdominal pain, vomiting or diarrhea : Denies: dysuria Musc: Reports: joint pain; Denies: neck pain or back pain Skin/Breast: Denies: rash Neuro: Denies: headache(s) Psych: Denies: depression Fidel/Lymph: Denies: easy bruising All/Imm: Denies: urticaria PFSH ED PFSH: Medical History Biliary colic Cholecystitis Cholelithiasis Diverticulosis Esophageal cancer, stage IV 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, stage IVb GI bleeding History of diabetes mellitus HTN (hypertension) UTI (urinary tract infection) Surgical History History of cholecystectomy History of esophagogastroduodenoscopy (EGD) Family History Mother Congestive heart failure Social History Smoking and tobacco status: never smoked Alcohol intake: never Physical Exam Const: COMMON NORMALS: no acute distress, patient oriented x3 and healthy appearing HENMT: COMMON NORMALS: normocephalic and atraumatic HEAD & SCALP: normocephalic and atraumatic Eye: COMMON NORMALS: Equal, round and reactive pupils present and EOMs intact bilaterally PUPIL: Yes Equal, round and reactive pupils present Neck/C-Spine: COMMON NORMALS: full ROM and supple Chest: COMMONS NORMALS: normal inspection of the chest and normal palpation of entire chest wall Resp: COMMON NORMALS: normal respiratory effort, No retractions, No use of accessory muscles and clear to auscultation bilaterally AUSCULTATION: clear to auscultation bilaterally Cardio: COMMON NORMALS: regular rate, regular rhythm and No murmurs present (Cardio) RATE: regular rate RHYTHM: regular rhythm GI: COMMON NORMALS: Normal to inspection, nondistended, normoactive bowel sounds present, Soft to palpation, non-tender and no masses PALPATION: Yes Soft to palpation Extremity: COMMON NORMALS: normal to inspection and full ROM Neuro: COMMON NORMALS: patient oriented x3, moves all extremities and no focal motor deficits Psych: COMMON NORMALS: mental status grossly normal, Normal thought process present and cooperative THOUGHT PROCESS: Normal thought process present Skin: COMMON NORMALS: no rashes or lesions noted and no wounds GENERAL SKIN EXAM: no rashes or lesions noted Course Vital Signs: Vital signs: Vital Signs Temperature 98.0 F 07/24/19 03:08 Pulse Rate 89 07/24/19 03:08 Respiratory Rate 16 07/24/19 04:19 Blood Pressure 135/98 07/24/19 04:00 Pulse Oximetry 99 07/24/19 03:50 MDM - General Adult MDM Narrative: Medical decision making narrative: Patient presents with chronic pain. She feels much improved after pain meds. Patient given IV fluids well. Patient's lab work here is normal with no signs of infection or severe dehydration. Patient is stable for discharge and is to return if worsening Lab Data: Labs: Lab Results 07/24/19 07/24/19 Range/Units 03:30 03:30 WBC 3.7 L (4.0-10.0) 10^3/ uL RBC 4.08 L (4.1-5.3) 10^6/u L Hgb 11.2 L (11.5-15.3) g/dL Hct 36.5 L (37.0-47.0) % MCV 89.5 (81-99) fL MCH 27.5 L (28.0-34.0) pg MCHC 30.7 (30.0-36.0) g/dL RDW 15.0 (12.1-15.1) % Plt Count 213 (130-400) 10^3/c mm MPV 9.4 (7.4-10.4) fL Neut % (Auto) 64.3 % Lymph % (Auto) 27.6 % [place] % (Auto) 7.0 % Eos % (Auto) 0.3 % Baso % (Auto) 0.5 % Neut # (Auto) 2.4 (1.8-7.7) 10^3/u L Lymph # (Auto) 1.0 (0.8-4.8) 10^3/u L [place] # (Auto) 0.3 (0.2-0.9) 10^3/u L Eos # (Auto) 0.0 (0.0-0.8) 10^3/u L Baso # (Auto) 0.0 (0.0-0.1) 10^3/u L Nucleated RBC % (a uto) 0 % Nucleated RBCs # 0.0 /100WBC Sodium 135 L (136-145) mmol/L Potassium 4.0 (3.5-5.1) mmol/L Chloride 98 (98-107) mmol/L Carbon Dioxide 28 (22-29) mmol/L Anion Gap 13.0 (5-19) BUN 13 (6-20) mg/dL Creatinine 0.5 (0.5-0.9) mg/dL GFR Calculation 128.1 (90-130) mL/min Glucose 84 (65-115) mg/dL Calculated Osmolal ity 275 L (285-295) mOsm/k g Calcium 8.3 L (8.5-10.5) mg/dL Total Bilirubin 0.4 (0.15-1.2) mg/dL AST 12 (0-32) U/L ALT 7 (0-33) U/L Alkaline Phosphata se 114 H (35-105) IU/L Total Protein 6.1 L (6.6-8.7) g/dL Albumin 3.0 L (3.5-5.2) g/dL Globulin 3.1 (1.3-4.6) g/dL Lipase 25 (13-60) U/L Discharge Plan Discharge Patient Disposition: Home, Self-Care Clinical Impression: Chronic pain Qualifiers: Chronic pain type: other chronic pain Qualified Code(s): G89.29 - Other chronic pain Condition: Stable Prescriptions: No Action hydrochlorothiazide 12.5 mg Tablet 12.5 mg PO DAILY RF: 0 Hold Instructions: Resume on 07/09/19. hold until seen by primary care ondansetron HCl [Zofran] 4 mg tablet 4 mg PO DAILY Qty: 14 RF: 0 amoxicillin-pot clavulanate 875-125 mg tablet 1 tab PO DAILY RF: 0 nitrofurantoin monohyd/m-cryst 100 mg capsule 100 mg PO DAILY RF: 0 oxycodone 15 mg tablet 15 mg PO Q4H PRN (Reason: Pain) RF: 0 famotidine 20 mg tablet 20 mg PO BID RF: 0 lisinopril 10 mg tablet 10 mg PO DAILY RF: 0 metoprolol succinate 25 mg tablet extended release 24 hr 12.5 mg PO DAILY RF: 0 fluticasone propionate 50 mcg/actuation spray,suspension 1 spray INTRANASAL DAILY RF: 0 Discharge Orders: Discharge Order (Routine); Ordered 07/24/19 Ordered By: Eboni Crook Referrals: Antony Armstrong MD [Primary Care Provider] - 4-7 days Discharge Diet: Advance as tolerated Discharge Activity: Resume usual activity Patient Instructions: Pain Management Coding Level of Care Code ED Consumer Loan Processor for Pancho Fwd Exam Comprehensive
[2019-07-24] MEDS: morphine 4 mg/mL SDV 1 mL IVP (03:24)
[2019-07-24] MEDS: sodium chloride 0.9% 1,000 ML 999 ML IV (03:26)
[2019-07-24] MEDS: ondansetron 2 mg/ML SDV 2 mL 4 MG IVP (03:26)
[2019-07-24 03:46] LABS: Basophils % 0.5 %; Eosinophils % 0.3 %; Hematocrit 36.5 % (37.0-47.0); Hemoglobin 11.2 g/dL (11.5-15.3); Lymphocytes % 27.6 %; Mean Corpuscular HGB Conc 30.7 g/dL (30.0-36.0); Mean Corpuscular Hemoglobin 27.5 pg (28.0-34.0); Mean Corpuscular Volume 89.5 fL (81-99); Mean Platelet Volume 9.4 fL (7.4-10.4); Monocytes # 0.3 10^3/uL (0.2-0.9); Neutrophils # 2.4 10^3/uL (1.8-7.7); Neutrophils % 64.3 %; Nucleated Red Blood Cells % 0 %; Platelet Count 213 10^3/cmm (130-400); Red Blood Count 4.08 10^6/uL (4.1-5.3); White Blood Count 3.7 10^3/uL (4.0-10.0)
[2019-07-24 04:11] LABS: Alanine Aminotransferase 7 U/L (0-33); Alkaline Phosphatase 114 IU/L (35-105); Aspartate Amino Transferase 12 U/L (0-32); Blood Urea Nitrogen 13 mg/dL (6-20); Calcium 8.3 mg/dL (8.5-10.5); Carbon Dioxide 28 mmol/L (22-29); Chloride 98 mmol/L (98-107); Creatinine Clr Calc Pharmacy 81.9295; Globulin 3.1 g/dL (1.3-4.6); Glomerular Filtration Rate 128.1 mL/min (90-130); Glucose 84 mg/dL (65-115); Lipase 25 U/L (13-60); Osmolality Calculated 275 mOsm/kg (285-295); Sodium 135 mmol/L (136-145); Total Bilirubin 0.4 mg/dL (0.15-1.2); Total Protein 6.1 g/dL (6.6-8.7)
[2019-07-24] MEDS: diphenhydrAMINE 50 mg/mL SDV 1mL IVP (04:18)
[2019-07-24] MEDS: HYDROmorphone 1 mg/mL INJ 1 mL IVP (04:19)
== END 2019-07-24 04:42 | disposition home or self-care (01) ==
PROVIDERS: Emergency Provider Emergency Medicine; Family Provider Family Medicine; PCP Family Medicine
DX: G89.29 Other chronic pain (principal); C15.9 Malignant neoplasm of esophagus, unspecified; E11.9 Type 2 diabetes mellitus without complications; I10 Essential (primary) hypertension
CPT/HCPCS: 12345; 80053; 83690; 85025; 96361; 96374; 96375; 99282; 99283; J1170; J1200; J2270; J2405; J7030

== ENCOUNTER 2019-08-01 20:54 | Inpatient (IN) | payer MEDICARE, SELFPAY ==
[2019-08-01] VITALS (12 sets, daily range): BP systolic 109–128; BP diastolic 78–96; PULSE 78–100; RESP 18; TEMP 36.3; O2SAT 97–99; BMI 17.4
--- NOTE | 2019-08-01 21:51 | ED_ITS ---
HPI - General Adult General: Chief complaint: General Medical Stated complaint: feels like yuck Time Seen by Provider: 08/01/19 21:51 Source: patient Mode of arrival: ambulatory Limitations: no limitations History of Present Illness: HPI narrative: Patient comes in today for complaints of malaise. Patient appears chronically ill. Patient has stage IV esophageal cancer. Patient reports declining condition over the last 2 to 3 days. Patient is also noticed swelling to the left arm. 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, stage IVb GI bleeding History of diabetes mellitus HTN (hypertension) UTI (urinary tract infection) Surgical History History of cholecystectomy History of esophagogastroduodenoscopy (EGD) Family History Mother Congestive heart failure Social History Smoking and tobacco status: never smoked Alcohol intake: never Physical Exam Const: COMMON NORMALS: no acute distress and patient oriented x3 GENERAL APPEARANCE: cooperative HENMT: COMMON NORMALS: normocephalic, TM's normal bilaterally and Normal external nose present HEAD & SCALP: normal to inspection and normocephalic NOSE: Normal external nose present TYMPANIC MEMBRANE: TM's normal bilaterally MOUTH: Normal oral and palatal mucosa present THROAT: posterior oropharynx normal Eye: GENERAL EYE: appearance normal, both eyes and all related structures Neck/C-Spine: COMMON NORMALS: full ROM Lymph: LYMPHATIC: no lymphadenopathy noted Chest: COMMONS NORMALS: normal inspection of the chest Resp: COMMON NORMALS: normal respiratory effort EFFORT & INSPECTION: Yes able to speak in complete sentences Cardio: COMMON NORMALS: regular rate and regular rhythm RATE: regular rate RHYTHM: regular rhythm GI: PALPATION: Yes Tenderness to palpation present (GI) : COMMON NORMALS: Yes no CVA tenderness BLADDER/KIDNEY EXAM: Yes no CVA tenderness Back/Pelvis: COMMON NORMALS: no CVA tenderness and thoracic and lumbar spine normal to inspection Extremity: NARRATIVE EXTREMITY EXAM: Redness and swelling to the left extremity. Neuro: COMMON NORMALS: patient oriented x3 and moves all extremities Psych: COMMON NORMALS: mental status grossly normal and cooperative Skin: COMMON NORMALS: no rashes or lesions noted GENERAL SKIN EXAM: no rashes or lesions noted Course ED course: 1230, CTA report come back showing no pulmonary embolism. Patient does have a new pleural effusion. Patient has a significant DVT to the left upper extremity. Discussed exam with patient with recommendations for treatment. Patient's reports generalized weakness and does not feel that she is safe to be at home. Reviewed this with Dr. Foster who will discuss further with the patient and hospitalist regarding admission for urinary tract infection, DVT, stage 4 esophageal cancer and weakness. Vital Signs: Vital signs: Vital Signs Temperature 97.3 F L 08/01/19 21:34 Pulse Rate 83 08/02/19 00:55 Respiratory Rate 18 08/01/19 22:11 Blood Pressure 111/82 08/02/19 01:00 Pulse Oximetry 97 08/02/19 01:00 MDM - General Adult MDM Narrative: Medical decision making narrative: Patient came into the ER for persistent weakness for the last 3 days. Patient is also noticed increased swelling and tenderness to the left upper extremity. Exam notes redness and swelling to the left upper extremity, pulses are intact, prompt capillary refill is noted. Abdomen is mildly tender to palpation. Lungs are clear to auscultation. Vital signs are normal. Patient has a history of esophageal cancer stage IV. Differential diagnosis includes DVT, PE, pneumonia, urinary tract infection, sepsis. Urinalysis had a large amount of white blood cells reviewed the history noticed patient had a E. coli that was resistant. Ultrasound with venous study of the left extremity noted a significant DVT to the extremity. Patient was given 50 mg of Lovenox and was medicated with Zosyn in the emergency room for infection. Patient needs admission due to persistent weakness and deterioration of condition. Patient needs monitoring with laboratory values and nursing services. Patient was agreeable to plan. Dr. Apryl parker was consulted for admission along with Dr. Lazo. Lab Data: Labs: Lab Results 08/01/19 08/01/19 08/01/19 Range/Units 22:03 22:03 22:03 WBC 3.6 L (4.0-10.0) 10^3/ uL RBC 3.74 L (4.1-5.3) 10^6/u L Hgb 10.7 L (11.5-15.3) g/dL Hct 33.4 L (37.0-47.0) % MCV 89.3 (81-99) fL MCH 28.6 (28.0-34.0) pg MCHC 32.0 (30.0-36.0) g/dL RDW 14.7 (12.1-15.1) % Plt Count 168 (130-400) 10^3/c mm MPV 9.2 (7.4-10.4) fL Neut % (Auto) 65.4 % Lymph % (Auto) 25.1 % Osborne % (Auto) 8.3 % Eos % (Auto) 0.3 % Baso % (Auto) 0.6 % Neut # (Auto) 2.4 (1.8-7.7) 10^3/u L Lymph # (Auto) 0.9 (0.8-4.8) 10^3/u L Osborne # (Auto) 0.3 (0.2-0.9) 10^3/u L Eos # (Auto) 0.0 (0.0-0.8) 10^3/u L Baso # (Auto) 0.0 (0.0-0.1) 10^3/u L Nucleated RBC % (a uto) 0 % Nucleated RBCs # 0.0 /100WBC PT 13.40 H (10.5-13.3) SECO NDS INR 0.99 (0.8-1.2) APTT 30.7 (23.9-36.7) SECO NDS Sodium 134 L (136-145) mmol/L Potassium 4.2 (3.5-5.1) mmol/L Chloride 100 (98-107) mmol/L Carbon Dioxide 28 (22-29) mmol/L Anion Gap 10.2 (5-19) BUN 15 (6-20) mg/dL Creatinine 0.6 (0.5-0.9) mg/dL GFR Calculation 103.8 (90-130) mL/min Glucose 88 (65-115) mg/dL Calculated Osmolal ity 274 L (285-295) mOsm/k g Lactic Acid (0.5-2.2) mmol/L Calcium 8.9 (8.5-10.5) mg/dL Total Bilirubin 0.3 (0.15-1.2) mg/dL AST 11 (0-32) U/L ALT 7 (0-33) U/L Alkaline Phosphata se 120 H (35-105) IU/L Total Protein 6.0 L (6.6-8.7) g/dL Albumin 2.8 L (3.5-5.2) g/dL Globulin 3.2 (1.3-4.6) g/dL Urine Color (Yellow) Urine Appearance (CLEAR) Urine pH (5-7) Ur Specific Gravit y (1.005-1.030) Urine Protein (Negative) Urine Glucose (UA) (Normal) Urine Ketones (Negative) Urine Blood (Negative) Urine Nitrate (Negative) Urine Bilirubin (NEGATIVE) Urine Urobilinogen (Negative) mg/dL Ur Leukocyte Hanna ase (Negative) Urine RBC (0-2) /hpf Urine WBC (0-5) /hpf Ur Squamous Epith Cells (0-5) Urine Bacteria (NONE) Urine Mucus 08/01/19 08/01/19 Range/Units 22:30 23:15 WBC (4.0-10.0) 10^3/ uL RBC (4.1-5.3) 10^6/u L Hgb (11.5-15.3) g/dL Hct (37.0-47.0) % MCV (81-99) fL MCH (28.0-34.0) pg MCHC (30.0-36.0) g/dL RDW (12.1-15.1) % Plt Count (130-400) 10^3/c mm MPV (7.4-10.4) fL Neut % (Auto) % Lymph % (Auto) % Osborne % (Auto) % Eos % (Auto) % Baso % (Auto) % Neut # (Auto) (1.8-7.7) 10^3/u L Lymph # (Auto) (0.8-4.8) 10^3/u L Osborne # (Auto) (0.2-0.9) 10^3/u L Eos # (Auto) (0.0-0.8) 10^3/u L Baso # (Auto) (0.0-0.1) 10^3/u L Nucleated RBC % (a uto) % Nucleated RBCs # /100WBC PT (10.5-13.3) SECO NDS INR (0.8-1.2) APTT (23.9-36.7) SECO NDS Sodium (136-145) mmol/L Potassium (3.5-5.1) mmol/L Chloride (98-107) mmol/L Carbon Dioxide (22-29) mmol/L Anion Gap (5-19) BUN (6-20) mg/dL Creatinine (0.5-0.9) mg/dL GFR Calculation (90-130) mL/min Glucose (65-115) mg/dL Calculated Osmolal ity (285-295) mOsm/k g Lactic Acid 0.5 (0.5-2.2) mmol/L Calcium (8.5-10.5) mg/dL Total Bilirubin (0.15-1.2) mg/dL AST (0-32) U/L ALT (0-33) U/L Alkaline Phosphata se (35-105) IU/L Total Protein (6.6-8.7) g/dL Albumin (3.5-5.2) g/dL Globulin (1.3-4.6) g/dL Urine Color Yellow (Yellow) Urine Appearance Hazy A (CLEAR) Urine pH 5 (5-7) Ur Specific Gravit y 1.015 (1.005-1.030) Urine Protein Neg (Negative) Urine Glucose (UA) Norm (Normal) Urine Ketones Negative (Negative) Urine Blood Neg (Negative) Urine Nitrate Negative (Negative) Urine Bilirubin Neg (NEGATIVE) Urine Urobilinogen 1 H (Negative) mg/dL Ur Leukocyte Hanna ase 2+ H (Negative) Urine RBC 0-4 H (0-2) /hpf Urine WBC 55-80 H (0-5) /hpf Ur Squamous Epith Cells 10-15 H (0-5) Urine Bacteria 1+ H (NONE) Urine Mucus Trace Discharge Plan Discharge Condition: Stable Prescriptions: No Action hydrochlorothiazide 12.5 mg Tablet 12.5 mg PO DAILY RF: 0 Hold Instructions: Resume on 07/09/19. hold until seen by primary care ondansetron HCl [Zofran] 4 mg tablet 4 mg PO DAILY Qty: 14 RF: 0 amoxicillin-pot clavulanate 875-125 mg tablet 1 tab PO DAILY RF: 0 nitrofurantoin monohyd/m-cryst 100 mg capsule 100 mg PO DAILY RF: 0 oxycodone 15 mg tablet 15 mg PO Q4H PRN (Reason: Pain) RF: 0 famotidine 20 mg tablet 20 mg PO BID RF: 0 lisinopril 10 mg tablet 10 mg PO DAILY RF: 0 metoprolol succinate 25 mg tablet extended release 24 hr 12.5 mg PO DAILY RF: 0 fluticasone propionate 50 mcg/actuation spray,suspension 1 spray INTRANASAL DAILY RF: 0 Referrals: Antony Armstrong MD [Primary Care Provider] - Coding Level of Care Code ED Umbrella Supervisor for Chg Fwd Exam Comprehensive
--- NOTE | 2019-08-01 21:56 | USR_ITS ---
PROCEDURE INFORMATION: Exam: US Duplex Left Upper Extremity Veins, Limited Exam date and time: 08/01/2019 11:53 PM Age: 53 years old Clinical indication: Pain; Arm, upper; Left; Additional info: Swelling redness arm TECHNIQUE: Imaging protocol: Real-time Duplex ultrasound of the Left Upper Extremity with 2-D dupont scale, color Doppler flow and spectral waveform analysis with image documentation. Limited exam focused on the left upper extremity veins. COMPARISON: No relevant prior studies available. FINDINGS: Left deep veins: There is some intermediate echogenicity material seen intraluminally within the left subclavian vein compatible with a partial or non occluding thrombus. Intermediate echogenicity material occludes the left axillary and brachial veins compatible with deep venous thrombosis. Left superficial veins: There is thrombus material and occlusion of the left basilic vein. Soft tissues: Unremarkable. US/[place] [id number] IMPRESSION: 1. Deep venous thrombosis of the left subclavian, axillary and brachial veins. 2. Venous thrombosis seen within the left basilic vein.
--- NOTE | 2019-08-01 22:00 | XRR_ITS ---
PROCEDURE INFORMATION: Exam: XR Chest, 1 View Exam date and time: 08/01/2019 10:29 PM Age: 53 years old Clinical indication: Other: Weakness; Prior surgery; Surgery date: 6+ months; Surgery type: Gb; Additional info: Malaise TECHNIQUE: Imaging protocol: XR of the chest Views: 1 view. COMPARISON: CR XR chest 1V portable [id number] 07/06/2019 8:13 AM FINDINGS: Lungs: The right basilar atelectasis has resolved.. No consolidation. Pleural space: Unremarkable. No pleural effusion. No pneumothorax. Heart/Mediastinum: Unremarkable. No cardiomegaly. Bones/joints: Unremarkable. XR/XR chest 1V portable [id number] IMPRESSION: No acute findings.
[2019-08-01 22:13] LABS: Basophils % 0.6 %; Eosinophils % 0.3 %; Hematocrit 33.4 % (37.0-47.0); Hemoglobin 10.7 g/dL (11.5-15.3); Lymphocytes # 0.9 10^3/uL (0.8-4.8); Lymphocytes % 25.1 %; Mean Corpuscular Hemoglobin 28.6 pg (28.0-34.0); Mean Corpuscular Volume 89.3 fL (81-99); Mean Platelet Volume 9.2 fL (7.4-10.4); Monocytes # 0.3 10^3/uL (0.2-0.9); Monocytes % 8.3 %; Neutrophils # 2.4 10^3/uL (1.8-7.7); Neutrophils % 65.4 %; Nucleated Red Blood Cells % 0 %; Platelet Count 168 10^3/cmm (130-400); Red Blood Count 3.74 10^6/uL (4.1-5.3); Red Cell Distribution Width 14.7 % (12.1-15.1); White Blood Count 3.6 10^3/uL (4.0-10.0)
[2019-08-01 22:27] LABS: Alanine Aminotransferase 7 U/L (0-33); Albumin Level 2.8 g/dL (3.5-5.2); Alkaline Phosphatase 120 IU/L (35-105); Anion Gap 10.2 (5-19); Aspartate Amino Transferase 11 U/L (0-32); Blood Urea Nitrogen 15 mg/dL (6-20); Calcium 8.9 mg/dL (8.5-10.5); Carbon Dioxide 28 mmol/L (22-29); Chloride 100 mmol/L (98-107); Globulin 3.2 g/dL (1.3-4.6); Glomerular Filtration Rate 103.8 mL/min (90-130); Glucose 88 mg/dL (65-115); Osmolality Calculated 274 mOsm/kg (285-295); Potassium 4.2 mmol/L (3.5-5.1); Sodium 134 mmol/L (136-145); Total Bilirubin 0.3 mg/dL (0.15-1.2)
[2019-08-01 22:42] LABS: INR 0.99 (0.8-1.2)
[2019-08-01 22:43] LABS: Partial Thromboplastin Time 30.7 SECONDS (23.9-36.7)
[2019-08-01 23:01] LABS: Bilirubin Urine Neg (NEGATIVE); Blood Urine Neg (Negative); Glucose Urine UA Norm (Normal); Ketones Urine Negative (Negative); Nitrate Urine Negative (Negative); Protein Urine Neg (Negative); Specific Gravity, Urine 1.015 (1.005-1.030); Urine Appearance Hazy (CLEAR); Urine Color Yellow (Yellow); pH Urine 5 (5-7)
[2019-08-01 23:02] LABS: Add Urine Microscopic? YES; Leukocyte Esterase Urine 2+ (Negative); Urobilinogen Urine 1 mg/dL (Negative)
[2019-08-01 23:03] LABS: Bacteria Urine 1+; Mucus Urine TRACE; RBC Urine 0-4 /hpf (0-2); WBC Urine 55-80 /hpf (0-5)
[2019-08-01 23:04] LABS: Add Urine Culture? No
--- NOTE | 2019-08-01 23:07 | CTR_ITS ---
PROCEDURE INFORMATION: Exam: CT Angiography Chest With Contrast Exam date and time: 08/01/2019 11:25 PM Age: 53 years old Clinical indication: Abnormal findings; Other: Lue dvt; Patient HX: HX stage 4 esophageal CA C/O lue swelling and pain +dvt; Additional info: Dvt arm, chest discomfort TECHNIQUE: Imaging protocol: Computed tomographic angiography of the chest with intravenous contrast. 3D rendering: MIP and/or 3D reconstructed images were created by the technologist. Radiation optimization: All CT scans at this facility use at least one of these dose optimization techniques: automated exposure control; mA and/or kV adjustment per patient size (includes targeted exams where dose is matched to clinical indication); or iterative reconstruction. Contrast material: OMNI 350; Contrast volume: 75 ml; Contrast route: 20G; COMPARISON: CT chest abd pel w con* 06/30/2019 12:50 PM RADIATION DOSE METRICS: Total DLP: 471.73 mGy-cm FINDINGS: Pulmonary arteries: Normal. No pulmonary emboli. Aorta: Unremarkable. No aortic aneurysm. No aortic dissection. Lungs: There is mild crowding of the bronchi pulmonary vasculature seen within the right middle lobe compatible with some atelectasis. Some hazy opacities are seen in left lung base superimposed over the pleural effusion likely representing atelectasis. Pleural space: There are bilateral pleural effusions. These appear new compared with 06/30/2019. Heart: Unremarkable. No cardiomegaly. No pericardial effusion. Lymph nodes: Prominent mediastinal lymph nodes are again seen most notably within the anterior mediastinum worrisome for metastatic disease. Liver: There is a somewhat ill-defined low-attenuation lesion seen within the left hepatic lobe measuring approximately 2.5 x 2.7 cm. This is best visualized on CT examination dated 06/30/2019. A metastatic lesion cannot be excluded in view the patient's clinical history of esophageal cancer. Adrenals: There is a prominent right adrenal mass present measuring 2.8 x 1.9 x 3.6 cm. This appears stable compared with 06/30/2019. There are several pelvocaliceal cysts seen within the left kidney. Bones/joints: A lytic destructive metastatic lesions again seen within the pedicle and lamina T12 on the right. Soft tissues: There is a prominent soft tissue attenuation supraclavicular mass seen on the left measuring approximately 2.6 x 2.7 x 2.2 cm. This appears similar to that present 06/30/2019. CT/CT angio chest PE protcl [id number] IMPRESSION: 1. There are new bilateral pleural effusions. 2. Probable mild right middle lobe and left basilar atelectasis. 3. Stable mediastinal lymphadenopathy 4. Stable left supraclavicular mass 5. Stable right adrenal mass 6. Ill-defined low-attenuation lesion in the left hepatic lobe appears similar to that seen on 06/30/2019, finding worrisome for a metastatic lesion. 7. Stable lytic destructive metastatic lesion of T12 Radiation Dose CTDIVOL = (mGy): DLP = 471.73 (mGy-cm)
--- NOTE | 2019-08-01 23:10 | PC.NURSE ---
pt. care and report given to Hayes HURTADO
[2019-08-01] MEDS: sodium chloride 0.9% 500 ML 999 ML IV (23:22)
[2019-08-01 23:39] LABS: Lactic Sepsis W/Reflex 0.5 mmol/L (0.5-2.2)
[2019-08-01] MEDS: iohexol 350 mg/mL 100 mL Btl IV (23:48)
[2019-08-01] MEDS: enoxaparin 60 mg/0.6 mL Syringe 50 MG SUBCUT (23:56)
[2019-08-02] VITALS (41 sets, daily range): BP systolic 105–135; BP diastolic 75–91; PULSE 71–84; RESP 14–20; TEMP 36.2–36.9; O2SAT 96–100
[2019-08-02] MEDS: cefTRIAXone 1,000 MG in sodium chloride 0.9% (plus) 50 ML 100 MG IV (00:50)
[2019-08-02] MEDS: morphine 4 mg/mL SDV 1 mL 2 MG IVP ×5 (00:50→18:39)
[2019-08-02] MEDS: piperacillin-tazobactam 3.375 GM in sodium chloride 0.9% (plus) 50 ML IV (01:18)
--- NOTE | 2019-08-02 02:11 | PM.HP ---
Providers/Chief Complaint Admitting Physician: Mallory Conde MD Primary Care Provider: Antony Armstrong MD Chief Complaint: UTI; WEAKNESS; ESOPHEGEAL CANCER History of Present Illness Maria D Stubbs is a 53 year old female with a past medical history of distal esophageal cancer, stage IVb, recently admitted with intractable nausea and vomiting in June 2019. Patient came into the ER for persistent weakness for the last 3 days. She had multiple ER visits for the same complaints multiple times this past month. She presented today with c/o nausea, vomiting, poor po inatke, malaise and dehydration. Also noted to have increased swelling and tenderness to the left upper extremity. Ultrasound with venous study of the left extremity noted a significant DVT to the extremity. Per prelim discussion, it appears to involve basilic,axillary and subclavian veins proximally. Patient was given 50 mg of Lovenox and was medicated with Zosyn in the emergency room for a positive UA with h/o ESBL colonization. ROS + for dysphagia. Review of Systems General: Reports: 10 or more systems reviewed and unremarkable except in HPI and below Const: Denies: fever(s), chills or body aches Eyes: Denies: change in vision, blurry vision or photophobia ENMT: Reports: odynophagia; Denies: throat pain, enlarged tonsils, hoarseness or nasal congestion Card: Denies: chest pain, palpitations, irregular heart rhythm, edema, swelling of feet/ankles, lightheadedness, pre-syncope, dyspnea on exertion or orthopnea Resp: Denies: dyspnea, productive cough, non-productive cough, wheezing, stridor, pain on inspiration, change in phlegm color, hemoptysis or chest congestion GI: Reports: abdominal pain and nausea; Denies: vomiting, hematemesis, coffee ground emesis, dysphagia, heartburn, diarrhea, constipation, GI cramping, change in stool character, hematochezia or melena : Denies: flank pain, difficulty voiding, dysuria, urinary frequency, urinary urgency, urinary hesitancy or hematuria Musc: Denies: neck pain, back pain, extremity pain, joint swelling, joint warmth or deformity Neuro: Denies: headache(s), numbness in extremities, weakness in extremities, sensory changes, difficulty walking, frequent falls, dizziness, vertigo, behavioral changes, Slurred speech present or seizure-like activity Psych: Denies: anxiety, depression, suicidal ideation or homicidal ideation Endo: Denies: polyuria, polydipsia, tired all the time, cold intolerance or hot flashes Fidel/Lymph: Denies: easy bruising or easy bleeding Medications/Allergies Home Medications Medication Instructions Recorded Confirmed Last Taken Type famotidine 20 mg PO BID 03/22/19 07/09/19 07/09/19 History fluticasone propionate 1 spray INTRANASAL DAILY 03/22/19 07/09/19 07/09/19 History lisinopril 10 mg PO DAILY 03/22/19 07/09/19 07/09/19 History metoprolol succinate 12.5 mg PO DAILY 03/22/19 07/09/19 07/09/19 History oxycodone 15 mg PO Q4H PRN 03/22/19 07/09/19 07/09/19 History hydrochlorothiazide 12.5 mg PO DAILY 06/30/19 07/09/19 07/09/19 History ondansetron HCl [Zofran] 4 mg PO DAILY #14 tab 07/06/19 07/09/19 07/08/19 Rx amoxicillin-pot clavulanate 1 tab PO DAILY 07/09/19 07/09/19 07/09/19 History nitrofurantoin monohyd/m-cryst 100 mg PO DAILY 07/09/19 07/09/19 07/09/19 History Allergies Allergy/AdvReac Type Severity Reaction Status Date / Time adhesive Allergy ALGY-Rash Verified 07/06/19 07:56 latex Allergy ALGY-Rash Verified 07/06/19 07:56 PFSH Acute PFSH: Medical History Biliary colic Cholecystitis Cholelithiasis Diverticulosis Esophageal cancer, stage IV 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, stage IVb GI bleeding History of diabetes mellitus HTN (hypertension) UTI (urinary tract infection) Surgical History History of cholecystectomy History of esophagogastroduodenoscopy (EGD) Family History Mother Congestive heart failure Social History Smoking and tobacco status: never smoked Alcohol intake: never Vitals/I&O/Wt Last Vital Signs Temp 97.3 F L 08/01/19 21:34 Pulse 83 08/02/19 00:55 Resp 18 08/01/19 22:11 BP 111/82 08/02/19 01:00 Pulse Ox 97 08/02/19 01:00 Weight last 48 hrs Weight 47.627 kg Physical Exam Narrative: EXAM NARRATIVE: GEN: Awake, alert and oriented, dehydration++, cachexic CVS: S1S2 N RS: CTA B/L Abd: Soft, nt/nd , bs+ 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 There are new bilateral pleural effusions. 2. Probable mild right middle lobe and left basilar atelectasis. 3. Stable mediastinal lymphadenopathy 4. Stable left supraclavicular mass 5. Stable right adrenal mass 6. Ill-defined low-attenuation lesion in the left hepatic lobe appears similar to that seen on 06/30/2019, finding worrisome for a metastatic lesion. 7. Stable lytic destructive metastatic lesion of T12 XR Chest, 1 View IMPRESSION: No acute findings. A&P Assessment and plan (1) Left upper extremity deep vein thrombosis: Status: Acute (2) Esophageal cancer, stage IV: Status: Acute (3) Dehydration: Status: Acute (4) Failure to thrive: Status: Acute (5) Malnutrition: Status: Acute Additional A&P Information Admit to MEd/surg 1. DVT of the left upper extremity per preliminary report involves the basilic, axillary and subclavian veins , awaiting final read No evidence of SVC thrombosis on CT chest No thoracic outlet obstruction identified start anticoagulation with lovenox 1mg/kg q12h 2. Esophageal ca stage IV, moderately to poorly differentiated invasive adenocarcinoma - Inoperable disease with metastatic involvement , not amenable to chemo or immunotherapy , declined palliative chemotherapy in the past - She is s/p palliative radiation to the distal esophagus/GE junction to relieve her dysphagia and to t12 completed Apr 2019. she has not has an oncology f/up since then. 3. failure to thrive, dysphagia leading to poor po intake and malnutrition and dehydration IVF d5NS @ 75cc/hr Hold lisinopril and HCTZ for now swallow evaluation 4. UA+, chronically so, in the absence of any other signs of infection such as fever, CVA tenderness, leukocytosis, will hold off on antibiotic treatment. her + UA is more likely suggestive of chronic cystitis and ESBL e.coli colonization, both of which unlikly to benefit from treatment in the absence of active infection. While ideally she may be worked up with cystoscopies, abdominal imaging, etc, would defer for now as this is unlikly to add to her overall quality of life. Will continue macrobid for now as a suppressive approach. Patient has had multiple Er visits for issues ranging from UTI, aspiration pneumonia, dehydration, electrolyte abnormalities etc, all resulting from her underlying malignancy. She lives alone and is quite overwhelmed by her ongoing illness. I presnted the option of SNF/NH placement and patient would like to consider this. vp marketing services and skin consult for the same Full code for now per her wishes. DVT ppx: full dose lovenox Attestations Medical Necessity Statement*: >2midnight admission for management of DVT, failure to thrive, need for iv hydration Coding Level of Care Code Acute Boxing Machine Operator for Chg Fwd Diagnoses Left upper extremity deep vein thrombosis I82.622 Esophageal cancer, stage IV C15.9 Dehydration E86.0 Failure to thrive Malnutrition E46
[2019-08-02] MEDS: dextrose 5%-sod chloride 0.9% 1,000 ML 75 ML IV ×2 (03:31→21:27)
--- NOTE | 2019-08-02 10:46 | PM.PN ---
Subjective Subjective: Interval history: Admitted overnight. Labs and H&P noted. Examination patient is sitting comfortably in bed. Denies of having nausea, vomiting, headache. Concerned about swelling in her left arm. On further asking her regarding her esophageal cancer at first she states she does not remember what conversation she had with Dr. Hilliard in the past. She is not aware about prognosis. But during the conversation she states that she was told in the past that she has very grave prognosis. Vitals/I&O/Wt Last Vital Signs Temp 97.8 F 08/02/19 07:36 Pulse 79 08/02/19 07:36 Resp 19 H 08/02/19 07:36 BP 119/82 08/02/19 07:36 Pulse Ox 98 08/02/19 07:36 08/01/19 08/02/19 08/02/19 22:59 06:59 14:59 Intake Total 0 / 0 360 / 360 Output Total 200 / 200 75 / 75 Balance -200 / -200 285 / 285 Weight last 48 hrs Weight 47.627 kg Physical Exam Narrative: EXAM NARRATIVE: General: No acute distress, AO x3, cachectic, dehydration HEENT: PERRLA, pupils bilaterally equal and reactive Chest: Normal vesicular breath sounds, no added sounds, equal good air entry bilaterally CVS: S1-S2 regular, no murmurs, no tachycardia, no gallops, no rubs Abdomen: Soft, nontender, no organomegaly, bowel sounds present Neuro: No focal deficits, no facial deformity, AO x3, power 5/5 in all limbs Data : 08/01/19 22:03 08/01/19 22:03 Micro: Microbiology 08/01/19 23:15 Blood Culture - Preliminary Blood SPECIMEN COLLECTED A&P Assessment and plan (1) Left upper extremity deep vein thrombosis: Status: Acute (2) Esophageal cancer, stage IV: Status: Acute (3) Dehydration: Status: Acute (4) Failure to thrive: Status: Acute (5) Malnutrition: Status: Acute Additional A&P Information 53-year-old female with past medical history of distal esophageal cancer, stage IV on palliative radiation therapy with a history of possibly refusing palliative chemotherapy in the past, cachectic appearing presented to the ER with left upper swelling and poor oral intake. DVT of the left upper extremity: As per upper limb Doppler present in left subclavian, axillary and brachial veins. CTA chest negative for any SVC thrombosis but concerning for left supraclavicular mass. No concern for thoracic outlet obstruction. Continue with Lovenox at 1mg/kg body weight every 12 hours subcutaneously. Patient would need to be transitioned over to oral therapy. But given the supraclavicular mass it is likely that if because of patient developing DVT so will need to discuss with oncology if more radiation therapy/chemotherapy can be offered to the patient to decrease the mass-effect. PT/OT. Esophageal ca stage IV, moderately to poorly differentiated invasive adenocarcinoma - Inoperable disease with metastatic involvement , not amenable to chemo or immunotherapy , declined palliative chemotherapy in the past - She is s/p palliative radiation to the distal esophagus/GE junction to relieve her dysphagia and to t12 completed Apr 2019. she has not has an oncology f/up since then. Failure to thrive: Dysphagia leading to poor po intake and malnutrition and dehydration Continue with IVF d5NS @ 75cc/hr. Will have to monitor for refeeding syndrome. Check phosphorous and magnesium. For now continue on dysphagia 1 diet. Modified barium swallow evaluation to be done. Dirty urinalysis: Chronically so, in the absence of any other signs of infection such as fever, CVA tenderness, leukocytosis, will hold off on antibiotic treatment. her + UA is more likely suggestive of chronic cystitis and ESBL e.coli colonization, both of which unlikly to benefit from treatment in the absence of active infection. While ideally she may be worked up with cystoscopies, abdominal imaging, etc, would defer for now as this is unlikly to add to her overall quality of life. Will continue macrobid for now as a suppressive approach. Patient has had multiple Er visits for issues ranging from UTI, aspiration pneumonia, dehydration, electrolyte abnormalities etc, all resulting from her underlying malignancy. She lives alone and is quite overwhelmed by her ongoing illness. I presnted the option of SNF/NH placement and patient would like to consider this. coordinator of library services consult for the same Did goals of care discussion with the patient. She seems to be disconnected regarding the prognosis of her advanced esophageal cancer. She states she would not want any kind of mechanical ventilation but is okay with chest compressions for now. CODE STATUS has been changed to limited resuscitation. She states her D POA would be her cousin Ms. Niya Hui. Her phone number is [phone] Lovenox therapeutic dose. Dysphagia stage I diet. 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 Time Spent in Patient Care: Greater than 35 minutes (>than 50% of time spent in counselling and/or direct pt care on unit). Coding Level of Care Code Acute Java Xml Developer for Chg Fwd Diagnoses Left upper extremity deep vein thrombosis I82.622 Esophageal cancer, stage IV C15.9 Dehydration E86.0 Failure to thrive Malnutrition E46
[2019-08-02] MEDS: fluticasone nasal spray 16gm Btl 1 SPRAY INTRANASAL (11:05)
[2019-08-02 12:24] LABS: Phosphorus 2.6 mg/dL (2.5-4.5)
[2019-08-02] MEDS: enoxaparin 100 mg/mL Syringe 50 MG SUBCUT ×2 (12:28→23:23)
[2019-08-02] MEDS: famotidine 20 mg Tablet PO (17:53)
[2019-08-02] MEDS: metoprolol tartrate 25 mg Tablet PO (17:53)
[2019-08-02] MEDS: ALPRAZolam 0.5 mg Tablet PO (21:27)
[2019-08-02] MEDS: nitrofurantoin SR (BID) 100 mg Capsule PO (21:27)
[2019-08-02] MEDS: ondansetron 2 mg/ML SDV 2 mL 4 MG IVP (21:32)
[2019-08-03] VITALS (9 sets, daily range): BP systolic 105–128; BP diastolic 70–89; PULSE 61–83; RESP 17–20; TEMP 36.2–36.5; O2SAT 98–99
[2019-08-03] MEDS: morphine 4 mg/mL SDV 1 mL 2 MG IVP ×4 (00:54→21:11)
--- NOTE | 2019-08-03 04:33 | PC.NURSE ---
Addendum entered by Ynes Palacios RN 08/03/19 05:04: Intake has been minimal. Output adequate. Addendum entered by Ynes Palacios RN 08/03/19 04:59: Patient will have Barium Swallow done today. Original Note: End of shift: Patient has done fair this shift. Was very restless at the beginning of shift and requested something for sleep. She received Xanax 0.5 mg. This seemed to help for a couple of hours. Urinary frequency and urgency has occurred this shift. I&O has been adequate. VS WNL. Patient walked up and down the jones with assist x1 and tolerated well. Pain has been controlled for the majority of the shift. It is mostly located to her left shoulder/arm, although she states generalized body upon assessment. She has hardly rested and has became more restless throughout the night. She is A&O x3 but does become confused at times. MONICA Hui called earlier in the shift to update Dr. Conde on patient home med Trazadone. Will update dayshift nurse so the dayshift hospitalist can be notified as well.
[2019-08-03 06:29] LABS: Basophils % 0.3 %; Eosinophils % 0.3 %; Hematocrit 31.9 % (37.0-47.0); Hemoglobin 9.7 g/dL (11.5-15.3); Lymphocytes # 0.7 10^3/uL (0.8-4.8); Lymphocytes % 24.6 %; Mean Corpuscular HGB Conc 30.4 g/dL (30.0-36.0); Mean Corpuscular Hemoglobin 28.2 pg (28.0-34.0); Mean Corpuscular Volume 92.7 fL (81-99); Mean Platelet Volume 9.3 fL (7.4-10.4); Monocytes # 0.4 10^3/uL (0.2-0.9); Monocytes % 12.5 %; Neutrophils # 1.8 10^3/uL (1.8-7.7); Nucleated Red Blood Cells % 0 %; Platelet Count 174 10^3/cmm (130-400); Red Blood Count 3.44 10^6/uL (4.1-5.3); Red Cell Distribution Width 14.6 % (12.1-15.1); White Blood Count 2.9 10^3/uL (4.0-10.0)
[2019-08-03 07:29] LABS: Magnesium 1.9 mg/dL (1.7-2.3); Phosphorus 2.8 mg/dL (2.5-4.5)
[2019-08-03 07:30] LABS: Alanine Aminotransferase < 5 U/L (0-33); Albumin Level 2.2 g/dL (3.5-5.2); Alkaline Phosphatase 101 IU/L (35-105); Anion Gap 14.3 (5-19); Aspartate Amino Transferase 10 U/L (0-32); Blood Urea Nitrogen 10 mg/dL (6-20); Calcium 8.4 mg/dL (8.5-10.5); Carbon Dioxide 21 mmol/L (22-29); Chloride 102 mmol/L (98-107); Glomerular Filtration Rate 128.1 mL/min (90-130); Glucose 85 mg/dL (65-115); Osmolality Calculated 273 mOsm/kg (285-295); Potassium 3.3 mmol/L (3.5-5.1); Sodium 134 mmol/L (136-145); Total Bilirubin 0.2 mg/dL (0.15-1.2); Total Protein 5.2 g/dL (6.6-8.7)
[2019-08-03] MEDS: fluticasone nasal spray 16gm Btl 1 SPRAY INTRANASAL (08:17)
[2019-08-03] MEDS: metoprolol tartrate 25 mg Tablet PO ×2 (08:18→17:03)
[2019-08-03] MEDS: famotidine 20 mg Tablet PO ×2 (08:18→17:03)
--- NOTE | 2019-08-03 09:00 | FL_ITS ---
WS: [id number] MODIFIED BARIUM SWALLOW HISTORY: Pharyngoesoph. Dysphagia FLUOROSCOPY TIME: 2.6 minutes. Modified barium swallow was performed by the speech pathologist. Fluoroscopy was provided with the pa tient in a lateral projection. Multiple food consistencies were provided. No aspiration or laryngeal penetration was noted during this examination. Limited evaluation as patie nt was unable to swallow multiple food consistencies. There is coating of the pharynx with the barium material with delayed emptying. Repeat swallowing and fluids were needed to clear the barium mixture . FL/FL barium swallow modifd [id number] IMPRESSION: 1. Limited evaluation of swallowing function as only a few consistencies were able to be swallow. 2. No aspiration or laryngeal penetration. Please see speech therapist report also for recommendations.
--- NOTE | 2019-08-03 09:18 | PC.CHAP ---
Pastoral Care Encounter/Spiritual Assessment Type of Contact [] Declined team foreman visit [] Patient/Family/Request visit [] Outpatient visit [] Follow-up visit [] Physician referral [] Code/Alert [x] Routine visit [] Staff referral [] Actively dying [] Patient sleeping [] Family support [] [] Out of room [] Palliative care [] [] Receiving care in room [] Pre-surgical visit [] Trauma [] Long length of stay [] ICU visit [] Other: Relational/Emotional Strength [] Patient feels connected with others/family/visitors/staff [] Distress [] Loneliness/isolation [] Abandonment Spirituality of Patient [] Person of [place] [] Attends Cheondoism of their [place] [] Believes in Prayer [] Reads Bible or Voodoo materials [] There are Spiritual issues to be addressed Handbag Operator Interventions [x] Prayer [] Active listening [] Non-anxious presence [] Spiritual/emotional support [] Crisis/trauma care [] Spiritual counseling [] Bereavement support [] Provided bereavement packet [] Provided Bible/devotional materials [] Provided toy/stuffed animal, coloring book to patient or family member [] Provided Communion [] Anointing/Colbert [] Salvation [x] Completed spiritual assessment [] Other: Impact on Illness or Injury [] Angry [] Fearful [] Anxious [] Often cries [] Exhaustion [] Unable to work [] Unable to attend restorationist [] Unable to walk/stand [] Unable to read [] Unable to drive [] Unable to eat/drink [] Unable to sleep [] Unable to be with family [] Patient intubated [] Other: Summary delightful patient. Weak, but very alert. Time spent with patient 15 min
[2019-08-03 12:37] LABS: INR 0.98 (0.8-1.2)
[2019-08-03] MEDS: enoxaparin 100 mg/mL Syringe 50 MG SUBCUT (13:35)
[2019-08-03] MEDS: dextrose 5%-sod chloride 0.9% 1,000 ML 75 ML IV (13:39)
[2019-08-03] MEDS: ondansetron 2 mg/ML SDV 2 mL 4 MG IVP ×2 (17:32→21:46)
--- NOTE | 2019-08-03 18:14 | PM.PN ---
Subjective Subjective: Interval history: This morning patient states that she is feeling okay, continues to feel weak, generalized, has left arm swelling, no fevers, no chills, no cough, patient is awaiting jail placement, patient is open to the idea of palliative radiation therapy to her left supraclavicular mass, was not interested in the hospice option that was presented to her Vitals/I&O/Wt Last Vital Signs Temp 97.7 F 08/03/19 11:09 Pulse 69 08/03/19 15:51 Resp 18 08/03/19 15:51 BP 105/70 08/03/19 15:51 Pulse Ox 99 08/03/19 15:51 08/03/19 08/03/19 08/03/19 06:59 14:59 22:59 Intake Total 678.75 / 2318.75 681.25 / 681.25 120 / 801.25 Output Total 700 / 700 Balance 678.75 / 1943.75 -18.75 / -18.75 120 / 101.25 Weight last 48 hrs Weight 47.627 kg Physical Exam Const: COMMON NORMALS: no acute distress and patient oriented x3 HENMT: COMMON NORMALS: normocephalic HEAD & SCALP: normocephalic Neck/C-Spine: COMMON NORMALS: no JVD Resp: COMMON NORMALS: normal respiratory effort, No retractions, No use of accessory muscles and clear to auscultation bilaterally AUSCULTATION: clear to auscultation bilaterally Cardio: COMMON NORMALS: no JVD, regular rate, regular rhythm, S1 normal heart sound present and S2 normal heart sound present RATE: regular rate RHYTHM: regular rhythm HEART SOUNDS: S1 normal heart sound present and S2 normal heart sound present GI: COMMON NORMALS: Normal to inspection, nondistended, normoactive bowel sounds present, Soft to palpation, non-tender, No hepatosplenomegaly present, no masses and no bruits PALPATION: Yes Soft to palpation and Yes No hepatosplenomegaly present Extremity: COMMON NORMALS: capillary refill normal, no clubbing, cyanosis or edema, no calf tenderness and no pedal edema NARRATIVE EXTREMITY EXAM: Left arm, forearm, hand swelling Neuro: COMMON NORMALS: patient oriented x3 Psych: COMMON NORMALS: mental status grossly normal Data : 08/03/19 05:35 08/03/19 05:35 Micro: Microbiology 08/01/19 23:15 Blood Culture - Preliminary Blood NEGATIVE TO DATE A&P Assessment and plan (1) Left upper extremity deep vein thrombosis: Status: Acute (2) Esophageal cancer, stage IV: Status: Acute (3) Dehydration: Status: Acute (4) Failure to thrive: Status: Acute (5) Malnutrition: Status: Acute Additional A&P Information 53-year-old female with past medical history of distal esophageal cancer, stage IV on palliative radiation therapy with a history of possibly refusing palliative chemotherapy in the past, cachectic appearing presented to the ER with left upper swelling and poor oral intake. DVT of the left upper extremity: As per upper limb Doppler present in left subclavian, axillary and brachial veins. CTA chest negative for any SVC thrombosis but concerning for left supraclavicular mass. No concern for thoracic outlet obstruction. Continue with Lovenox at 1mg/kg body weight every 12 hours subcutaneously. Patient would need to be transitioned over to oral therapy. But given the supraclavicular mass it is likely that if because of patient developing DVT, I have spoken to Dr. Hilliard about radiation therapy, he agrees that it would be a reasonable option, will have a discussion with the patient tomorrow PT/OT. Esophageal ca stage IV, moderately to poorly differentiated invasive adenocarcinoma - Inoperable disease with metastatic involvement , not amenable to chemo or immunotherapy , declined palliative chemotherapy in the past - She is s/p palliative radiation to the distal esophagus/GE junction to relieve her dysphagia and to t12 completed Apr 2019. she has not has an oncology f/up since then. Failure to thrive: Dysphagia leading to poor po intake and malnutrition and dehydration Continue with IVF d5NS @ 75cc/hr. Will have to monitor for refeeding syndrome. Check phosphorous and magnesium. For now continue on dysphagia 1 diet. Modified barium swallow evaluation showed no aspiration allergic penetration, but was a difficult study, working on jail placement Dirty urinalysis: Chronically so, in the absence of any other signs of infection such as fever, CVA tenderness, leukocytosis, will hold off on antibiotic treatment. her + UA is more likely suggestive of chronic cystitis and ESBL e.coli colonization, both of which unlikly to benefit from treatment in the absence of active infection. While ideally she may be worked up with cystoscopies, abdominal imaging, etc, would defer for now as this is unlikly to add to her overall quality of life. Will continue macrobid for now as a suppressive approach. Patient has had multiple Er visits for issues ranging from UTI, aspiration pneumonia, dehydration, electrolyte abnormalities etc, all resulting from her underlying malignancy. She lives alone and is quite overwhelmed by her ongoing illness. I presnted the option of SNF/NH placement has accepted this, waiting on jail placement multimedia services coordinator consult for the same CODE STATUS has been changed to limited resuscitation. Agreeable to consider palliative radiation therapy to the left supraclavicular mass Declines hospice option She states her D POA would be her cousin Ms. Niya Hui. Her phone number is [phone] Lovenox therapeutic dose. Dysphagia stage I diet. Attestations Medical Necessity Statement*: Patient requires continued hospitalization and due to left supraclavicular mass, likely metastatic esophageal cancer, failure to thrive Coding Level of Care Code Acute Religion Professor for Chg Fwd Diagnoses Left upper extremity deep vein thrombosis I82.622 Esophageal cancer, stage IV C15.9 Dehydration E86.0 Failure to thrive Malnutrition E46
--- NOTE | 2019-08-03 19:19 | PC.NURSE ---
The pt was in the hallway at the begining of the shift. She requested to have the bed alarm turned off. This ad writer explained to the pt the reasoning for the bed alarm for safety. The pt began crying and stating she is going to call her cousin to come get her.
[2019-08-03] MEDS: nitrofurantoin SR (BID) 100 mg Capsule PO (20:01)
[2019-08-03] MEDS: temazepam 15 mg Capsule PO (21:11)
[2019-08-03] MEDS: trazodone 50 mg Tablet PO (22:19)
[2019-08-04] VITALS (11 sets, daily range): BP systolic 100–136; BP diastolic 60–98; PULSE 72–79; RESP 16–20; TEMP 36.4–37.1; O2SAT 96–98
--- NOTE | 2019-08-04 | SCC_ITS ---
Radiation Therapy Planning CT images; total exam DLP: 216.53 mGy-cm MTDD
[2019-08-04] MEDS: enoxaparin 100 mg/mL Syringe 50 MG SUBCUT ×2 (01:02→12:14)
[2019-08-04] MEDS: dextrose 5%-sod chloride 0.9% 1,000 ML 75 ML IV ×2 (01:30→20:00)
[2019-08-04 05:27] LABS: Basophils % 0.3 %; Eosinophils % 0.3 %; Hematocrit 35.2 % (37.0-47.0); Hemoglobin 10.8 g/dL (11.5-15.3); Lymphocytes # 0.9 10^3/uL (0.8-4.8); Lymphocytes % 28.4 %; Mean Corpuscular HGB Conc 30.7 g/dL (30.0-36.0); Mean Corpuscular Hemoglobin 28.6 pg (28.0-34.0); Mean Corpuscular Volume 93.4 fL (81-99); Mean Platelet Volume 9.3 fL (7.4-10.4); Monocytes # 0.3 10^3/uL (0.2-0.9); Monocytes % 9.9 %; Neutrophils # 1.9 10^3/uL (1.8-7.7); Neutrophils % 60.5 %; Nucleated Red Blood Cells % 0 %; Platelet Count 171 10^3/cmm (130-400); Red Blood Count 3.77 10^6/uL (4.1-5.3); Red Cell Distribution Width 14.7 % (12.1-15.1); White Blood Count 3.1 10^3/uL (4.0-10.0)
[2019-08-04] MEDS: morphine 4 mg/mL SDV 1 mL 2 MG IVP ×4 (05:32→17:25)
[2019-08-04 06:05] LABS: Alanine Aminotransferase < 5 U/L (0-33); Albumin Level 2.3 g/dL (3.5-5.2); Alkaline Phosphatase 99 IU/L (35-105); Anion Gap 11.6 (5-19); Aspartate Amino Transferase 9 U/L (0-32); Blood Urea Nitrogen 8 mg/dL (6-20); Calcium 7.8 mg/dL (8.5-10.5); Carbon Dioxide 22 mmol/L (22-29); Chloride 107 mmol/L (98-107); Globulin 2.6 g/dL (1.3-4.6); Glomerular Filtration Rate 165.7 mL/min (90-130); Glucose 88 mg/dL (65-115); Osmolality Calculated 279 mOsm/kg (285-295); Potassium 3.6 mmol/L (3.5-5.1); Sodium 137 mmol/L (136-145); Total Bilirubin 0.3 mg/dL (0.15-1.2); Total Protein 4.9 g/dL (6.6-8.7)
[2019-08-04 06:06] LABS: Magnesium 2.1 mg/dL (1.7-2.3); Phosphorus 2.7 mg/dL (2.5-4.5)
[2019-08-04] MEDS: ondansetron 2 mg/ML SDV 2 mL 4 MG IVP (08:48)
[2019-08-04] MEDS: famotidine 20 mg Tablet PO ×2 (08:50→17:24)
[2019-08-04] MEDS: fluticasone nasal spray 16gm Btl 1 SPRAY INTRANASAL (08:50)
[2019-08-04] MEDS: metoprolol tartrate 25 mg Tablet PO ×2 (08:50→17:24)
--- NOTE | 2019-08-04 12:27 | P.PN_ITS ---
Subjective Subjective: Interval history: This morning patient was quite sad, states that she really wants to go home, I advised patient she is quite weak, fatigued, has a poor appetite, she is a high risk of falls, high risk of fractures, high risk of bleeding as she is on anticoagulation, I would highly recommend for her to go to a detention, as she has metastatic esophageal cancer, is overall poor prognosis, and unfortunately her condition is on a steady decline, and if we can get her over to detention on this admission, this would avoid readmissions, and or significant morbidity or mortality associated with the complications of her decline in the very near future, patient voiced understanding, agreed to stay, agreed for detention placement I spoke to Dr. Hilliard over the phone, Dr. Hilliard has been trying to get patient over to longterm, but patient refuses, patient will have evaluation by radiation oncology today for consideration of palliative radiation therapy to the left supraclavicular mass Vitals/I&O/Wt Last Vital Signs Temp 97.9 F 08/04/19 11:02 Pulse 72 08/04/19 11:02 Resp 20 H 08/04/19 11:02 BP 112/60 08/04/19 11:02 Pulse Ox 98 08/04/19 11:02 08/03/19 08/04/19 08/04/19 22:59 06:59 14:59 Intake Total 120 / 801.25 888.75 / 1690.00 360 / 360 Output Total 25 / 725 350 / 350 Balance 120 / 101.25 863.75 / 965.00 10 / 10 Physical Exam Const: COMMON NORMALS: no acute distress and patient oriented x3 GENERAL APPEARANCE: ill appearing and frail appearing NUTRITIONAL APPEARANCE: cachectic HENMT: COMMON NORMALS: normocephalic HEAD & SCALP: normocephalic Neck/C-Spine: COMMON NORMALS: no JVD Resp: COMMON NORMALS: normal respiratory effort, No retractions, No use of accessory muscles and clear to auscultation bilaterally AUSCULTATION: clear to auscultation bilaterally Cardio: COMMON NORMALS: no JVD, regular rate, regular rhythm, S1 normal heart sound present and S2 normal heart sound present RATE: regular rate RHYTHM: regular rhythm HEART SOUNDS: S1 normal heart sound present and S2 normal h eart sound present GI: COMMON NORMALS: Normal to inspection, nondistended, normoactive bowel sounds present, Soft to palpation, non-tender, No hepatosplenomegaly present, no masses and no bruits PALPATION: Yes Soft to palpation and Yes No hepatosplenomegaly present Extremity: COMMON NORMALS: capillary refill normal, no clubbing, cyanosis or edema, no calf tenderness and no pedal edema NARRATIVE EXTREMITY EXAM: Left arm, forearm, hand swelling Neuro: COMMON NORMALS: patient oriented x3 Psych: COMMON NORMALS: mental status grossly normal Data : 08/04/19 05:07 08/04/19 05:07 A&P Assessment and plan (1) Left upper extremity deep vein thrombosis: Status: Acute (2) Esophageal cancer, stage IV: Status: Acute (3) Dehydration: Status: Acute (4) Failure to thrive: Status: Acute (5) Malnutrition: Status: Acute Additional A&P Information 53-year-old female with past medical history of distal esophageal cancer, stage IV on palliative radiation therapy with a history of possibly refusing palliative chemotherapy in the past, cachectic appearing presented to the ER with left upper swelling and poor oral intake. Placement, I would highly recommend detention placement, patient does not want hospice, she has a high risk of readmission, high risk of significant morbidity and mortality associated with complications associated with her (such as falls, bleeding, dehydration etc.) her end-stage esophageal cancer in the near future, working on detention placement DVT of the left upper extremity: As per upper limb Doppler present in left subclavian, axillary and brachial veins. CTA chest negative for any SVC thrombosis but concerning for left supraclavicular mass. No concern for thoracic outlet obstruction. Continue with Lovenox at 1mg/kg body weight every 12 hours subcutaneously. Patient would need to be transitioned over to oral therapy. But given the supraclavicular mass it is likely that if because of patient developing DVT, I have spoken to Dr. 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 she has not has an oncology f/up since then -Patient has a history of refusing detention placement, has a history of not following up Failure to thrive: Dysphagia leading to poor po intake and malnutrition and dehydration Continue with IVF d5NS @ 75cc/hr. Will have to monitor for refeeding syndrome. Check phosphorous and magnesium. For now continue on dysphagia 1 diet. Modified barium swallow evaluation showed no aspiration, but was a difficult study, working on detention placement Dirty urinalysis: Chronically so, in the absence of any other signs of infection such as fever, CVA tenderness, leukocytosis, will hold off on antibiotic treatment. her + UA is more likely suggestive of chronic cystitis and ESBL e.coli colonization, both of which unlikly to benefit from treatment in the absence of active infection. While ideally she may be worked up with cystoscopies, abdominal imaging, etc, would defer for now as this is unlikly to add to her overall quality of life. Will continue macrobid for now as a suppressive approach. Patient has had multiple Er visits for issues ranging from UTI, aspiration pneumonia, dehydration, electrolyte abnormalities etc, all resulting from her underlying malignancy. She lives alone and is quite overwhelmed by her ongoing illness. I presnted the option of SNF/NH placement has accepted this, waiting on detention placement director of physiotherapy services consult for the same CODE STATUS has been changed to limited resuscitation. Agreeable to consider palliative radiation therapy to the left supraclavicular mass Declines hospice option She states her D POA would be her cousin Ms. Niya Hui. Her phone number is [phone] Lovenox therapeutic dose. Dysphagia stage I diet. Attestations Medical Necessity Statement*: She requires hospitalization, for esophageal cancer, with left supraclavicular mass, deconditioning, weakness, awaiting detention placement, DVT Coding Level of Care Code Acute Monitor Worker for Chg Fwd Diagnoses Left upper extremity deep vein thrombosis I82.622 Esophageal cancer, stage IV C15.9 Dehydration E86.0 Failure to thrive Malnutrition E46
--- NOTE | 2019-08-04 16:37 | PM.CONSULT ---
Providers/Reason For Consult Consulting Physican/Specialty*: Dr. 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 She had left supraclavicular and mediastinal lymph node involvement left adrenal and possible retroperitoneal involvement and metastatic disease at T12 at diagnosis. In the past she received 48 Jerry of palliative radiation to the GE junction and 30 Gy palliative radiation to T12 completed here in March 2019. She did not have systemic treatment at that time. She now has progressive disease in her left supraclavicular alex region causing pain and deep venous thrombosis of the left arm. She notes a one-month history of progressive left shoulder and left neck pain described as 12 on a 10 scale of pain over the last month she has had a 2-month history of left arm swelling. She has had weight loss of unclear amount throughout the course of her illness. Despite this she is swallowing well and has not had a PEG tube placed. On admission she had 2 days of nausea and vomiting now improved. She has had ongoing generalized abdominal pain not as severe as her left shoulder pain. On at [facility] she had a ultrasound of the left upper extremity on August 01, 2019 this revealed deep venous thrombosis of the left subclavian axillary and brachial veins. CT scan of the chest revealed increasing left supraclavicular mass bilateral pleural effusions. Social history she moved here 10 years ago to be close to her cousin Niya Hui who helps her and her daily life. She initially lived in [place]. She never finished high school. She lived to support her parents in old age. She has never had a job. She never drove a car. She denies cigarette or alcohol use. She has 1 cat at home at this time. She lives alone with the support of her cousin. Meds/Allergies Home Medications and Allergies Home Medications Medication Instructions Recorded Confirmed Last Taken Type famotidine 20 mg PO BID 03/22/19 08/02/19 07/09/19 History fluticasone propionate 1 spray INTRANASAL DAILY 03/22/19 08/02/19 07/09/19 History lisinopril 10 mg PO DAILY 03/22/19 08/02/19 07/09/19 History metoprolol succinate 12.5 mg PO DAILY 03/22/19 08/02/19 07/09/19 History oxycodone 15 mg PO Q4H PRN 03/22/19 08/02/19 07/09/19 History hydrochlorothiazide 12.5 mg PO DAILY 06/30/19 08/02/19 07/09/19 History ondansetron HCl [Zofran] 4 mg PO DAILY #14 tab 07/06/19 08/02/19 07/08/19 Rx amoxicillin-pot clavulanate 1 tab PO DAILY 07/09/19 08/02/19 07/09/19 History nitrofurantoin monohyd/m-cryst 100 mg PO DAILY 07/09/19 08/02/19 07/09/19 History Allergies Allergy/AdvReac Type Severity Reaction Status Date / Time adhesive Allergy ALGY-Rash Verified 07/06/19 07:56 latex Allergy ALGY-Rash Verified 07/06/19 07:56 Current Medications Current Medications Generic Name Dose Route Start Last Admin Trade Name Freq PRN Reason Stop Dose Admin Enoxaparin Sodium 50 mg 08/02/19 05:45 08/04/19 12:14 Lovenox 1 mg/kg (50 mg) 50 mg SUBCUT Administration Q12H ISIAH Famotidine 20 mg 08/02/19 18:00 08/04/19 08:50 Pepcid Tab PO 20 mg BID ISIAH Administration Fluticasone Propionate 1 spray 08/02/19 10:45 08/04/19 08:50 Flonase INTRANASAL 1 spray DAILY ISIAH Administration Dextrose/Sodium Chloride 1,000 mls @ 75 mls/hr 08/02/19 02:45 08/04/19 01:30 Dextrose 5%-Sod Chloride 0.9% IV 75 mls/hr .[id number] ISIAH Administration Metoprolol Tartrate 25 mg 08/02/19 18:00 08/04/19 08:50 Lopressor PO 25 mg BID ISIAH Administration Morphine Sulfate 2 mg 08/02/19 02:43 08/04/19 13:05 Morphine IVP 2 mg Q4H PRN Administration SEVERE PAIN Nitrofurantoin Macrocrystals 100 mg 08/02/19 21:00 08/03/19 20:01 Macrobid PO 100 mg BEDTIME ISIAH Administration Ondansetron HCl 4 mg 08/02/19 02:43 08/04/19 08:48 Zofran IVP 4 mg Q8H PRN Administration vomiting, or N/V if npo Temazepam 15 mg 08/03/19 21:00 08/03/19 21:11 Restoril PO 15 mg BEDTIME PRN Administration INSOMNIA PFSH Acute PFSH: Medical History Biliary colic Cholecystitis Cholelithiasis Diverticulosis Esophageal cancer, stage IV 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, stage IVb GI bleeding History of diabetes mellitus HTN (hypertension) UTI (urinary tract infection) Surgical History History of cholecystectomy History of esophagogastroduodenoscopy (EGD) Family History Mother Congestive heart failure Social History Smoking and tobacco status: never smoked Alcohol intake: never Vitals/I&O/Wt Last Vital Signs Temp 98.8 F 08/04/19 15:23 Pulse 78 08/04/19 15:23 Resp 18 08/04/19 15:23 BP 110/76 08/04/19 15:23 Pulse Ox 96 08/04/19 15:23 08/04/19 08/04/19 08/04/19 06:59 14:59 22:59 Intake Total 888.75 / 1690.00 360 / 360 Output Total 25 / 725 350 / 350 125 / 475 Balance 863.75 / 965.00 -125 / -115 Physical Exam Narrative: EXAM NARRATIVE: Cachectic woman appearing older than her chronologic age. She had no scleral icterus. She was alert cooperative and able to provide history. Lymph nodes she had distinct 3 to 4 cm left supraclavicular lymph node tender to palpation no other adenopathy. Left arm was distinctly edematous down to the fingers. Left shoulder range of motion was restricted due to pain. Pasting Inspector strength was normal. Abdominal examination revealed diffuse mild tenderness with no rebound no distention. Neurologic examination revealed she was neurologically intact and ambulated with the assistance of a walker no deficits noted. A&P Additional A&P Information In summary my impression is that of progressive stage IV metastatic adenocarcinoma the GE junction. She has benefited from previous palliative radiation therapy with improved GE junction function and reduced back pain. She now has significant progression in her left supraclavicular lymph node causing pain and contributing to her deep venous thrombosis of her left arm. In the past and currently she declined systemic treatment. I recommend a short course of palliative radiation therapy to the left supraclavicular region. She is now declared her CODE STATUS she wants limited heroic measures as outlined by her hospitalist's note. She is interested in moving back to her home with her cousin support. However I question her ability to live independently in the future. She may clearly benefit from the consideration of hospice care. From her previous discussion with her physicians she has declined this however. I would recommend readdressing hospice care in the near future. residential placement for general support appears appropriate despite her wishes to live independently. We will initiate simulation today on August 03 and begin a 5-day course of treatment beginning on August 05, 2019. I reviewed treatment and its goals with both the patient and Dr. Hilliard. Coding Level of Care Code Acute Television News Video Editor for Pancho Alves
[2019-08-04] MEDS: nitrofurantoin SR (BID) 100 mg Capsule PO (20:00)
[2019-08-04] MEDS: temazepam 15 mg Capsule PO (20:00)
[2019-08-05] VITALS (8 sets, daily range): BP systolic 116–147; BP diastolic 81–97; PULSE 80–103; RESP 16–18; TEMP 36.5–36.9; O2SAT 95–99
[2019-08-05] MEDS: enoxaparin 100 mg/mL Syringe 50 MG SUBCUT (01:27)
[2019-08-05] MEDS: morphine 4 mg/mL SDV 1 mL 2 MG IVP ×3 (04:55→14:26)
[2019-08-05 05:49] LABS: Basophils % 0.3 %; Eosinophils % 0.6 %; Hematocrit 31.6 % (37.0-47.0); Hemoglobin 9.9 g/dL (11.5-15.3); Lymphocytes # 0.6 10^3/uL (0.8-4.8); Lymphocytes % 18.2 %; Mean Corpuscular HGB Conc 31.3 g/dL (30.0-36.0); Mean Corpuscular Volume 89.3 fL (81-99); Monocytes # 0.3 10^3/uL (0.2-0.9); Neutrophils # 2.4 10^3/uL (1.8-7.7); Neutrophils % 72.6 %; Nucleated Red Blood Cells % 0 %; Platelet Count 173 10^3/cmm (130-400); Red Blood Count 3.54 10^6/uL (4.1-5.3); Red Cell Distribution Width 14.6 % (12.1-15.1); White Blood Count 3.4 10^3/uL (4.0-10.0)
[2019-08-05 06:03] LABS: Magnesium 1.9 mg/dL (1.7-2.3)
[2019-08-05 06:04] LABS: Alanine Aminotransferase < 5 U/L (0-33); Albumin Level 2.5 g/dL (3.5-5.2); Alkaline Phosphatase 101 IU/L (35-105); Anion Gap 10.5 (5-19); Aspartate Amino Transferase 9 U/L (0-32); Blood Urea Nitrogen 8 mg/dL (6-20); Calcium 7.7 mg/dL (8.5-10.5); Carbon Dioxide 24 mmol/L (22-29); Chloride 107 mmol/L (98-107); Globulin 2.5 g/dL (1.3-4.6); Glomerular Filtration Rate 165.7 mL/min (90-130); Glucose 89 mg/dL (65-115); Osmolality Calculated 281 mOsm/kg (285-295); Potassium 3.5 mmol/L (3.5-5.1); Sodium 138 mmol/L (136-145); Total Bilirubin 0.3 mg/dL (0.15-1.2)
[2019-08-05] MEDS: famotidine 20 mg Tablet PO ×2 (08:38→17:48)
[2019-08-05] MEDS: metoprolol tartrate 25 mg Tablet PO ×2 (08:38→17:48)
[2019-08-05] MEDS: dextrose 5%-sod chloride 0.9% 1,000 ML 75 ML IV (08:39)
[2019-08-05] MEDS: fluticasone nasal spray 16gm Btl 1 SPRAY INTRANASAL (08:39)
[2019-08-05] MEDS: polyethylene glycol 3350 Pkt 17 gm PO (08:43)
--- NOTE | 2019-08-05 09:45 | PC.SOCIAL ---
IMM Page 2 of IMM updated and given to patient. Initialed, dated, and timed and placed back in chart.
[2019-08-05] MEDS: hyDROXYzine 25 mg Capsule PO (10:14)
--- NOTE | 2019-08-05 10:42 | PC.NURSE ---
Patient transported to [facility] at this time for radiation.
--- NOTE | 2019-08-05 11:28 | PC.NURSE ---
Patient returned from the [facility] at this time.
--- NOTE | 2019-08-05 13:02 | PM.PN ---
Subjective Subjective: Interval history: This morning patient states that she feels weak, states that she needs a few more days in the hospital, is going to have radiation therapy later on this afternoon, is awaiting intermediate placement, continues to have a poor appetite Vitals/I&O/Wt Last Vital Signs Temp 98.4 F 08/05/19 11:28 Pulse 86 08/05/19 11:28 Resp 18 08/05/19 11:28 BP 120/87 08/05/19 11:28 Pulse Ox 95 08/05/19 11:28 08/04/19 08/05/19 08/05/19 22:59 06:59 14:59 Intake Total 480 / 1840 1368.75 / 1368.75 Output Total 325 / 675 250 / 925 Balance 155 / 1165 -250 / 915 1368.75 / 1368.75 Physical Exam Const: COMMON NORMALS: no acute distress and patient oriented x3 GENERAL APPEARANCE: ill appearing and frail appearing NUTRITIONAL APPEARANCE: cachectic HENMT: COMMON NORMALS: normocephalic HEAD & SCALP: normocephalic Neck/C-Spine: COMMON NORMALS: no JVD Resp: COMMON NORMALS: normal respiratory effort, No retractions, No use of accessory muscles and clear to auscultation bilaterally AUSCULTATION: clear to auscultation bilaterally Cardio: COMMON NORMALS: no JVD, regular rate, regular rhythm, S1 normal heart sound present and S2 normal heart sound present RATE: regular rate RHYTHM: regular rhythm HEART SOUNDS: S1 normal heart sound present and S2 normal heart sound present GI: COMMON NORMALS: Normal to inspection, nondistended, normoactive bowel sounds present, Soft to palpation, non-tender, No hepatosplenomegaly present, no masses and no bruits PALPATION: Yes Soft to palpation and Yes No hepatosplenomegaly present Extremity: COMMON NORMALS: capillary refill normal, no clubbing, cyanosis or edema, no calf tenderness and no pedal edema NARRATIVE EXTREMITY EXAM: Left arm, forearm, hand swelling Neuro: COMMON NORMALS: patient oriented x3 Psych: COMMON NORMALS: mental status grossly normal Data : 08/05/19 05:39 08/05/19 05:39 A&P Assessment and plan (1) Left upper extremity deep vein thrombosis: Status: Acute (2) Esophageal cancer, stage IV: Status: Acute (3) Dehydration: Status: Acute (4) Failure to thrive: Status: Acute (5) Malnutrition: Status: Acute Additional A&P Information 53-year-old female with past medical history of distal esophageal cancer, stage IV on palliative radiation therapy with a history of possibly refusing palliative chemotherapy in the past, cachectic appearing presented to the ER with left upper swelling and poor oral intake. Placement, I would highly recommend intermediate placement, patient does not want hospice, she has a high risk of readmission, high risk of significant morbidity and mortality associated with complications associated with her (such as falls, bleeding, dehydration etc.) her end-stage esophageal cancer in the near future, working on intermediate placement DVT of the left upper extremity: As per upper limb Doppler present in left subclavian, axillary and brachial veins. CTA chest negative for any SVC thrombosis but concerning for left supraclavicular mass. No concern for thoracic outlet obstruction. Continue with Lovenox at 1mg/kg body weight every 12 hours subcutaneously. Patient would need to be transitioned over to oral therapy. But given the supraclavicular mass it is likely that if because of patient developing DVT, I have spoken to Dr. 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 she has not has an oncology f/up since then -Patient has a history of refusing intermediate placement, has a history of not following up Failure to thrive: Dysphagia leading to poor po intake and malnutrition and dehydration Continue with IVF d5NS @ 75cc/hr. Will have to monitor for refeeding syndrome. Check phosphorous and magnesium. For now continue on dysphagia 1 diet. Modified barium swallow evaluation showed no aspiration, but was a difficult study, working on intermediate placement Dirty urinalysis: Chronically so, in the absence of any other signs of infection such as fever, CVA tenderness, leukocytosis, will hold off on antibiotic treatment. her + UA is more likely suggestive of chronic cystitis and ESBL e.coli colonization, both of which unlikly to benefit from treatment in the absence of active infection. While ideally she may be worked up with cystoscopies, abdominal imaging, etc, would defer for now as this is unlikly to add to her overall quality of life. Will continue macrobid for now as a suppressive approach. Patient has had multiple Er visits for issues ranging from UTI, aspiration pneumonia, dehydration, electrolyte abnormalities etc, all resulting from her underlying malignancy. She lives alone and is quite overwhelmed by her ongoing illness. I presnted the option of SNF/NH placement has accepted this, waiting on intermediate placement youth services librarian consult for the same CODE STATUS has been changed to limited resuscitation. Will have palliative radiation therapy to the left supraclavicular mass Declines hospice option She states her D POA would be her cousin Ms. Niya Hui. Her phone number is [phone] Lovenox therapeutic dose. Dysphagia stage I diet. Attestations Medical Necessity Statement*: Patient requires continued hospitalization due to left upper extremity DVT, esophageal cancer, failure to thrive, dehydration, malnutrition Coding Level of Care Code Acute Trim Mounter for Chg Fwd Diagnoses Left upper extremity deep vein thrombosis I82.622 Esophageal cancer, stage IV C15.9 Dehydration E86.0 Failure to thrive Malnutrition E46
[2019-08-05] MEDS: enoxaparin 60 mg/0.6 mL Syringe 50 MG SUBCUT (14:26)
[2019-08-05] MEDS: nitrofurantoin SR (BID) 100 mg Capsule PO (21:29)
[2019-08-06] VITALS: BP 132/94; PULSE 74; RESP 18; TEMP 36.8; O2SAT 95
[2019-08-06] MEDS: dextrose 5%-sod chloride 0.9% 1,000 ML 75 ML IV (01:21)
[2019-08-06] MEDS: enoxaparin 60 mg/0.6 mL Syringe 50 MG SUBCUT (01:21)
[2019-08-06 03:50] VITALS: BP 135/99; PULSE 79; RESP 18; TEMP 36.7; O2SAT 97
[2019-08-06 04:54] VITALS: RESP 16
[2019-08-06] MEDS: morphine 4 mg/mL SDV 1 mL 2 MG IVP (04:54)
[2019-08-06 05:41] LABS: Basophils % 0.3 %; Eosinophils % 0.8 %; Hemoglobin 9.8 g/dL (11.5-15.3); Lymphocytes # 0.6 10^3/uL (0.8-4.8); Lymphocytes % 16.9 %; Mean Corpuscular HGB Conc 30.6 g/dL (30.0-36.0); Mean Corpuscular Hemoglobin 28.2 pg (28.0-34.0); Monocytes # 0.3 10^3/uL (0.2-0.9); Monocytes % 8.7 %; Neutrophils # 2.8 10^3/uL (1.8-7.7); Nucleated Red Blood Cells % 0 %; Platelet Count 157 10^3/cmm (130-400); Red Blood Count 3.48 10^6/uL (4.1-5.3); Red Cell Distribution Width 14.9 % (12.1-15.1); White Blood Count 3.8 10^3/uL (4.0-10.0)
[2019-08-06 06:01] LABS: Alanine Aminotransferase < 5 U/L (0-33); Albumin Level 2.2 g/dL (3.5-5.2); Alkaline Phosphatase 101 IU/L (35-105); Anion Gap 12.3 (5-19); Aspartate Amino Transferase 8 U/L (0-32); Blood Urea Nitrogen 7 mg/dL (6-20); Calcium 8.2 mg/dL (8.5-10.5); Carbon Dioxide 23 mmol/L (22-29); Chloride 107 mmol/L (98-107); Glomerular Filtration Rate 165.7 mL/min (90-130); Glucose 94 mg/dL (65-115); Osmolality Calculated 284 mOsm/kg (285-295); Potassium 3.3 mmol/L (3.5-5.1); Sodium 139 mmol/L (136-145); Total Bilirubin 0.3 mg/dL (0.15-1.2); Total Protein 5.2 g/dL (6.6-8.7)
[2019-08-06 06:24] LABS: Magnesium 1.8 mg/dL (1.7-2.3)
[2019-08-06 07:07] VITALS: BP 125/88; PULSE 84; RESP 16; TEMP 36.6; O2SAT 98
[2019-08-06] MEDS: fluticasone nasal spray 16gm Btl 1 SPRAY INTRANASAL (08:45)
[2019-08-06] MEDS: ondansetron 2 mg/ML SDV 2 mL 4 MG IVP (08:45)
[2019-08-06] MEDS: famotidine 20 mg Tablet PO (08:48)
[2019-08-06] MEDS: metoprolol tartrate 25 mg Tablet PO (08:48)
[2019-08-06] MEDS: polyethylene glycol 3350 Pkt 17 gm PO (08:48)
--- NOTE | 2019-08-06 10:39 | PC.NURSE ---
Patient to the [facility] for Radiation at this time.
[2019-08-06 11:02] VITALS: BP 111/70; PULSE 77; RESP 16; TEMP 36.7; O2SAT 97
--- NOTE | 2019-08-06 12:20 | PC.NURSE ---
This procedure writer is at bedside with Dr. Bae who again is explaining to Maria D the patient that she is on a blood thinner for the blood clot in her left arm and he is encouraging her to go to the [facility] for a while. Dr. Bae explained that he thinks she will not be safe at home. Dr. Bae also explained that she needs to finish her radiation treatments and that social media project manager were going to try and set up a ride for her to get to the [facility] for the treatment. Maria D kept interrupting Dr. Bae and stating, I just want to go home. Will you just send me home please! Dr. Bae stated, I will but I need you here what I am saying about these two things. I need you to finish your radiation treatment and I need you to be very careful because of the blood thinner your on if you fall you could bleed into your head and it could kill you or you could break a bone if you fall. Maria D stated, You have already told me that and I understand. Now please let me go home! Dr. Bae stated he would work on her discharge. Patient resting in bed at this time.
--- NOTE | 2019-08-06 12:24 | PM.DCS ---
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, stage IVb (3) Dehydration: Status: Acute (4) Failure to thrive: Status: Acute (5) Malnutrition: Status: Acute Reason for Visit Reason for Visit: Reason For Visit: UTI; WEAKNESS; ESOPHEGEAL CANCER Hospital Course Discharge Summary: This is a 53-year-old female with a past medical history of distal esophageal cancer, stage IV on palliative radiation therapy, with a history of refusing palliative chemotherapy in the past, chronic malnutrition, protein calorie malnutrition, cachexia, failure to thrive, chronic cystitis who presents to [facility] due to complaints of left upper extremity swelling Patient was admitted for DVT in left subclavian, axillary, and brachial veins. CTA of the chest was negative for SVC thrombosis, but did show a left supraclavicular mass, no thoracic outlet obstruction, patient was started on therapeutic anticoagulation, Dr. Hilliard from hematology and oncology was consulted, advised the patient has a history of noncompliance and not showing up in the past, but was compliant with her palliative radiation therapy to the distal esophagus, he has been trying to get her to go to senior care, but patient refuses, declines hospice. In consultation with Dr. Escobar radiation oncology, patient had 2 rounds of palliative radiation therapy to her left supraclavicular mass as inpatient. Patient is scheduled for 5 sessions of radiation therapy, next scheduled for tomorrow Saturday at 11:30 AM. For her upper extremity DVT, she was discharged on Eliquis, with close follow-up with Dr. Hilliard in 1 week. During her hospital admission, patient was quite weak, frail, fatigued, had cachexia, and had protein calorie malnutrition. I had discussed with patient, multiple times her goals of care, patient declined hospice, wanted radiation therapy, did not want chemotherapy did not want senior care placement, wanted to go home. In my opinion patient is unsafe to go home, she is weak, frail, she has a high risk of falls, high risk of bleeding, high risk of trauma, high risk of significant morbidity and mortality, high risk of , high risk of significant injury. Given her end-stage esophageal cancer, poor functional state, I am quite concerned for her wellbeing, concerned for her care at home, and concern for significant suffering that might be in her near future if she were to go home. I even had started the process for senior care placement, even had a bed available at 1 of the local nursing homes, but patient adamantly refused senior care placement. I multiple times in the presence of nursing staff and case workers discussed my concerns as previously mentioned, patient voiced understanding, all questions answered, accepted all the risks, wanted to go home, was discharged home. In addition I went over the risks of anticoagulation, risks of bleeding, GI bleed, trauma, significant injury, significant life-threatening bleeding, significant morbidity mortality, patient has accepted the risk, voiced understanding, all questions answered, agreed to anticoagulation, wanted to go home. Patient was discharged home, accepting all the risks. In speaking with Dr. Hilliard, Dr. Hilliard has had multiple discussions with patient in regards to his concerns of her living at home by herself, but patient adamantly refused senior care placement. I will discharge the patient home on at least home health care. Physical Exam Const: COMMON NORMALS: no acute distress and patient oriented x3 GENERAL APPEARANCE: ill appearing and frail appearing NUTRITIONAL APPEARANCE: cachectic HENMT: COMMON NORMALS: normocephalic HEAD & SCALP: normocephalic Neck/C-Spine: COMMON NORMALS: no JVD Resp: COMMON NORMALS: normal respiratory effort, No retractions, No use of accessory muscles and clear to auscultation bilaterally AUSCULTATION: clear to auscultation bilaterally Cardio: COMMON NORMALS: no JVD, regular rate, regular rhythm, S1 normal heart sound present and S2 normal heart sound present RATE: regular rate RHYTHM: regular rhythm HEART SOUNDS: S1 normal heart sound present and S2 normal heart sound present GI: COMMON NORMALS: Normal to inspection, nondistended, normoactive bowel sounds present, Soft to palpation, non-tender, No hepatosplenomegaly present, no masses and no bruits PALPATION: Yes Soft to palpation and Yes No hepatosplenomegaly present Extremity: COMMON NORMALS: capillary refill normal, no clubbing, cyanosis or edema, no calf tenderness and no pedal edema NARRATIVE EXTREMITY EXAM: Left arm, forearm, hand swelling Neuro: COMMON NORMALS: patient oriented x3 Psych: COMMON NORMALS: mental status grossly normal Discharge Data Data Completed and Pending: Completed Studies During Hospitalization Category Date Time Status CT RTP [CT guided radtherapyplan [id number]] Routine Cat Scan 08/04/19 12:[address] angio chest PE protcl [id number] Urge nt Cat Scan 08/01/19 23:07 Completed [place] barium swallow modifd [id number] Rout ine Exams 08/03/19 09:00 Completed XR chest 1V sandra ble [id number] Stat Exams 08/01/19 22:00 [place] [id number] Urgent Ultrasound 08/01/19 21:56 Completed Pending at discharge Category Date Time Status Blood Culture Sta t Lab 08/01/19 23:15 Results Complete Blood Co unt w/Auto AM LABS Lab 08/07/19 04:00 Ordered Complete Blood Co unt w/Auto AM LABS Lab 08/08/19 04:00 Ordered Comprehensive Met abolic Panel AM LA BS Lab 08/07/19 04:00 Ordered Comprehensive Met abolic Panel AM LA BS Lab 08/07/19 04:00 Ordered Comprehensive Met abolic Panel AM LA BS Lab 08/08/19 04:00 Ordered Magnesium AM LABS Lab 08/07/19 04:00 Ordered Magnesium AM LABS Lab 08/08/19 04:00 Ordered Phosphorus AM LAB S Lab 08/07/19 04:00 Ordered Phosphorus AM LAB S Lab 08/08/19 04:00 Ordered Labs from last 24 hours 08/06/19 08/06/19 08/06/19 05:30 05:30 05:30 WBC 3.8 L RBC 3.48 L Hgb 9.8 L Hct 32.0 L MCV 92.0 MCH 28.2 MCHC 30.6 RDW 14.9 Plt Count 157 MPV 9.0 Neut % (Auto) 73.0 Lymph % (Auto) 16.9 [place] % (Auto) 8.7 Eos % (Auto) 0.8 Baso % (Auto) 0.3 Neut # (Auto) 2.8 Lymph # (Auto) 0.6 L [place] # (Auto) 0.3 Eos # (Auto) 0.0 Baso # (Auto) 0.0 Nucleated RBC % (a uto) 0 Nucleated RBCs # 0.0 Sodium 139 Potassium 3.3 L Chloride 107 Carbon Dioxide 23 Anion Gap 12.3 BUN 7 Creatinine 0.4 L GFR Calculation 165.7 H Glucose 94 Calculated Osmolal ity 284 L Calcium 8.2 L Phosphorus 2.0 L Magnesium 1.8 Total Bilirubin 0.3 AST 8 ALT < 5 Alkaline Phosphata se 101 Total Protein 5.2 L Albumin 2.2 L Globulin 3.0 Vitals: Last Vital Signs Temp 98.0 F 08/06/19 11:02 Pulse 77 08/06/19 11:02 Resp 16 08/06/19 11:02 BP 111/70 08/06/19 11:02 Pulse Ox 97 08/06/19 11:02 Discharge Plan Discharge Patient Disposition: Home, Self-Care Condition: Stable Prescriptions: New Joannaquis DVT-PE Treat 30D Start 5 mg (74 tabs) tablets,dose pack See Rx Instructions .ROUTE .COMPLEX Qty: 74 RF: 0 Continued hydrochlorothiazide 12.5 mg Tablet 12.5 mg PO DAILY RF: 0 Hold Instructions: Resume on 07/09/19. hold until seen by primary care ondansetron HCl [Zofran] 4 mg tablet 4 mg PO DAILY Qty: 14 RF: 0 oxycodone 15 mg tablet 15 mg PO Q4H PRN (Reason: Pain) RF: 0 famotidine 20 mg tablet 20 mg PO BID RF: 0 lisinopril 10 mg tablet 10 mg PO DAILY RF: 0 metoprolol succinate 25 mg tablet extended release 24 hr 12.5 mg PO DAILY RF: 0 fluticasone propionate 50 mcg/actuation spray,suspension 1 spray INTRANASAL DAILY RF: 0 Changed nitrofurantoin monohyd/m-cryst 100 mg capsule 100 mg PO BEDTIME Qty: 0 RF: 0 Discontinued amoxicillin-pot clavulanate 875-125 mg tablet 1 tab PO DAILY RF: 0 Referrals: Antony Armstrong MD [Primary Care Provider] - 08/10/19 8:45 am Mikie Hilliard MD [Hospitalist] - 1 week Alberto Escobar MD [Hospitalist] - 08/07/19 11:30 am [facility] Discharge Diet: Regular Discharge Activity: Resume usual activity Patient Instructions: Apixaban (By mouth), External Radiation Therapy (DC), Deep Venous Thrombosis (DC), Fall Prevention (DC) Activity Restrictions/Additional Instructions: -Please take Eliquis for left upper extremity DVT -If you fall on a blood thinner call 911 -If you have bloody or black stools, bloody cough, bloody vomit call 911 -If you fall please come immediately to the emergency room -Please hydrate well -Please follow-up with oncology -Please follow-up with radiation therapy tomorrow at 1130 Discharge Attestations Time Spent in Discharge Care*: less than 30 min Quality Metrics Clinical Quality Measures During this hospital stay, did patient experience: VTE Contraindication to Overlap Therapy: Overlap treatment not indicated VTE Discharge Education: Education about anticoagulant therapy/Care Notes given Coding Level of Care Code Acute Sketch Maker for Pancho Fwd Diagnoses Left upper extremity deep vein thrombosis I82.622 Esophageal cancer, stage IV C15.9 Dehydration E86.0 Failure to thrive Malnutrition E46
[2019-08-06 13:45] VITALS: BP 111/70; PULSE 77; RESP 16; TEMP 36.7; O2SAT 97
--- NOTE | 2019-08-06 13:45 | PC.NURSE ---
Reviewed patient's discharge with patient at this time including the new medication Eliquis and follow up appointments. Patient verbalized understanding. Patient is alert. Respirations even and non-labored on room air. IV removed intact. Reviewed patient's discharge with her niece Niya as well. Niya verbalized understanding. Patient was wheel chaired to private car.
== END 2019-08-06 13:45 | disposition home or self-care (01) | DRG 300 ==
LOC: ER 08-02 02:06 → MEDSURG 08-02 02:06
PROVIDERS: Nurse Practitioner Family; Student in an Organized Health Care Education/Training Program; Admitting Provider Student in an Organized Health Care Education/Training Program; PCP Family Medicine; Visit Provider Family Medicine
DX: I82.622 Acute embolism and thrombosis of deep veins of left upper extremity (principal); C15.5 Malignant neoplasm of lower third of esophagus; C77.8 Secondary and unspecified malignant neoplasm of lymph nodes of multiple regions; C79.72 Secondary malignant neoplasm of left adrenal gland; C79.51 Secondary malignant neoplasm of bone; J90 Pleural effusion, not elsewhere classified; E46 Unspecified protein-calorie malnutrition; Z68.1 Body mass index [BMI] 19.9 or less, adult; E11.9 Type 2 diabetes mellitus without complications; I10 Essential (primary) hypertension; Z87.440 Personal history of urinary (tract) infections; E86.0 Dehydration; Z92.3 Personal history of irradiation; G89.3 Neoplasm related pain (acute) (chronic); Z79.891 Long term (current) use of opiate analgesic
CPT/HCPCS: 12345; 36415; 71045; 71275; 74230; 77280; 77295; 77300; 77334; 77387; 77412; 80053; 81001; 83605; 83735; 84100; 85025; 85610; 85730; 87040; 92523; 92610; 92611; 93971; 96372; 96375; 97110; 97116; 97161; 97530; 99284; J0696; J0743; J1650; J2270; J2405; J2543; J7040; J7050; Q9967